=== PATIENT | female | born 1940 | race Caucasian/White ===

== ENCOUNTER 2019-05-27 09:39 | Outpatient (CLI) | payer MEDICARE, OTHER, SELFPAY ==
--- NOTE | ~2019-05-27 | XR_ITS ---
EXAMINATION: XR chest 2V EXAM DATE: 05/27/2019 10:32 INDICATION: Dyspnea. TECHNIQUE: Frontal and lateral projections of the chest obtained and reviewed. There is no prior osmani dy for comparison. FINDINGS: The lungs are clear. There are no pleural effusions. The cardiomediastinal silhouette is within normal limits. There is no pneumothorax suspected. There are mild bony degenerative changes. There is right humeral head rotator cuff repair anchor. IMPRESSION: Unremarkable chest x-ray exam. Reviewed, dictated and finalized at location B. UP SUPERVISOR
--- NOTE | 2019-05-27 10:15 | ECG_ITS ---
Measurements Intervals [place] Rate: 71 P: 69 [place]: 171 QRS: 58 QRSD: 98 T: 75 QT: 391 QTc: 426 Interpretive Statements SINUS RHYTHM NORMAL ECG Electronically Signed On 05-27-2019 10:25:55 MATERIAL CREW SUPERVISOR by Jovanny Castro D.O.
== END 2019-05-27 09:40 | disposition home or self-care (01) ==
LOC: CHSLAB 09:42
PROVIDERS: PCP Internal Medicine; Visit Provider Internal Medicine
DX: R00.2 Palpitations (principal); R06.00 Dyspnea, unspecified
CPT/HCPCS: 71046; 93005

== ENCOUNTER 2019-09-17 08:38 | Outpatient (CLI) | payer MEDICARE, SELFPAY ==
[2019-09-17 08:49] LABS: Basophils Absolute Auto 0.02 K/mm3 (0.00-0.10); Basophils Percent Auto 0.3 % (0.0-1.0); Eosinophils Absolute Auto 0.07 K/mm3 (0.02-0.50); Eosinophils Percent Auto 1.1 % (1.0-6.0); Hematocrit 39.9 % (35.0-42.0); Hemoglobin 13.5 g/dL (11.7-13.8); Immature Granulocyte Absolute 0.02 K/mm3 (0.00-0.00); Immature Granulocyte Percent A 0.3 % (0.0-0.0); Mean Corpuscular HGB Conc 33.8 g/dL (32.0-36.0); Mean Corpuscular Hemoglobin 29.7 pg (27.0-31.0); Mean Corpuscular Volume 87.9 fL (78.0-102.0); Monocytes Absolute Auto 0.64 K/mm3 (0.10-0.90); Monocytes Percent Auto 10.3 % (2.0-11.0); Neutrophils Absolute Auto 3.7 K/mm3 (1.7-7.2); Platelet Count Result 316 K/mm3 (150-420); Red Blood Count 4.54 M/mm3 (4.20-5.40); Red Cell Distribution Width 12.8 % (11.6-14.4); White Blood Count 6.2 K/mm3 (4.8-10.8)
[2019-09-17 09:00] LABS: Add Urine Microscopic? NO; Appearance Urine Clear (Clear); Bilirubin Urine Negative (Negative); Blood Urine Negative (Negative); Color Urine Yellow (Yellow); Glucose Urine UA Negative (Negative); Ketones Urine Negative (Negative); Leukocyte Esterase Ur Negative (Negative); Nitrate Urine Negative (Negative); Protein Urine Negative (Negative); Urobilinogen Urine 0.2 mg/dL (0.2-1.0)
[2019-09-17 09:35] LABS: Alanine Aminotransferase 50 U/L (14-59); Alkaline Phosphatase 135 U/L (46-116); Aspartate Amino Transferase 35 U/L (15-37); Bilirubin,Total 0.7 mg/dL (0.00-1.00); Blood Urea Nitrogen 17 mg/dL (7-18); Calcium 8.7 mg/dL (8.5-10.1); Carbon Dioxide 31 mmol/L (21-32); Chloride 98 mmol/L (98-108); Creatine Kinase 121 U/L (26-192); Estimated Glomerular Filt Rate > 60; Free T3 2.44 pg/mL (2.18-3.98); Free T4 Free Thyroxine 1.18 ng/dL (0.76-1.46); Glucose 93 mg/dL (70-99); HDL Direct 57 mg/dL (40-60); Osmolality Calculated 283 mOsm/kg (285-295); Sodium 136 mmol/L (136-145); Thyroid Stimulating Hormone 1.13 uIU/mL (0.36-3.74); Total Protein 6.8 g/dL (6.4-8.2); Triglycerides 111 mg/dL (0-150)
[2019-09-17 09:47] LABS: Cholesterol 195 mg/dL (0-200); LDL Cholesterol Calculated 116 mg/dL (<130)
[2019-09-22 20:24] LABS: Vitamin D 25 Hydroxy 54 ng/mL (30-100)
== END 2019-09-17 08:39 | disposition home or self-care (01) ==
LOC: CHSLAB 08:41
PROVIDERS: PCP Internal Medicine; Visit Provider Internal Medicine
DX: E78.2 Mixed hyperlipidemia (principal); M81.0 Age-related osteoporosis without current pathological fracture; E04.1 Nontoxic single thyroid nodule; I10 Essential (primary) hypertension; D13.6 Benign neoplasm of pancreas
CPT/HCPCS: 36415; 80053; 80061; 81003; 82306; 82550; 84439; 84443; 84481; 85025

== ENCOUNTER 2020-01-28 13:19 | Outpatient (CLI) | payer MEDICARE, OTHER, SELFPAY ==
[2020-01-28 13:40] VITALS: BP 128/69; PULSE 72; RESP 14; TEMP 36.4; O2SAT 98
[2020-01-28] MEDS: ZOLEDRONIC ACID 5 MG/100 ML 100 ML 400 MG IVPB (13:45)
--- NOTE | 2020-01-28 14:11 | PC.NURSE ---
Here for yearly Reclast infusion. No concerns voiced. Reclast infusion administered. Tolerated well. Reinforced teaching on Relcast medication. Safe exit of hospital.
== END 2020-01-28 13:20 | disposition home or self-care (01) ==
PROVIDERS: PCP Internal Medicine; Visit Provider Internal Medicine
DX: M81.0 Age-related osteoporosis without current pathological fracture (principal)
CPT/HCPCS: 96374; J3489

== ENCOUNTER 2020-03-25 08:53 | Outpatient (CLI) | payer MEDICARE, SELFPAY ==
[2020-03-25 09:04] LABS: Basophils Absolute Auto 0.03 K/mm3 (0.00-0.10); Basophils Percent Auto 0.5 % (0.0-1.0); Eosinophils Percent Auto 1.5 % (1.0-6.0); Hematocrit 40.9 % (35.0-42.0); Hemoglobin 13.3 g/dL (11.7-13.8); Immature Granulocyte Absolute 0.02 K/mm3 (0.00-0.00); Immature Granulocyte Percent A 0.3 % (0.0-0.0); Lymphocytes Absolute Auto 1.99 K/mm3 (1.10-4.50); Lymphocytes Percent Auto 29.9 % (18.0-42.0); Mean Corpuscular HGB Conc 32.5 g/dL (32.0-36.0); Mean Corpuscular Volume 89.1 fL (78.0-102.0); Mean Platelet Volume 8.9 fl (9.2-11.8); Monocytes Absolute Auto 0.53 K/mm3 (0.10-0.90); Neutrophils Percent Auto 59.8 % (50.0-70.0); Platelet Count Result 327 K/mm3 (150-420); Red Blood Count 4.59 M/mm3 (4.20-5.40); Red Cell Distribution Width 13.1 % (11.6-14.4); White Blood Count 6.7 K/mm3 (4.8-10.8)
[2020-03-25 09:14] LABS: Add Urine Microscopic? NO; Appearance Urine Clear (Clear); Bilirubin Urine Negative (Negative); Blood Urine Negative (Negative); Color Urine Yellow (Yellow); Glucose Urine UA Negative (Negative); Ketones Urine Negative (Negative); Leukocyte Esterase Ur Negative (Negative); Nitrate Urine Negative (Negative); Protein Urine Negative (Negative); Urobilinogen Urine 0.2 mg/dL (0.2-1.0)
[2020-03-25 09:35] LABS: Creatinine Urine 44.16 mg/dL (40-278); MALB Creatinine Ratio 29.4 mg/g (0-30); Microalbumin Urine Random < 13.0 mg/L
[2020-03-25 09:54] LABS: Alanine Aminotransferase 74 U/L (14-59); Albumin Level 4.2 g/dL (3.4-5.0); Alkaline Phosphatase 166 U/L (46-116); Anion Gap 9 mmol/L (8-16); Aspartate Amino Transferase 43 U/L (15-37); Bilirubin,Total 0.6 mg/dL (0.00-1.00); Blood Urea Nitrogen 16 mg/dL (7-18); Calcium 9.2 mg/dL (8.5-10.1); Carbon Dioxide 29 mmol/L (21-32); Chloride 99 mmol/L (98-108); Cholesterol 188 mg/dL (0-200); Creatine Kinase 206 U/L (26-192); Estimated Glomerular Filt Rate > 60; Free T3 2.86 pg/mL (2.18-3.98); Free T4 Free Thyroxine 1.11 ng/dL (0.76-1.46); Glucose 89 mg/dL (70-99); HDL Direct 54 mg/dL (40-60); LDL Cholesterol Calculated 110 mg/dL (<130); Osmolality Calculated 284 mOsm/kg (285-295); Potassium 4.3 mmol/L (3.5-5.1); Sodium 137 mmol/L (136-145); Thyroid Stimulating Hormone 1.62 uIU/mL (0.36-3.74); Triglycerides 119 mg/dL (0-150)
[2020-03-30 12:08] LABS: Vitamin D 25 Hydroxy 54 ng/mL (30-100)
== END 2020-03-25 08:54 | disposition home or self-care (01) ==
LOC: CHSLAB 08:55
PROVIDERS: PCP Internal Medicine; Visit Provider Internal Medicine
DX: E78.2 Mixed hyperlipidemia (principal); I10 Essential (primary) hypertension; M81.0 Age-related osteoporosis without current pathological fracture; E04.1 Nontoxic single thyroid nodule; D13.6 Benign neoplasm of pancreas
CPT/HCPCS: 36415; 80053; 80061; 81003; 82043; 82306; 82550; 84439; 84443; 84481; 85025

== ENCOUNTER 2020-04-19 08:52 | Outpatient (CLI) | payer MEDICARE, SELFPAY ==
[2020-04-19 11:25] LABS: Alanine Aminotransferase 61 U/L (14-59); Albumin Level 4.3 g/dL (3.4-5.0); Alkaline Phosphatase 124 U/L (46-116); Anion Gap 8 mmol/L (8-16); Aspartate Amino Transferase 39 U/L (15-37); Bilirubin,Total 0.6 mg/dL (0.00-1.00); Blood Urea Nitrogen 16 mg/dL (7-18); Calcium 9.4 mg/dL (8.5-10.1); Carbon Dioxide 30 mmol/L (21-32); Chloride 98 mmol/L (98-108); Estimated Glomerular Filt Rate 58; Glucose 87 mg/dL (70-99); Osmolality Calculated 282 mOsm/kg (285-295); Potassium 4.4 mmol/L (3.5-5.1); Sodium 136 mmol/L (136-145); Total Protein 7.2 g/dL (6.4-8.2)
== END 2020-04-19 08:53 | disposition home or self-care (01) ==
LOC: CHSLAB 08:53
PROVIDERS: PCP Internal Medicine; Visit Provider Internal Medicine
DX: R94.5 Abnormal results of liver function studies (principal)
CPT/HCPCS: 36415; 80053

== ENCOUNTER 2020-07-15 08:32 | Outpatient (CLI) | payer MEDICARE, SELFPAY ==
[2020-07-15 09:51] LABS: Alanine Aminotransferase 48 U/L (14-59); Albumin Level 4.1 g/dL (3.4-5.0); Alkaline Phosphatase 115 U/L (46-116); Anion Gap 5 mmol/L (8-16); Aspartate Amino Transferase 28 U/L (15-37); Bilirubin,Total 0.7 mg/dL (0.00-1.00); Blood Urea Nitrogen 13 mg/dL (7-18); Carbon Dioxide 31 mmol/L (21-32); Chloride 96 mmol/L (98-108); Estimated Glomerular Filt Rate > 60; Glucose 92 mg/dL (70-99); Osmolality Calculated 274 mOsm/kg (285-295); Potassium 4.3 mmol/L (3.5-5.1); Sodium 132 mmol/L (136-145); Total Protein 6.9 g/dL (6.4-8.2)
== END 2020-07-15 08:33 | disposition home or self-care (01) ==
LOC: CHSLAB 08:34
PROVIDERS: PCP Internal Medicine; Visit Provider Internal Medicine
DX: R94.5 Abnormal results of liver function studies (principal)
CPT/HCPCS: 36415; 80053

== ENCOUNTER 2020-09-16 08:54 | Outpatient (CLI) | payer MEDICARE, SELFPAY ==
[2020-09-16 09:11] LABS: Basophils Absolute Auto 0.02 K/mm3 (0.00-0.10); Basophils Percent Auto 0.3 % (0.0-1.0); Eosinophils Absolute Auto 0.11 K/mm3 (0.02-0.50); Eosinophils Percent Auto 1.5 % (1.0-6.0); Hematocrit 41.8 % (35.0-42.0); Hemoglobin 14.1 g/dL (11.7-13.8); Immature Granulocyte Absolute 0.03 K/mm3 (0.00-0.00); Immature Granulocyte Percent A 0.4 % (0.0-0.0); Lymphocytes Absolute Auto 1.73 K/mm3 (1.10-4.50); Lymphocytes Percent Auto 23.3 % (18.0-42.0); Mean Corpuscular HGB Conc 33.7 g/dL (32.0-36.0); Mean Corpuscular Hemoglobin 29.3 pg (27.0-31.0); Mean Corpuscular Volume 86.9 fL (78.0-102.0); Mean Platelet Volume 9.1 fl (9.2-11.8); Monocytes Absolute Auto 0.64 K/mm3 (0.10-0.90); Monocytes Percent Auto 8.6 % (2.0-11.0); Neutrophils Absolute Auto 4.9 K/mm3 (1.7-7.2); Neutrophils Percent Auto 65.9 % (50.0-70.0); Platelet Count Result 288 K/mm3 (150-420); Red Blood Count 4.81 M/mm3 (4.20-5.40); Red Cell Distribution Width 12.8 % (11.6-14.4); White Blood Count 7.4 K/mm3 (4.8-10.8)
[2020-09-16 09:25] LABS: Add Urine Microscopic? NO; Appearance Urine Clear (Clear); Bilirubin Urine Negative (Negative); Blood Urine Negative (Negative); Color Urine Yellow (Yellow); Glucose Urine UA Negative (Negative); Ketones Urine Negative (Negative); Leukocyte Esterase Ur Negative (Negative); Nitrate Urine Negative (Negative); Protein Urine Negative (Negative); Urobilinogen Urine 0.2 mg/dL (0.2-1.0)
[2020-09-16 10:18] LABS: Alanine Aminotransferase 61 U/L (14-59); Albumin Level 4.1 g/dL (3.4-5.0); Alkaline Phosphatase 135 U/L (46-116); Anion Gap 10 mmol/L (8-16); Aspartate Amino Transferase 34 U/L (15-37); Bilirubin,Total 0.7 mg/dL (0.00-1.00); Blood Urea Nitrogen 16 mg/dL (7-18); Calcium 9.4 mg/dL (8.5-10.1); Carbon Dioxide 30 mmol/L (21-32); Chloride 98 mmol/L (98-108); Cholesterol 199 mg/dL (0-200); Estimated Glomerular Filt Rate 60; Free T3 2.75 pg/mL (2.18-3.98); Free T4 Free Thyroxine 1.12 ng/dL (0.76-1.46); Glucose 91 mg/dL (70-99); HDL Direct 53 mg/dL (40-60); LDL Cholesterol Calculated 120 mg/dL (<130); Osmolality Calculated 287 mOsm/kg (285-295); Potassium 4.2 mmol/L (3.5-5.1); Sodium 138 mmol/L (136-145); Thyroid Stimulating Hormone 1.78 uIU/mL (0.36-3.74); Total Protein 6.8 g/dL (6.4-8.2); Triglycerides 130 mg/dL (0-150)
[2020-09-18 20:40] LABS: Vitamin D 25 Hydroxy 44 ng/mL (30-100)
[2020-09-20 04:33] LABS: Thyroxin Binding Globulin 17.3 mcg/mL (13.5-30.9)
== END 2020-09-16 08:55 | disposition home or self-care (01) ==
LOC: CHSLAB 08:57
PROVIDERS: PCP Internal Medicine; Visit Provider Internal Medicine
DX: E78.2 Mixed hyperlipidemia (principal); I10 Essential (primary) hypertension; E04.1 Nontoxic single thyroid nodule; M81.0 Age-related osteoporosis without current pathological fracture
CPT/HCPCS: 36415; 80053; 80061; 81003; 82306; 84439; 84442; 84443; 84481; 85025

== ENCOUNTER 2020-09-28 15:32 | Outpatient (CLI) | payer MEDICARE, OTHER, SELFPAY ==
--- NOTE | ~2020-09-28 | XR_ITS ---
XR ankle LT min 3V DATE: 09/28/2020 15:54 INDICATION: Lateral left ankle pain TECHNIQUE: 4 views COMPARISON: None FINDINGS: There is mild plantar and posterior calcaneal enthesopathy. There is mild lateral soft tissue swelling of the ankle. No fracture or dislocation of the ankle or disruption of the ankle mortise is evident. No periosteal reaction or bone destruction. IMPRESSION: Mild lateral soft tissue swelling Plantar and posterior calcaneal enthesopathy Reviewed, dictated and finalized at location A.
== END 2020-09-28 15:33 | disposition home or self-care (01) ==
LOC: CHSIMG 15:34
PROVIDERS: PCP Internal Medicine; Visit Provider Internal Medicine
DX: M25.572 Pain in left ankle and joints of left foot (principal); M25.472 Effusion, left ankle
CPT/HCPCS: 73610

== ENCOUNTER 2020-10-04 08:02 | Outpatient (CLI) | payer MEDICARE, OTHER, SELFPAY ==
--- NOTE | ~2020-10-04 | CT_ITS ---
EXAMINATION: CT abdomen w con INDICATION: Right upper quadrant pain, elevated liver function tests, history of pancreatic cancer an d Whipple procedure TECHNIQUE: Computed tomographic images of the abdomen were obtained after the administration of 100 c c of Omnipaque 350 intravenous contrast. The dose-length product (DLP) was 312.25 mGy-cm. Automated e xposure control and iterative reconstruction technique were employed. COMPARISON: 09/29/2013 FINDINGS: The lung bases are clear. The heart size is normal. Punctate calcifications in otherwise no rmal appearing liver and spleen likely represent healed granulomatous disease. Changes of Whipple pro cedure are noted. The pancreas and gallbladder are absent. The adrenal glands and right kidney are no rmal. There is a 9 mm cyst of the left kidney. There are no pathologically enlarged abdominal lymph n odes. There is a small group of retroperitoneal lymph nodes in the upper abdomen which are normal in short axis diameter but were not definitely seen on the comparison examination. There is no free intr aperitoneal gas or evidence of bowel obstruction. There is moderate lumbar spondylosis. A tiny fat-co ntaining umbilical hernia is noted. IMPRESSION: 1. No CT correlate for the patient's symptoms. Reviewed, dictated and finalized at location A.
== END 2020-10-04 08:03 | disposition home or self-care (01) ==
LOC: CHSIMG 08:03
PROVIDERS: PCP Internal Medicine; Visit Provider Internal Medicine
DX: R10.11 Right upper quadrant pain (principal); D49.0 Neoplasm of unspecified behavior of digestive system
CPT/HCPCS: 74160; Q9967

== ENCOUNTER 2020-10-05 11:54 | Outpatient (CLI) | payer MEDICARE, OTHER, SELFPAY ==
--- NOTE | ~2020-10-05 | XR_ITS ---
EXAMINATION: XR chest 2V DATE: 10/05/2020 12:18 INDICATION: Shortness of breath TECHNIQUE: PA and lateral views of the chest are obtained. COMPARISON: 05/27/2019 FINDINGS: The lungs are free of acute opacities. There is no pleural effusion or pneumothorax. The ca rdiomediastinal silhouette is normal. There is moderate thoracic spondylosis. A suture anchor is note d in the right humeral head. IMPRESSION: 1. No acute cardiopulmonary abnormality. Reviewed, dictated and finalized at location A.
--- NOTE | 2020-10-05 12:09 | ECHO_ITS ---
Patient Info Name: Julia Comer Age: 80 years : 1940 Gender: Female Ht: 64 in Wt: 164 lbs BSA: 1.85 m2 HR: 73 bpm BP: 142 / 71 mmHg Heart Rhythm: Sinus Rhythm Technical Quality: Good Exam Date: 10/05/2020 12:03 PM Exam Location: [facility] Patient Status: Outpatient Admit Date: 10/05/2020 Staff Ordering Physician: Toni Tracey MD Control Clerk Head: Shannan Calero RDCS Attending Provider: Toni Tracey MD Referring Physician: Alexy NOEL; Exam Type: CA echo doppler color flow Study Info Indications I10 - Essential (primary) hypertension R06.00 - Dyspnea, unspecified Complete two-dimensional, color flow and Doppler transthoracic echocardiogram is performed. Strain analysis performed. History/Risk Factors Hypertension: Yes Dyslipidemia: No Congenital Heart Disease (CHD): No Peripheral Arterial Disease (PAD): No Myocardial Infarction (CO): No Chronic Lung Disease: No Obesity: Yes Renal Disease: No Coronary Artery Disease (CAD) No Congestive Heart Failure (CHF): No Cardiomyopathy/LV Systolic Dysfunction: No Diabetes Mellitus: No COPD: No Tobacco Use: Never Cerebrovascular Disease: No Family History: Diabetes Mellitus, Coronary Artery Disease Deep Vein Thrombosis (DVT): None Dialysis: None Frailty Scale (CSHA): 2: Well Cardiac Arrest: No Summary 1. Complete two-dimensional, color flow and Doppler transthoracic echocardiogram is performed. 2. Left ventricular chamber dimension is normal. 3. Left ventricular systolic function is normal, estimated at 65-70%. 4. The left ventricular diastolic function is grade I diastolic dysfunction. 5. E/e' 9 is minimally elevated. 6. Global longitudinal strain is normal at -22.2%. 7. Left atrial chamber dimension is mildly enlarged. 8. 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 9. There is mild tricuspid valve regurgitation. 10. No pulmonary hypertension, estimated pulmonary arterial systolic pressure is 35 mmHg. Left Ventricle E/e' 9 is minimally elevated. Global longitudinal strain is normal at -22.2%. Left ventricular chamber dimension is normal. Left ventricular systolic function is normal, estimated at 65-70%. The left ventricular diastolic function is grade I diastolic dysfunction. Right Ventricle Right ventricular systolic function is normal and with normal TAPSE 2.6 cm.. Right ventricular chamber dimension is normal. Left Atria Left atrial chamber dimension is mildly enlarged. Right Atria Right atrial chamber dimension is normal. Atrial Septum Mild atrial septal aneurysm without evidence of shunt by color doppler. Aortic Valve The aortic valve is trileaflet. There is no aortic valve stenosis. There is no aortic valve regurgitation. Pulmonic Valve There is no pulmonic regurgitation. Mitral Valve There is no mitral valve stenosis. There is no mitral valve regurgitation. Tricuspid Valve There is mild tricuspid valve regurgitation. No pulmonary hypertension, estimated pulmonary arterial systolic pressure is 35 mmHg. Pericardium/Pleural There is no pericardial effusion. Inferior Vena Cava Normal inferior vena cava with >50% collapse upon inspiration consistent with normal right atrial pressure, 5 mmHg. Aorta The aortic root size at the sinus of Valsalva is normal. Left Ventricular Outflow Tract
== END 2020-10-05 11:55 | disposition home or self-care (01) ==
LOC: CHSIMG 11:58
PROVIDERS: PCP Internal Medicine; Visit Provider Internal Medicine
DX: R06.00 Dyspnea, unspecified (principal); I10 Essential (primary) hypertension
CPT/HCPCS: 71046; 93306

== ENCOUNTER 2020-11-16 12:21 | Outpatient (CLI) | payer MEDICARE, OTHER, SELFPAY ==
--- NOTE | ~2020-11-16 | MM_ITS ---
EXAMINATION: MM screening [facility] BI [place] HISTORY: Screening TECHNIQUE: Craniocaudal and mediolateral oblique 3-D tomosynthesis images were obtained and synthetic 2-D images were generated. CAD analysis was submitted and interpreted. COMPARISON: Comparison to multiple prior studies sequentially, with oldest reviewed study dated 03/16. BREAST PARENCHYMAL COMPOSITION: There are scattered areas of fibroglandular density. FINDINGS: There is no evidence of suspicious mass, calcification, or architectural distortion to sugg est malignancy in either breast. There has been no suspicious interval change. IMPRESSION: 1. No mammographic evidence of malignancy. 2. Recommend routine screening mammography in one year. BI-RADS Category 1: Negative Reviewed, dictated and finalized at location A.
--- NOTE | ~2020-11-16 | DEXA_ITS ---
Bone Density Report Name: Julia Comer Age: 80 Sex: Female Ethnicity: White Date of : 1940 Indication: monitoring treatment; height loss; cancer; Referring Provider: Toni Tracey Study: Bone densitometry was performed. Exam Date: November 16, 2020 Accession number: [id number] Bone Density: Region BMD T-score Z-score Classification AP Spine(L1-L4) 1.025 -0.2 2.4 Normal Femoral Neck (Left) 0.714 -1.2 1.0 Osteopenia Total Hip (Left) 0.939 0.0 2.0 Normal Femoral Neck (Right) 0.665 -1.7 0.6 Osteopenia Total Hip (Right) 0.931 -0.1 1.9 Normal Femoral Neck Mean 0.690 -1.4 0.8 Osteopenia Total Hip Mean 0.935 -0.1 1.9 Normal World Health Organization criteria for BMD impression classify patients as: Normal (T-score at or above -1.0), Osteopenia (T-score between -1.0 and -2.5), or Osteoporosis (T-score at or below -2.5). 10-year Fracture Risk: FRAX not reported because: Treated for osteoporosis Previous Exams: Region Exam Age BMD T-score BMD Change BMD Change Date g/cm2 vs Baseline vs Previous AP Spine (L1-L4) 11/16/2020 80 1.025 -0.2 -0.028 (-2.7%) -0.035 (-3.3%) 11/14/2018 78 1.060 0.1 0.007 (0.7%) 0.072 (7.3%)* 09/19/2016 76 0.988 -0.5 -0.065 (-6.2%) -0.027 (-2.7%) 04/15/2014 74 1.015 -0.3 -0.038 (-3.6%) -0.033 (-3.1%) 03/31/2011 71 1.048 0.0 -0.005 (-0.5%) 0.006 (0.6%) 03/22/2009 69 1.042 0.0 -0.011 (-1.1%) -0.011 (-1.1%) 03/01/2007 67 1.053 0.1 Total Hip(Left) 11/16/2020 80 0.939 0.0 -0.050 (-5.0%) -0.027 (-2.8%) 11/14/2018 78 0.966 0.2 -0.023 (-2.3%) 0.065 (7.2%)* 09/19/2016 76 0.901 -0.3 -0.088 (-8.9%) -0.006 (-0.7%) 04/15/2014 74 0.907 -0.3 -0.082 (-8.3%) -0.044 (-4.6%) 03/31/2011 71 0.951 0.1 -0.038 (-3.8%) -0.019 (-2.0%) 03/22/2009 69 0.970 0.2 -0.018 (-1.8%) -0.018 (-1.8%) 03/01/2007 67 0.988 0.4 Total Hip(Right) 11/16/2020 80 0.931 -0.1 -0.054 (-5.5%) 0.008 (0.9%)# 11/14/2018 78 0.923 -0.2 -0.063 (-6.4%) 0.004 (0.4%) 04/15/2014 74 0.919 -0.2 -0.067 (-6.8%) -0.026 (-2.7%) 03/31/2011 71 0.944 0.0 -0.041 (-4.2%) -0.027 (-2.8%) 03/22/2009 69 0.971 0.2 -0.014 (-1.5%) -0.014 (-1.5%) 03/01/2007 67 0.986 0.4 *Denotes significance at 95% confidence level, LSC for AP Spine = 0.022 g/cm2, LSC for Total Hip = 0.027 g/cm2 # Denotes dissimilar scan types or analysis methods Clinical Information Provided by Patient: I
== END 2020-11-16 12:22 | disposition home or self-care (01) ==
LOC: CHSIMG 12:24
PROVIDERS: PCP Internal Medicine; Visit Provider Internal Medicine
DX: M81.0 Age-related osteoporosis without current pathological fracture (principal); Z12.31 Encounter for screening mammogram for malignant neoplasm of breast
CPT/HCPCS: 77063; 77067; 77080

== ENCOUNTER 2021-01-12 15:47 | Outpatient (CLI) | payer MEDICARE, SELFPAY ==
[2021-01-12 16:32] LABS: Alanine Aminotransferase 56 U/L (14-59); Albumin Level 4.2 g/dL (3.4-5.0); Alkaline Phosphatase 115 U/L (46-116); Anion Gap 10 mmol/L (8-16); Aspartate Amino Transferase 32 U/L (15-37); Bilirubin,Total 0.6 mg/dL (0.00-1.00); Blood Urea Nitrogen 16 mg/dL (7-18); Calcium 9.1 mg/dL (8.5-10.1); Carbon Dioxide 29 mmol/L (21-32); Chloride 96 mmol/L (98-108); Estimated Glomerular Filt Rate > 60; Glucose 89 mg/dL (70-99); Osmolality Calculated 280 mOsm/kg (285-295); Potassium 4.2 mmol/L (3.5-5.1); Sodium 135 mmol/L (136-145); Total Protein 6.6 g/dL (6.4-8.2)
== END 2021-01-12 15:48 | disposition home or self-care (01) ==
LOC: CHSLAB 15:49
PROVIDERS: PCP Internal Medicine; Visit Provider Internal Medicine
DX: R94.5 Abnormal results of liver function studies (principal)
CPT/HCPCS: 36415; 80053

== ENCOUNTER 2021-01-27 13:01 | Outpatient (CLI) | payer MEDICARE, OTHER, SELFPAY ==
[2021-01-27 13:15] VITALS: BP 128/74; PULSE 68; RESP 14; TEMP 36.4; O2SAT 98; BMI 26.6
[2021-01-27] MEDS: ZOLEDRONIC ACID 5 MG/100 ML 100 ML 300 MG IVPB (13:20)
== END 2021-01-27 13:02 | disposition home or self-care (01) ==
LOC: CHSTREATRM 13:04
PROVIDERS: PCP Internal Medicine; Visit Provider Internal Medicine
DX: M81.0 Age-related osteoporosis without current pathological fracture (principal)
CPT/HCPCS: 96365; J3489

== ENCOUNTER 2021-03-31 08:30 | Outpatient (CLI) | payer MEDICARE, OTHER, SELFPAY ==
[2021-03-31 08:45] LABS: Basophils Absolute Auto 0.03 K/mm3 (0.00-0.10); Basophils Percent Auto 0.4 % (0.0-1.0); Eosinophils Absolute Auto 0.14 K/mm3 (0.02-0.50); Hematocrit 41.6 % (35.0-42.0); Hemoglobin 13.9 g/dL (11.7-13.8); Immature Granulocyte Absolute 0.02 K/mm3 (0.00-0.00); Immature Granulocyte Percent A 0.3 % (0.0-0.0); Lymphocytes Absolute Auto 2.49 K/mm3 (1.10-4.50); Lymphocytes Percent Auto 35.8 % (18.0-42.0); Mean Corpuscular HGB Conc 33.4 g/dL (32.0-36.0); Mean Corpuscular Hemoglobin 29.4 pg (27.0-31.0); Mean Corpuscular Volume 88.1 fL (78.0-102.0); Monocytes Absolute Auto 0.55 K/mm3 (0.10-0.90); Monocytes Percent Auto 7.9 % (2.0-11.0); Neutrophils Absolute Auto 3.7 K/mm3 (1.7-7.2); Neutrophils Percent Auto 53.6 % (50.0-70.0); Platelet Count Result 330 K/mm3 (150-420); Red Blood Count 4.72 M/mm3 (4.20-5.40); Red Cell Distribution Width 12.9 % (11.6-14.4)
[2021-03-31 08:54] LABS: Add Urine Microscopic? NO; Appearance Urine Clear (Clear); Bilirubin Urine Negative (Negative); Blood Urine Negative (Negative); Color Urine Light Yellow (Yellow); Glucose Urine UA Negative (Negative); Ketones Urine Negative (Negative); Leukocyte Esterase Ur Negative (Negative); Nitrate Urine Negative (Negative); Protein Urine Negative (Negative); Specific Grav Ur <= 1.005 (1.010-1.020); Urobilinogen Urine 0.2 mg/dL (0.2-1.0)
[2021-03-31 10:17] LABS: Alanine Aminotransferase 63 U/L (14-59); Alkaline Phosphatase 153 U/L (46-116); Anion Gap 9 mmol/L (8-16); Aspartate Amino Transferase 36 U/L (15-37); Bilirubin,Total 0.6 mg/dL (0.00-1.00); Blood Urea Nitrogen 16 mg/dL (7-18); Calcium 9.1 mg/dL (8.5-10.1); Carbon Dioxide 28 mmol/L (21-32); Chloride 96 mmol/L (98-108); Cholesterol 201 mg/dL (0-200); Creatine Kinase 141 U/L (26-192); Estimated Glomerular Filt Rate > 60; Free T3 2.64 pg/mL (2.18-3.98); Free T4 Free Thyroxine 1.06 ng/dL (0.76-1.46); Glucose 91 mg/dL (70-99); HDL Direct 51 mg/dL (40-60); LDL Cholesterol Calculated 120 mg/dL (<130); Osmolality Calculated 277 mOsm/kg (285-295); Potassium 4.6 mmol/L (3.5-5.1); Sodium 133 mmol/L (136-145); Thyroid Stimulating Hormone 1.45 uIU/mL (0.36-3.74); Total Protein 6.7 g/dL (6.4-8.2); Triglycerides 151 mg/dL (0-150)
[2021-04-04 07:35] LABS: Vitamin D 25 Hydroxy 45 ng/mL (30-100)
== END 2021-03-31 08:31 | disposition home or self-care (01) ==
LOC: CHSLAB 08:33
PROVIDERS: PCP Internal Medicine; Visit Provider Internal Medicine
DX: E78.2 Mixed hyperlipidemia (principal); I10 Essential (primary) hypertension; E04.1 Nontoxic single thyroid nodule; M81.0 Age-related osteoporosis without current pathological fracture
CPT/HCPCS: 36415; 80053; 80061; 81003; 82306; 82550; 84439; 84443; 84481; 85025

== ENCOUNTER 2021-05-23 13:50 | Outpatient (CLI) | payer MEDICARE, OTHER, SELFPAY ==
--- NOTE | ~2021-05-23 | XR_ITS ---
EXAMINATION: XR hip LT min 2V DATE: 05/23/2021 14:15 INDICATION: Left hip pain. TECHNIQUE: 3 views of left hip were obtained. COMPARISON: Left hip radiographs 04/02/2012 FINDINGS: Bone alignment is normal. No fracture. There is mild left hip osteoarthritis. IMPRESSION: 1. Mild left hip osteoarthritis. Reviewed, dictated and finalized at location E. INES TECHNICIAN
--- NOTE | ~2021-05-23 | XR_ITS ---
EXAMINATION: XR hip RT min 2V DATE: 05/23/2021 14:15 INDICATION: Right hip pain. TECHNIQUE: 3 views of right hip were obtained. COMPARISON: CT abdomen and pelvis 09/29/2013 FINDINGS: Bone alignment is normal. No fracture. There are chronic small benign bone islands in proxi mal right femur. There is mild right hip osteoarthritis. IMPRESSION: 1. Mild right hip osteoarthritis. Reviewed, dictated and finalized at location E. OCRITICAL CARE PHYSICIAN
== END 2021-05-23 13:51 | disposition home or self-care (01) ==
LOC: CHSIMG 13:52
PROVIDERS: PCP Internal Medicine; Visit Provider Internal Medicine
DX: M25.552 Pain in left hip (principal); M25.551 Pain in right hip
CPT/HCPCS: 73502

== ENCOUNTER 2021-05-24 07:00 | Outpatient (CLI) | payer MEDICARE, OTHER, SELFPAY ==
--- NOTE | ~2021-05-24 | MR_ITS ---
EXAMINATION: MR hip LT wo con, MR hip RT wo con DATE: 05/24/2021 09:27 INDICATION: Bilateral hip pain TECHNIQUE: 1. Magnetic resonance imaging (MRI) of the left hip was performed without intravenous contrast. Seque nces included full-field axial PD-weighted FS FSE and T1-weighted FSE, coronal of the pelvis with PD- weighted FS FSE, small field of view of the left hip with axial PD-weighted FS FSE, sagittal PD-weig hted FS FSE, coronal PD-weighted FS FSE and coronal T2 weighted FSE. Additional radial T1-weighted F GR oriented orthogonal to the left acetabular rim were obtained for evaluation of the labrum. 2. MRI of the right hip was performed without intravenous contrast. Sequences included small field of view of the right hip with axial PD-weighted FS FSE, sagittal PD-weighted FS FSE, coronal PD-weight ed FS FSE and coronal T2 weighted FSE. Additional radial T1-weighted FGR oriented orthogonal to the right acetabular rim were obtained for evaluation of the labrum. COMPARISON: None FINDINGS: Bones/labrum/cartilage: Alignment is normal. No fracture, avascular necrosis or pathologic marrow replacing process. Chondra l labral delamination tear at the base of the anterosuperior to posterior superior left acetabular la sadiq. More irregular degeneration of the anterior right acetabular labrum and chondral labral delamin ation without evident associated labral tear at the superolateral right acetabulum. Mild osteoarthrit is at the bilateral hips with posterior predominant nonuniform joint space narrowing and some shallow chondral fissuring without degenerative subchondral changes at the superolateral acetabula. Fluid: Symmetric physiologic amount of fluid within both hip joints. Mild increased fluid signal overlying t he cephalad tips of the bilateral greater trochanters consistent with mild bilateral trochanteric bur sitis. Soft tissues: Normal and symmetric muscle bulk and signal in the pelvis and visualized proximal thighs. There is a 4.9 x 2.1 x 2.1 cm intramuscular lipoma at the right quadratus femoris muscle. Tendinopathy at the gr eater trochanteric insertions of the bilateral gluteus medius tendons, mild on the left and moderate on the right without discrete tears. The iliopsoas, remaining gluteal and proximal hamstring tendons are normal. Limited evaluation of visceral organs of the pelvis is unremarkable. No pathologically e nlarged pelvic/inguinal lymphadenopathy. IMPRESSION: 1. 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 2. Mild bilateral trochanteric bursitis with bilateral gluteus medius tendinopathy without discrete t ear, mild on the left and moderate on the right. Reviewed, dictated and finalized at location A. ORT CLERK IMPRESSION: 1. 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 2. Mild bilateral trochanteric bursitis with bilateral gluteus medius tendinopa thy without discrete tear, mild on the left and moderate on the right.
== END 2021-05-24 07:01 | disposition home or self-care (01) ==
LOC: CHSIMG 07:03
PROVIDERS: PCP Internal Medicine; Visit Provider Internal Medicine
DX: M25.552 Pain in left hip (principal); M25.551 Pain in right hip
CPT/HCPCS: 73721

== ENCOUNTER 2021-07-26 09:10 | Outpatient (CLI) | payer MEDICARE, SELFPAY ==
[2021-07-26 09:56] LABS: Alanine Aminotransferase 51 U/L (14-59); Alkaline Phosphatase 123 U/L (46-116); Anion Gap 7 mmol/L (8-16); Aspartate Amino Transferase 36 U/L (15-37); Bilirubin,Total 0.6 mg/dL (0.00-1.00); Blood Urea Nitrogen 15 mg/dL (7-18); Calcium 8.9 mg/dL (8.5-10.1); Carbon Dioxide 30 mmol/L (21-32); Chloride 97 mmol/L (98-108); Estimated Glomerular Filt Rate > 60; Glucose 96 mg/dL (70-99); Osmolality Calculated 278 mOsm/kg (285-295); Potassium 4.4 mmol/L (3.5-5.1); Sodium 134 mmol/L (136-145); Total Protein 6.7 g/dL (6.4-8.2)
== END 2021-07-26 09:11 | disposition home or self-care (01) ==
LOC: CHSLAB 09:13
PROVIDERS: PCP Internal Medicine; Visit Provider Internal Medicine
DX: R74.8 Abnormal levels of other serum enzymes (principal)
CPT/HCPCS: 36415; 80053

== ENCOUNTER 2021-09-20 08:34 | Outpatient (CLI) | payer MEDICARE, SELFPAY ==
[2021-09-20 08:55] LABS: Basophils Absolute Auto 0.03 K/mm3 (0.00-0.10); Basophils Percent Auto 0.4 % (0.0-1.0); Eosinophils Absolute Auto 0.14 K/mm3 (0.02-0.50); Hematocrit 42.6 % (35.0-42.0); Hemoglobin 13.9 g/dL (11.7-13.8); Immature Granulocyte Absolute 0.03 K/mm3 (0.00-0.00); Immature Granulocyte Percent A 0.4 % (0.0-0.0); Lymphocytes Absolute Auto 2.49 K/mm3 (1.10-4.50); Lymphocytes Percent Auto 35.6 % (18.0-42.0); Mean Corpuscular HGB Conc 32.6 g/dL (32.0-36.0); Mean Corpuscular Hemoglobin 28.9 pg (27.0-31.0); Mean Corpuscular Volume 88.6 fL (78.0-102.0); Mean Platelet Volume 9.3 fl (9.2-11.8); Monocytes Absolute Auto 0.56 K/mm3 (0.10-0.90); Neutrophils Absolute Auto 3.8 K/mm3 (1.7-7.2); Neutrophils Percent Auto 53.6 % (50.0-70.0); Platelet Count Result 318 K/mm3 (150-420); Red Blood Count 4.81 M/mm3 (4.20-5.40); Red Cell Distribution Width 13.1 % (11.6-14.4)
[2021-09-20 09:13] LABS: Add Urine Microscopic? NO; Appearance Urine Clear (Clear); Bilirubin Urine Negative (Negative); Blood Urine Negative (Negative); Color Urine Light Yellow (Yellow); Glucose Urine UA Negative (Negative); Ketones Urine Negative (Negative); Leukocyte Esterase Ur Negative (Negative); Nitrate Urine Negative (Negative); Protein Urine Negative (Negative); Urobilinogen Urine 0.2 mg/dL (0.2-1.0); pH Urine 6.5 (5.0-8.0)
[2021-09-20 09:34] LABS: Alanine Aminotransferase 55 U/L (14-59); Alkaline Phosphatase 150 U/L (46-116); Anion Gap 8 mmol/L (8-16); Aspartate Amino Transferase 36 U/L (15-37); Bilirubin,Total 0.7 mg/dL (0.00-1.00); Blood Urea Nitrogen 16 mg/dL (7-18); Carbon Dioxide 28 mmol/L (21-32); Chloride 99 mmol/L (98-108); Cholesterol 192 mg/dL (0-200); Estimated Glomerular Filt Rate > 60; Free T4 Free Thyroxine 1.11 ng/dL (0.76-1.46); Glucose 99 mg/dL (70-99); HDL Direct 52 mg/dL (40-60); LDL Cholesterol Calculated 109 mg/dL (<130); Osmolality Calculated 281 mOsm/kg (285-295); Sodium 135 mmol/L (136-145); Thyroid Stimulating Hormone 1.77 uIU/mL (0.36-3.74); Total Protein 7.3 g/dL (6.4-8.2); Triglycerides 156 mg/dL (0-150)
[2021-09-22 13:31] LABS: Vitamin D 25 Hydroxy 46 ng/mL (30-100)
== END 2021-09-20 08:35 | disposition home or self-care (01) ==
LOC: CHSLAB 08:37
PROVIDERS: PCP Internal Medicine; Visit Provider Internal Medicine
DX: E04.1 Nontoxic single thyroid nodule (principal); I10 Essential (primary) hypertension; E78.2 Mixed hyperlipidemia; M81.0 Age-related osteoporosis without current pathological fracture; M25.551 Pain in right hip
CPT/HCPCS: 36415; 80053; 80061; 81003; 82306; 84439; 84443; 84481; 85025

== ENCOUNTER 2021-11-17 00:32 | Day surgery (SDC) | payer MEDICARE, OTHER, SELFPAY ==
[2021-11-02 08:09] VITALS: BMI 28.1
--- NOTE | 2021-11-16 11:33 | SUR.PREOP ---
1133 spoke with the patient regarding her prep and magnesium citrate. Instructed the patient not to take the magnesium citrate due to the recall. Patient voiced understanding.
--- NOTE | 2021-11-16 13:05 | WPDANESEPPF ---
Anes - Initial Pre Proc Eval Procedure: Operation Date: 11/17/21 09:30 Proposed Procedures p Screening Colonoscopy - Homero Schultz MD Date/Time: 11/16/21 13:05 Surgeon: Homero Schultz MD Pre Op Diagnosis: hx of colon polyps Patient Data Age: 81 Gender: F Height: 1.63 m Weight: 74.5 kg Allergies Allergy/AdvReac Type Severity Reaction Status Date / Time No Known Allergies Allergy Verified 11/17/21 08:53 Home Medications Medication Instructions Recorded Confirmed Type alprazolam 0.25 mg tablet 0.25 mg PO HS PRN Anxiety 01/27/21 11/17/21 History celecoxib 200 mg capsule 200 mg PO DAILY 01/27/21 11/17/21 History triamterene 37.5 1 tablet PO QAM 01/27/21 11/17/21 History mg-hydrochlorothiazide 25 mg tablet ascorbic acid (vitamin C) 500 mg 500 mg PO DAILY 11/02/21 11/17/21 History tablet aspirin 81 mg tablet 81 mg PO DAILY 11/02/21 11/17/21 History calcium 500 mg tablet 500 mg PO DAILY 11/02/21 11/17/21 History cholecalciferol (vitamin D3) 25 25 mcg PO DAILY 11/02/21 11/17/21 History mcg (1,000 unit) tablet (Vitamin D3) magnesium 500 mg tablet 1,000 mg PO DAILY 11/02/21 11/17/21 History multivitamin with minerals-folic 1 tablet PO DAILY 11/02/21 11/17/21 History acid 0.4 mg tablet zinc 50 mg tablet 50 mg PO DAILY 11/02/21 11/17/21 History Patient hx anesthesia problems: none Family hx anesthesia problems: none Results Review: All pre-operative results and documents have been reviewed as part of the pre-operative evaluation. [facility] Past Medical History Medical History (Updated 11/17/21 @ 09:05 by Homero Schultz MD) Anxiety Hypertension Social History Social History Smoking status: Never smoker Alcohol intake: current Drinks per week: 2 Substance use type: does not use Living arrangements: with family Spiritual care concerns: No Anes - Eval Final PreProcedure Day of Procedure 11/16/21 13:05 Patient weight: overweight Heart: regular rate and rhythm Lungs: clear to auscultation Airway: Mallampati scale class II Neurological: alert and oriented Last oral intake: >/= 8 hours ASA classification: II Emergent: no Anesthetic plan: proceed Anesthesia type and monitoring: general GIVS and standard monitoring Results Review: All pre-operative results and documents have been reviewed as part of the pre-operative evaluation. Informed Consent: The patient's anesthetic plan and its attendant risks and benefits were discussed with the patient/family/POA. Questions were solicited and answers provided to the satisfaction of the patient/family/POA.
[2021-11-17 08:54] VITALS: BP 152/72; PULSE 64; RESP 18; TEMP 36.5; O2SAT 99; BMI 28.5
--- NOTE | 2021-11-17 09:04 | PM.IMHP ---
H&P: HPI History of Present Illness Date/Time: 11/17/21 09:04 Chief Complaint: History of colon polyps. Narrative: This is a 81-year-old white female patient presents for screening colonoscopy. Patient has a prior history of colon polyps. Most recently 2016. Patient underwent a Whipple's resection at [facility] for a pancreatic lesion that ultimately was determined to be benign. She currently is doing well. She states her weight appetite bowel movements are normal. She has had no bleeding. Family history is noncontributory. Review of Systems Review of Systems: Review of systems noncontributory. [facility] Past Medical History Medical History (Updated 11/17/21 @ 09:05 by Homero Schultz MD) Anxiety Hypertension Social History Social History Smoking status: Never smoker Alcohol intake: current Drinks per week: 2 Substance use type: does not use Living arrangements: with family Spiritual care concerns: No Meds Home Medications and Allergies Home Medications Medication Instructions Recorded Confirmed Type alprazolam 0.25 mg tablet 0.25 mg PO HS PRN Anxiety 01/27/21 11/17/21 History celecoxib 200 mg capsule 200 mg PO DAILY 01/27/21 11/17/21 History triamterene 37.5 1 tablet PO QAM 01/27/21 11/17/21 History mg-hydrochlorothiazide 25 mg tablet ascorbic acid (vitamin C) 500 mg 500 mg PO DAILY 11/02/21 11/17/21 History tablet aspirin 81 mg tablet 81 mg PO DAILY 11/02/21 11/17/21 History calcium 500 mg tablet 500 mg PO DAILY 11/02/21 11/17/21 History cholecalciferol (vitamin D3) 25 25 mcg PO DAILY 11/02/21 11/17/21 History mcg (1,000 unit) tablet (Vitamin D3) magnesium 500 mg tablet 1,000 mg PO DAILY 11/02/21 11/17/21 History multivitamin with minerals-folic 1 tablet PO DAILY 11/02/21 11/17/21 History acid 0.4 mg tablet zinc 50 mg tablet 50 mg PO DAILY 11/02/21 11/17/21 History Allergies Allergy/AdvReac Type Severity Reaction Status Date / Time No Known Allergies Allergy Verified 11/17/21 08:53 Vital Signs Vital Signs - 24 hr 11/17/21 08:54 Temperature 97.7 F Pulse Rate 64 Respiratory Rate 18 Blood Pressure 152/72 H Pulse Oximetry 99 Oxygen Delivery Room Air Exam Narrative: Physical exam reveals patient to be alert. Vital signs stable. HEENT exam is unremarkable. Patient is anicteric. Lungs are clear to auscultation and percussion. Heart is without murmur or extra sounds. Abdominal exam bowel sounds are present soft nontender with no organomegaly. Digital external rectal exam is normal. Assessment and Plan Assessment and plan (1) History of colon polyps: Code(s): Z86.010 - Personal history of colonic polyps Status: Acute Assessment and Plan: Patient has a prior history of colon polyps. She presents today for neoplasia screening colonoscopy. Follow-up at 5 year intervals is advised. Further recommendations may be given after endoscopy.
[2021-11-17] MEDS: LACTATED RINGERS 1,000 ML 150 ML IV CONT (09:06)
[2021-11-17 10:45] VITALS: BP 116/63; PULSE 65; RESP 20; O2SAT 97
[2021-11-17 10:55] VITALS: BP 135/71; PULSE 62; RESP 17; O2SAT 100
[2021-11-17 11:05] VITALS: BP 166/77; PULSE 57; RESP 20; O2SAT 100
== END 2021-11-17 11:21 | disposition home or self-care (01) ==
PROVIDERS: PCP Internal Medicine; Visit Provider Internal Medicine Gastroenterology
PROC: 0DJD8ZZ Inspection of Lower Intestinal Tract, Via Natural or Artificial Opening Endoscopic (ICD-10-PCS; CPT 45378; principal; 2021-11-17 09:30)
DX: Z12.11 Encounter for screening for malignant neoplasm of colon (principal); K64.8 Other hemorrhoids; Z86.010 Personal history of colon polyps; I10 Essential (primary) hypertension; F41.9 Anxiety disorder, unspecified; Z79.82 Long term (current) use of aspirin
CPT/HCPCS: G0105; J2704; J7120

== ENCOUNTER 2022-01-26 14:18 | Outpatient (CLI) | payer MEDICARE, OTHER, SELFPAY ==
--- NOTE | ~2022-01-26 | MM_ITS ---
EXAMINATION: MM screening [facility] [place] HISTORY: Screening TECHNIQUE: Craniocaudal and mediolateral oblique 3-D tomosynthesis images were obtained and synthetic 2-D images were generated. CAD analysis was submitted and interpreted. COMPARISON: Comparison to multiple prior studies sequentially, with oldest reviewed study dated 06/2020. BREAST PARENCHYMAL COMPOSITION: There are scattered areas of fibroglandular density. FINDINGS: There is no evidence of suspicious mass, calcification, or architectural distortion to sugg est malignancy in either breast. There has been no suspicious interval change. IMPRESSION: 1. No mammographic evidence of malignancy. 2. Recommend routine screening mammography in one year. BI-RADS Category 1: Negative Reviewed, dictated and finalized at location A.
== END 2022-01-26 14:19 | disposition home or self-care (01) ==
LOC: CHSIMG 14:20
PROVIDERS: PCP Internal Medicine; Visit Provider Internal Medicine
DX: Z12.31 Encounter for screening mammogram for malignant neoplasm of breast (principal)
CPT/HCPCS: 77063; 77067

== ENCOUNTER 2022-03-29 09:34 | Outpatient (CLI) | payer MEDICARE, OTHER, SELFPAY ==
[2022-03-29 10:05] LABS: Basophils Absolute Auto 0.03 K/mm3 (0.00-0.10); Basophils Percent Auto 0.5 % (0.0-1.0); Eosinophils Absolute Auto 0.09 K/mm3 (0.02-0.50); Eosinophils Percent Auto 1.4 % (1.0-6.0); Hematocrit 40.7 % (35.0-42.0); Hemoglobin 13.4 g/dL (11.7-13.8); Immature Granulocyte Absolute 0.02 K/mm3 (0.00-0.00); Immature Granulocyte Percent A 0.3 % (0.0-0.0); Lymphocytes Absolute Auto 2.34 K/mm3 (1.10-4.50); Lymphocytes Percent Auto 36.7 % (18.0-42.0); Mean Corpuscular HGB Conc 32.9 g/dL (32.0-36.0); Mean Corpuscular Hemoglobin 28.9 pg (27.0-31.0); Mean Corpuscular Volume 87.9 fL (78.0-102.0); Mean Platelet Volume 8.9 fl (9.2-11.8); Monocytes Absolute Auto 0.79 K/mm3 (0.10-0.90); Monocytes Percent Auto 12.4 % (2.0-11.0); Neutrophils Absolute Auto 3.1 K/mm3 (1.7-7.2); Neutrophils Percent Auto 48.7 % (50.0-70.0); Platelet Count Result 298 K/mm3 (150-420); Red Blood Count 4.63 M/mm3 (4.20-5.40); Red Cell Distribution Width 13.2 % (11.6-14.4); White Blood Count 6.4 K/mm3 (4.8-10.8)
[2022-03-29 10:13] LABS: Add Urine Microscopic? NO; Appearance Urine Clear (Clear); Bilirubin Urine Negative (Negative); Blood Urine Negative (Negative); Color Urine Light Yellow (Yellow); Glucose Urine UA Negative (Negative); Ketones Urine Negative (Negative); Leukocyte Esterase Ur Negative (Negative); Nitrate Urine Negative (Negative); Protein Urine Negative (Negative); Urobilinogen Urine 0.2 mg/dL (0.2-1.0)
[2022-03-29 10:56] LABS: Alanine Aminotransferase 79 U/L (14-59); Alkaline Phosphatase 209 U/L (46-116); Anion Gap 7 mmol/L (8-16); Aspartate Amino Transferase 43 U/L (15-37); Bilirubin,Total 0.6 mg/dL (0.00-1.00); Blood Urea Nitrogen 18 mg/dL (7-18); Calcium 8.8 mg/dL (8.5-10.1); Carbon Dioxide 30 mmol/L (21-32); Chloride 98 mmol/L (98-108); Cholesterol 206 mg/dL (0-200); Creatine Kinase 92 U/L (26-192); Estimated Glomerular Filt Rate > 60; Free T3 2.51 pg/mL (2.18-3.98); Glucose 92 mg/dL (70-99); HDL Direct 55 mg/dL (40-60); LDL Cholesterol Calculated 125 mg/dL (<130); Osmolality Calculated 281 mOsm/kg (285-295); Potassium 4.4 mmol/L (3.5-5.1); Sodium 135 mmol/L (136-145); Thyroid Stimulating Hormone 1.31 uIU/mL (0.36-3.74); Total Protein 6.8 g/dL (6.4-8.2); Triglycerides 129 mg/dL (0-150)
== END 2022-03-29 09:35 | disposition home or self-care (01) ==
LOC: CHSLAB 09:37
PROVIDERS: PCP Internal Medicine; Visit Provider Internal Medicine
DX: E78.2 Mixed hyperlipidemia (principal); E04.1 Nontoxic single thyroid nodule; I10 Essential (primary) hypertension; R74.8 Abnormal levels of other serum enzymes
CPT/HCPCS: 36415; 80053; 80061; 81003; 82550; 84439; 84443; 84481; 85025

== ENCOUNTER 2022-05-02 09:26 | Outpatient (CLI) | payer MEDICARE, OTHER, SELFPAY ==
--- NOTE | ~2022-05-02 | CT_ITS ---
EXAMINATION: CT abdomen w con DATE: 05/02/2022 11:10 INDICATION: Abnormal liver function tests. TECHNIQUE: Computed tomography (CT) of the abdomen was performed with 100 mL Omnipaque 350 intravenou s contrast. Automated exposure control and iterative reconstruction technique were employed. The dose -length product was 258.01 mGy-cm. COMPARISON: CT abdomen 10/04/2020 FINDINGS: The visualized portions of the lung bases demonstrate mild atelectasis. A calcified right l evan nodule and calcified right hilar lymph nodes are consistent with old granulomatous disease. No pl eural effusion. The heart size is normal. No pericardial effusion. Calcifications in the liver and sp edwina are consistent with old granulomatous disease. 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 Pneumobil ia is noted, which is an expected finding. The adrenal glands and right kidney are normal. There is a n 8 mm cyst in left kidney. There are no dilated loops of bowel. Left ovarian vein is enlarged, consi stent with pelvic venous insufficiency. There are no pathologically enlarged lymph nodes. There is no free intraperitoneal fluid. There is severe thoracic and lumbar spondylosis. IMPRESSION: 1. No etiology for abnormal liver function tests. Reviewed, dictated and finalized at location A. OLE MOLDER
[2022-05-02 10:38] LABS: Estimated Glomerular Filt Rate > 60
== END 2022-05-02 09:27 | disposition home or self-care (01) ==
LOC: CHSIMG 09:28
PROVIDERS: PCP Internal Medicine; Visit Provider Internal Medicine
DX: C25.9 Malignant neoplasm of pancreas, unspecified (principal); R74.01 Elevation of levels of liver transaminase levels
CPT/HCPCS: 74160; Q9967

== ENCOUNTER 2022-05-09 11:02 | Outpatient (RCR) | payer MEDICARE, OTHER, SELFPAY ==
--- NOTE | 2022-05-09 11:40 | PTOPEVAL1 ---
Assessment and note entered by Ken Chaudhry Evaluation Information Assessment Status Evaluation Diagnosis left shoulder pain, partial RCT Onset 01/14/22 Subjective Information Pt. reports that she developed left shoulder pain in January. She recalls no incident. She describes pain on the front of the left shoulder and with reaching across her body. She reports she is right hand dominant. She reports that she will have pain at night when moving the left arm. She reports that her goal is to decrease her left shoulder pain. Reported Pain Level Pain Score 3: Self Report Assessment PT Clinical Summary Pt. is an 82 year old female who enters the clinic with left shoulder pain. Pt. presents with indication of left rotator cuff syndrome on this date. Continued treatment is indicated in order to address left shoulder mobility, left shoulder strength, pain, and postural awareness in order to allow for improved IADL performance. Plan of Care Interventions Electrical Stimulation,Hot Pack/Cold Pack,Manual Therapy,Therapeutic Activities,Therapeutic Exercise,Self-Care/Home Management PT Services Indicated Yes Treatment Frequency and 2x/week x 8 visits Duration These treatments will address the objective and functional deficits as defined above. The patient will be advanced safely and appropriately in order for the patient to progress towards his/her prior level of function. Additional exercises will be introduced and as well as a comprehensive home exercise program upon discharge, if needed, ?to ensure carryover of functional gains achieved in the clinic. This treatment plan has been reviewed and agreement upon by the patient.
== END 2022-06-06 16:58 | disposition home or self-care (01) ==
LOC: CHSPT 11:02
PROVIDERS: PCP Internal Medicine; Visit Provider Internal Medicine
DX: M25.512 Pain in left shoulder (principal)
CPT/HCPCS: 97014; 97110; 97140; 97161; G0283

== ENCOUNTER 2022-06-01 08:55 | Outpatient (CLI) | payer MEDICARE, OTHER, SELFPAY ==
[2022-06-01 09:46] LABS: Alanine Aminotransferase 68 U/L (14-59); Albumin Level 3.8 g/dL (3.4-5.0); Alkaline Phosphatase 182 U/L (46-116); Anion Gap 6 mmol/L (8-16); Aspartate Amino Transferase 51 U/L (15-37); Bilirubin,Total 0.6 mg/dL (0.00-1.00); Blood Urea Nitrogen 15 mg/dL (7-18); Calcium 8.7 mg/dL (8.5-10.1); Carbon Dioxide 31 mmol/L (21-32); Chloride 99 mmol/L (98-108); Estimated Glomerular Filt Rate > 60; Glucose 94 mg/dL (70-99); Osmolality Calculated 282 mOsm/kg (285-295); Potassium 4.1 mmol/L (3.5-5.1); Sodium 136 mmol/L (136-145); Total Protein 6.7 g/dL (6.4-8.2)
== END 2022-06-01 08:56 | disposition home or self-care (01) ==
LOC: CHSLAB 08:58
PROVIDERS: PCP Internal Medicine; Visit Provider Internal Medicine
DX: I10 Essential (primary) hypertension (principal)
CPT/HCPCS: 36415; 80053

== ENCOUNTER 2022-06-20 09:00 | Outpatient (CLI) | payer MEDICARE, SELFPAY ==
[2022-06-20 09:42] LABS: Anion Gap 7 mmol/L (8-16); Blood Urea Nitrogen 16 mg/dL (7-18); Calcium 9.2 mg/dL (8.5-10.1); Carbon Dioxide 31 mmol/L (21-32); Chloride 98 mmol/L (98-108); Estimated Glomerular Filt Rate > 60; Glucose 94 mg/dL (70-99); Osmolality Calculated 283 mOsm/kg (285-295); Potassium 4.6 mmol/L (3.5-5.1); Sodium 136 mmol/L (136-145)
== END 2022-06-20 09:01 | disposition home or self-care (01) ==
LOC: CHSLAB 09:01
PROVIDERS: PCP Internal Medicine; Visit Provider Internal Medicine
DX: I10 Essential (primary) hypertension (principal)
CPT/HCPCS: 36415; 80048

== ENCOUNTER 2022-09-27 17:12 | Outpatient (CLI) | payer MEDICARE, SELFPAY ==
[2022-09-28 13:37] LABS: Appearance Urine Clear (Clear); Color Urine Light Yellow (Yellow)
[2022-09-28 13:38] LABS: Add Urine Microscopic? NO; Bilirubin Urine Negative (Negative); Blood Urine Negative (Negative); Glucose Urine UA Negative (Negative); Ketones Urine Negative (Negative); Leukocyte Esterase Ur Negative LEU/UL (Negative); Nitrate Urine Negative (Negative); Protein Urine Negative (Negative); Specific Grav Ur 1.005 (1.010-1.020)
[2022-09-28 13:39] LABS: Urobilinogen Urine 0.2 mg/dL (0.2-1.0)
[2022-09-28 13:40] LABS: Alanine Aminotransferase 133 U/L (14-59); Anion Gap 9 mmol/L (8-16); Aspartate Amino Transferase 86 U/L (15-37); Bilirubin,Total 0.9 mg/dL (0.00-1.00); Blood Urea Nitrogen 13 mg/dL (7-18); Calcium 9.1 mg/dL (8.5-10.1); Carbon Dioxide 29 mmol/L (21-32); Chloride 95 mmol/L (98-108); Creatine Kinase 140 U/L (26-192); Estimated Glomerular Filt Rate > 60; Glucose 105 mg/dL (70-99); Osmolality Calculated 276 mOsm/kg (285-295); Sodium 133 mmol/L (136-145)
[2022-09-28 13:41] LABS: Albumin Level 4.1 g/dL (3.4-5.0); Alkaline Phosphatase 264 U/L (46-116); Cholesterol 191 mg/dL (0-200); Free T3 2.56 pg/mL (2.18-3.98); Free T4 Free Thyroxine 1.16 ng/dL (0.76-1.46); HDL Direct 61 mg/dL (40-60); LDL Cholesterol Calculated 109 mg/dL (<130); Thyroid Stimulating Hormone 1.34 uIU/mL (0.36-3.74); Total Protein 6.9 g/dL (6.4-8.2); Triglycerides 103 mg/dL (0-150)
[2022-09-28 14:08] LABS: Basophils Absolute Auto 0.03 K/mm3 (0.00-0.10); Basophils Percent Auto 0.2 % (0.0-1.0); Eosinophils Percent Auto 0.8 % (1.0-6.0); Hematocrit 41.5 % (35.0-42.0); Hemoglobin 13.9 g/dL (11.7-13.8); Immature Granulocyte Absolute 0.04 K/mm3 (0.00-0.00); Immature Granulocyte Percent A 0.3 % (0.0-0.0); Lymphocytes Absolute Auto 1.25 K/mm3 (1.10-4.50); Lymphocytes Percent Auto 10.2 % (18.0-42.0); Mean Corpuscular HGB Conc 33.5 g/dL (32.0-36.0); Mean Corpuscular Hemoglobin 28.9 pg (27.0-31.0); Mean Corpuscular Volume 86.3 fL (78.0-102.0); Mean Platelet Volume 9.3 fl (9.2-11.8); Monocytes Absolute Auto 1.02 K/mm3 (0.10-0.90); Monocytes Percent Auto 8.3 % (2.0-11.0); Neutrophils Absolute Auto 9.9 K/mm3 (1.7-7.2); Neutrophils Percent Auto 80.2 % (50.0-70.0); Platelet Count Result 292 K/mm3 (150-420); Red Blood Count 4.81 M/mm3 (4.20-5.40); Red Cell Distribution Width 13.3 % (11.6-14.4); White Blood Count 12.3 K/mm3 (4.8-10.8)
[2022-10-03 23:53] LABS: Vitamin D 25 Hydroxy 51 ng/mL (30-100)
== END 2022-09-27 17:13 | disposition home or self-care (01) ==
LOC: CHSLAB 17:14
PROVIDERS: PCP Internal Medicine; Visit Provider Internal Medicine
DX: E78.2 Mixed hyperlipidemia (principal); I10 Essential (primary) hypertension; N39.0 Urinary tract infection, site not specified; M81.0 Age-related osteoporosis without current pathological fracture
CPT/HCPCS: 36415; 80053; 80061; 81003; 82306; 82550; 84439; 84443; 84481; 85025

== ENCOUNTER 2022-10-20 09:20 | Outpatient (CLI) | payer MEDICARE, OTHER, SELFPAY ==
--- NOTE | ~2022-10-20 | US_ITS ---
EXAMINATION: US carotid duplex BI DATE: 10/20/2022 09:47 INDICATION: Carotid bruit TECHNIQUE: Grayscale, color Doppler, and pulsed Doppler images of the cervical carotid arteries were obtained. The degree of vessel stenosis is placed in one of the following categories: normal, <50%, 5 0-69%, >=70% but less than near-occlusion, near-occlusion, or total occlusion. Note that percent sten osis relative to normal distal artery lumen diameter is indirectly measured from velocity measurement s as described by Raj, et al. Radiology 2003; 229:340-346. COMPARISON: None. FINDINGS: RIGHT: The right common carotid artery (CCA) peak systolic velocity (PSV) is 71 cm/s. The right internal car otid artery (ICA) PSV is 130 cm/s. The right ICA end-diastolic velocity (EDV) is 30 cm/s. The right I CA/CCA PSV ratio is 1.8. Grayscale and color Doppler images yield an estimate of 50-69% diameter redu ction from plaque in the ICA. The external carotid artery (ECA) PSV is 71 cm/s. There is antegrade fl ow in the right vertebral artery. LEFT: The left CCA PSV is 94 cm/s. The left ICA PSV is 88 cm/s. The left ICA EDV is 22 cm/s. The left ICA/C CA PSV ratio is 0.9. Grayscale and color Doppler images yield an estimate of <50% diameter reduction from plaque in the ICA. The ECA PSV is 70 cm/s. There is antegrade flow in the left vertebral artery. IMPRESSION: 1. 50-69% stenosis in the right internal carotid artery. 2. <50% stenosis in the left internal carotid artery. Reviewed, dictated and finalized at location B.
== END 2022-10-20 09:21 | disposition home or self-care (01) ==
LOC: CHSIMG 09:20
PROVIDERS: PCP Internal Medicine; Visit Provider Internal Medicine
DX: R06.00 Dyspnea, unspecified (principal); R09.89 Other specified symptoms and signs involving the circulatory and respiratory systems; I65.23 Occlusion and stenosis of bilateral carotid arteries
CPT/HCPCS: 93880

== ENCOUNTER 2022-10-26 08:20 | Outpatient (CLI) | payer MEDICARE, OTHER, SELFPAY ==
--- NOTE | ~2022-10-26 | MR_ITS ---
EXAMINATION: MR MRCP wo/w con/w 3D wo ind DATE: 10/26/2022 12:18 INDICATION: Abdominal bloating, elevated liver enzymes TECHNIQUE: Magnetic resonance imaging (MRI) of the abdomen was performed without and with intravenous contrast. Sequences included coronal T2-weighted SS-FSE ARC, coronal T2-weighted FS SS-FSE, coronal T2-weighted 2D FS FIESTA, Water:Coronal LAVA-Flex, sagittal T2-weighted SS-FSE ARC, axial SSFSE ARC, axial 3D DualEcho, axial DWI B=600, axial T1-weighted LAVA, FAT:Coronal LAVA-Flex, and coronal in and opposed phase LAVA-Flex. Thick-slab T2-weighted FRFSE-XL images were obtained for magnetic resonance cholangiopancreatography (MRCP). Maximum intensity projection 3-D reconstructions of the volumetric data were created by the technologist. Postcontrast sequences included a time course of axial T1-weig hted LAVA, FAT:Coronal LAVA-Flex, coronal in and opposed phase LAVA-Flex, and Water:Coronal LAVA-Flex . COMPARISON: CT, 05/02/2022 CONTRAST: Multihance, 16 cc FINDINGS: ABDOMEN MRI: There are changes of cholecystectomy. The liver, spleen, and adrenal glands are normal. 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 There is any millimeters cyst in left kidney. The right kidne y is unremarkable. There are no pathologically enlarged abdominal lymph nodes. No dilated loops of gladys wel are evident. No abnormal enhancement is present after contrast administration. ABDOMEN MRCP: Respiratory motion artifact somewhat limits the examination. No biliary stones or stric ture are identified. The visualized portions of the pancreatic duct appear normal. IMPRESSION: 1. Expected changes of Whipple procedure. Unremarkable MRCP. Reviewed, dictated and finalized at location L.
== END 2022-10-26 08:21 | disposition home or self-care (01) ==
LOC: CHSIMG 08:21
PROVIDERS: PCP Internal Medicine; Visit Provider Internal Medicine
DX: R14.0 Abdominal distension (gaseous) (principal); R74.01 Elevation of levels of liver transaminase levels; Z90.49 Acquired absence of other specified parts of digestive tract
CPT/HCPCS: 74181; 74183; 76376; A9577

== ENCOUNTER 2022-11-20 13:47 | Outpatient (CLI) | payer MEDICARE, OTHER, SELFPAY ==
--- NOTE | 2022-11-20 13:53 | ECHO_ITS ---
Patient Info Name: Julia Comer Age: 82 years : 1940 Gender: Female Ht: 64 in Wt: 164 lbs BSA: 1.85 m2 HR: 77 bpm BP: 164 / 85 mmHg Heart Rhythm: Sinus Rhythm Technical Quality: Good Exam Date: 11/20/2022 1:41 PM Exam Location: [facility] Patient Status: Outpatient Admit Date: 11/20/2022 Staff Ordering Physician: Toni Tracey MD Fur Cleaner: Moi Najera RDCS Attending Provider: Toni Tracey MD Referring Physician: Alexy NOEL; Exam Type: CA echo doppler color flow Study Info Indications - dyspnea , aortic murmur Complete two-dimensional, color flow and Doppler transthoracic echocardiogram is performed. History/Risk Factors Hypertension: Yes Dyslipidemia: No Congenital Heart Disease (CHD): No Peripheral Arterial Disease (PAD): No Myocardial Infarction (WV): No Chronic Lung Disease: No Obesity: Yes Renal Disease: No Coronary Artery Disease (CAD) No Congestive Heart Failure (CHF): No Cardiomyopathy/LV Systolic Dysfunction: No Diabetes Mellitus: No COPD: No Tobacco Use: Never Cerebrovascular Disease: No Family History: Diabetes Mellitus, Coronary Artery Disease Deep Vein Thrombosis (DVT): None Dialysis: None Frailty Scale (CSHA): 2: Well Cardiac Arrest: No Summary 1. Complete two-dimensional, color flow and Doppler transthoracic echocardiogram is performed. 2. Left ventricular chamber dimension is normal. 3. Left ventricular systolic function is normal, estimated at 65-70%. 4. The left ventricular diastolic function is grade I diastolic dysfunction. 5. E/e' 7 is not elevated. 6. There is mild mitral valve regurgitation. 7. There is mild tricuspid valve regurgitation. 8. No pulmonary hypertension, estimated pulmonary arterial systolic pressure is 33 mmHg. Left Ventricle E/e' 7 is not elevated. Left ventricular chamber dimension is normal. Left ventricular systolic function is normal, estimated at 65-70%. The left ventricular diastolic function is grade I diastolic dysfunction. Right Ventricle Right ventricular systolic function is normal and with normal TAPSE 2.6 cm. Right ventricular chamber dimension is normal. Left Atria Left atrial chamber dimension is normal. Right Atria Right atrial chamber dimension is normal. Aortic Valve The aortic valve is trileaflet. There is no aortic valve stenosis. There is no aortic valve regurgitation. Pulmonic Valve There is no pulmonic regurgitation. Mitral Valve There is no mitral valve stenosis. There is mild mitral valve regurgitation. Tricuspid Valve There is mild tricuspid valve regurgitation. No pulmonary hypertension, estimated pulmonary arterial systolic pressure is 33 mmHg. Pericardium/Pleural There is no pericardial effusion. Inferior Vena Cava Normal inferior vena cava with >50% collapse upon inspiration consistent with normal right atrial pressure, 5 mmHg. Aorta The aortic root size at the sinus of Valsalva is normal. Left Ventricular Outflow Tract Name Value Normal LVOT 2D LVOT Diameter 1.9 cm LVOT Doppler LVOT Peak Velocity 164 cm/s LVOT Peak Gradient 8 mmHg
== END 2022-11-20 13:48 | disposition home or self-care (01) ==
LOC: CHSIMG 13:49
PROVIDERS: PCP Internal Medicine; Visit Provider Internal Medicine
DX: I35.8 Other nonrheumatic aortic valve disorders (principal); I07.1 Rheumatic tricuspid insufficiency; I34.0 Nonrheumatic mitral (valve) insufficiency; R06.00 Dyspnea, unspecified; R93.1 Abnormal findings on diagnostic imaging of heart and coronary circulation; I50.30 Unspecified diastolic (congestive) heart failure
CPT/HCPCS: 93306

== ENCOUNTER 2022-11-27 07:31 | Outpatient (CLI) | payer MEDICARE, OTHER, SELFPAY ==
--- NOTE | ~2022-11-27 | DEXA_ITS ---
Bone Density Report Name: RHINA FERREIRA Age: 82 Sex: Female Ethnicity: White Date of : 1940 Indication: postmenopausal; screening for osteoporosis; height loss; prior fracture; cancer; Referring Provider: Toni Tracey Study: Bone densitometry was performed. Exam Date: November 27, 2022 Accession number: [id number] Bone Density: Region BMD T-score Z-score Classification AP Spine(L1, L2, L3) 1.088 0.6 3.3 Normal Femoral Neck (Left) 0.672 -1.6 0.7 Osteopenia Total Hip (Left) 0.937 0.0 2.1 Normal Femoral Neck (Right) 0.633 -1.9 0.4 Osteopenia Total Hip (Right) 0.936 -0.1 2.1 Normal Femoral Neck Mean 0.652 -1.8 0.6 Osteopenia Total Hip Mean 0.936 0.0 2.1 Normal World Health Organization criteria for BMD impression classify patients as: Normal (T-score at or above -1.0), Osteopenia (T-score between -1.0 and -2.5), or Osteoporosis (T-score at or below -2.5). 10-year Fracture Risk: FRAX not reported because: Treated for osteoporosis Clinical Information Provided by Patient: Has had a low trauma fracture Is being treated for osteoporosis Has used the following medications: Fosamax (i.e. alendronate), Reclast (i.e. zoledronate), Vitamin D, Calcium Has the following medical conditions: Cancer Patient maximum height was 65 Menopause Age: 56 Drinks caffeinated beverages Onset of menses at age 13 Number of children 2 Impression: The patient has low bone mass, based on the Right Femoral Neck T-score. The patient has risk factors, including: previous fracture. Discussion: It is important to ask patients whether they are taking their medications and to encourage continued and appropriate compliance with their osteoporosis therapies to reduce fracture risk. It is also important to review their risk factors and encourage appropriate calcium and vitamin D intakes, exercise, fall prevention and other lifestyle measures. Follow-Up: Consider a repeat BMD and Vertebral Fracture Assessment (VFA) exam in 2 years or sooner if medically necessary, to reassess this patient's status. Reported by: Dr. Dawood Dickson on 11/27/2022 2:48:00 PM. Reviewed, dictated and finalized at location ABernie DEWITT
--- NOTE | 2022-11-27 07:42 | EST_ITS ---
Patient Info Name: Julia Comer Age: 82 years : 1940 Gender: Female Ht: 64 in Wt: 164 lbs BSA: 1.85 m2 Technical Quality: Good Exam Date: 11/27/2022 9:02 AM Exam Location: [facility] Patient Status: Outpatient Admit Date: 11/27/2022 Staff Ordering Physician: Toni Tracey MD Attending Provider: Bryce Waldrop NMAA Exam Type: CA stress rudy w NM Study Info A regadenoson stress test was performed. History/Risk Factors Hypertension: Yes Dyslipidemia: No Congenital Heart Disease (CHD): No Peripheral Arterial Disease (PAD): No Myocardial Infarction (MT): No Chronic Lung Disease: No Obesity: Yes Renal Disease: No Coronary Artery Disease (CAD) No Congestive Heart Failure (CHF): No Cardiomyopathy/LV Systolic Dysfunction: No Diabetes Mellitus: No COPD: No Tobacco Use: Never Cerebrovascular Disease: No Family History: Diabetes Mellitus, Coronary Artery Disease Deep Vein Thrombosis (DVT): None Dialysis: None Frailty Scale (CSHA): 2: Well Cardiac Arrest: No Summary 1. 1. Negative lexiscan stress test for ischemic ST changes by ECG criteria. 2. 2. Baseline hypertension. 3. 3. Nuclear scan to follow and will be reported separately. Please correlate with it. Protocol: LEXISCAN Stress ECG Details Stage: REST Duration (min): 0 min : 38 sec HR (bpm): 71 SBP (mmHg): --- DBP (mmHg): --- Stage: REST Duration (min): 0 min : 51 sec HR (bpm): 71 SBP (mmHg): --- DBP (mmHg): --- Stage: REST Duration (min): 1 min : 56 sec HR (bpm): 71 SBP (mmHg): 142 DBP (mmHg): 73 Stage: REST Duration (min): 16 min : 33 sec HR (bpm): 72 SBP (mmHg): 142 DBP (mmHg): 73 Stage: STAGE 1 Duration (min): 0 min : 20 sec HR (bpm): 71 SBP (mmHg): 142 DBP (mmHg): 73 Stage: RECOVERY Duration (min): 0 min : 39 sec HR (bpm): 79 SBP (mmHg): 142 DBP (mmHg): 73 Stage: RECOVERY Duration (min): 1 min : 39 sec HR (bpm): 83 SBP (mmHg): 142 DBP (mmHg): 73 Stage: RECOVERY Duration (min): 2 min : 39 sec HR (bpm): 89 SBP (mmHg): 148 DBP (mmHg): 74 Stage: RECOVERY Duration (min): 3 min : 39 sec HR (bpm): 84 SBP (mmHg): 148 DBP (mmHg): 74 Stage: RECOVERY Duration (min): 4 min : 39 sec HR (bpm): 82 SBP (mmHg): 133 DBP (mmHg): 65 Stage: RECOVERY Duration (min): 5 min : 39 sec HR (bpm): 81 SBP (mmHg): 133 DBP (mmHg): 65 Stage: RECOVERY Duration (min): 6 min : 6 sec HR (bpm): 80 SBP (mmHg): 141 DBP (mmHg): 68 Rest HR: 72 bpm Peak HR: 89 bpm Rest Sys BP: 142 mmHg Peak Sys BP: 148 mmHg Max Pred HR: 140 bpm % Max Pred HR: 64 % Target HR: 119 bpm Max RPP: 13,172 bpm*mmHg BP Response: Normal blood pressure response Termination Reason: Completed Protocol Cardiac Symptoms: None Total Time: 0 min : 20 sec Rest Gleason BP: 73 mmHg Peak Gleason BP: 74 mmHg Total Dose: 0.4 mg Resting ECG Normal sinus rhythm. Stress ECG No abnormal ST/T changes. Arrhythmias No arr
--- NOTE | 2022-11-27 13:58 | WPDCARIOSTRE ---
Nuclear Stress Test INDICATIONS Indications: DURHAM PROCEDURE Procedure Performed: Myocardial Perf Spect-Multi Procedure: Patient underwent a lexiscan stress test and immediately was injected with 25.9 mCi of cardiolyte. Multiple tomographic images were obtained. These are of good quality. There is evidence of small size, mild anterior perfusion defect with stress imaging. A separate resting images were obtained after patient was injected with 8.4 mCi of cardiolyte. Multiple tomographic images were obtained. These are of good quality. There is evidence of small size, mild anterior perfusion defect with rest imaging. CONCLUSION Conclusion: 1. Myocardial perfusion imaging demonstrating a fixed small size anterior defect which is suggestive of breast attenuation artifact. 2. No evidence of reversible ischemia. 3. Left ventriculogram demonstrates normal measured ejection fractioin of 72% with no wall motion abnormalities. 4. TID score 1.11 is normal.
== END 2022-11-27 07:32 | disposition home or self-care (01) ==
LOC: CHSCARD 07:35
PROVIDERS: PCP Internal Medicine; Visit Provider Internal Medicine
DX: R06.09 Other forms of dyspnea (principal); Z78.0 Asymptomatic menopausal state; I10 Essential (primary) hypertension; M85.89 Other specified disorders of bone density and structure, multiple sites
CPT/HCPCS: 77080; 78452; 93017; A9502; J2785

== ENCOUNTER 2022-12-13 09:49 | Outpatient (CLI) | payer MEDICARE, OTHER, SELFPAY ==
[2022-12-13 09:56] VITALS: BMI 28.3
[2022-12-13] MEDS: DENOSUMAB 60 MG/ML SYRINGE SUB-Q (10:04)
[2022-12-13 10:20] VITALS: BP 131/70; PULSE 72; RESP 14; TEMP 36.6; O2SAT 98
--- NOTE | 2022-12-13 10:21 | PC.NURSE ---
Patient here for Prolia injection. Education given. All concerns answered. Injection administered. SEE MAR. Tolerated well. Safe exit of hospital per amb/self. Will return in 6 months for next Prolia injection.
== END 2022-12-13 09:50 | disposition home or self-care (01) ==
LOC: CHSTREATRM 09:52
PROVIDERS: PCP Internal Medicine; Visit Provider Internal Medicine
DX: M81.0 Age-related osteoporosis without current pathological fracture (principal)
CPT/HCPCS: 96372; J0897

== ENCOUNTER 2023-01-24 09:58 | Outpatient (CLI) | payer MEDICARE, OTHER, SELFPAY ==
[2023-01-24 11:40] LABS: Ferritin 112 ng/mL (8-252); Iron 64 ug/dL (50-170)
[2023-01-27 10:58] LABS: Hepatitis C Virus Antibody Nonreactive
[2023-01-29 12:44] LABS: Actin Antibody (IgG) <20 U (<20)
== END 2023-01-24 09:59 | disposition home or self-care (01) ==
LOC: CHSLAB 10:02
PROVIDERS: PCP Internal Medicine; Visit Provider Internal Medicine
DX: R94.5 Abnormal results of liver function studies (principal); D64.9 Anemia, unspecified
CPT/HCPCS: 36415; 82728; 83516; 83540; 86038; 86381; 86803

== ENCOUNTER 2023-02-08 15:16 | Outpatient (CLI) | payer MEDICARE, OTHER, SELFPAY ==
--- NOTE | ~2023-02-08 | XR_ITS ---
EXAMINATION: XR chest 2V 02/08/2023 15:35 INDICATION: Periodic bouts of shortness of breath PROCEDURE: PA and lateral views of the chest COMPARISON: 10/05/2020 FINDINGS: The lungs are clear. The cardiomediastinal silhouette is within normal limits. There are no pleural effusions. There is no pneumothorax suspected. IMPRESSION: 1: NO ACUTE CARDIOPULMONARY DISEASE. Reviewed, dictated and finalized at location L.
== END 2023-02-08 15:17 | disposition home or self-care (01) ==
LOC: CHSIMG 15:19
PROVIDERS: PCP Internal Medicine; Visit Provider Internal Medicine
DX: R06.00 Dyspnea, unspecified (principal)
CPT/HCPCS: 71046

== ENCOUNTER 2023-02-20 09:47 | Outpatient (CLI) | payer MEDICARE, OTHER, SELFPAY | END 2023-02-20 09:48 | disposition home or self-care (01) | LOC: CHSCARD 09:48 | PROVIDERS: PCP Internal Medicine; Visit Provider Internal Medicine | DX: R06.00 Dyspnea, unspecified (principal); R94.2 Abnormal results of pulmonary function studies | CPT/HCPCS: 94060; 94726; 94729; 95012 ==

== ENCOUNTER 2023-04-03 09:02 | Outpatient (CLI) | payer MEDICARE, SELFPAY ==
[2023-04-03 11:29] LABS: Blood Urea Nitrogen 15 mg/dL (7-18); Calcium 9.2 mg/dL (8.5-10.1); Carbon Dioxide 32 mmol/L (21-32); Estimated Glomerular Filt Rate > 60; Glucose 98 mg/dL (70-99)
[2023-04-03 11:36] LABS: Anion Gap 6 mmol/L (8-16); Chloride 95 mmol/L (98-108); Osmolality Calculated 276 mOsm/kg (285-295); Potassium 4.3 mmol/L (3.5-5.1); Sodium 133 mmol/L (136-145)
== END 2023-04-03 09:03 | disposition home or self-care (01) ==
LOC: CHSLAB 09:05
PROVIDERS: PCP Internal Medicine; Visit Provider Internal Medicine
DX: I10 Essential (primary) hypertension (principal)
CPT/HCPCS: 36415; 80048

== ENCOUNTER 2023-07-24 08:48 | Outpatient (CLI) | payer MEDICARE, OTHER, SELFPAY ==
--- NOTE | ~2023-07-24 | MM_ITS ---
EXAMINATION: MM screening ariela BI w louis HISTORY: Screening mammogram TECHNIQUE: Craniocaudal and mediolateral oblique 3-D tomosynthesis images were obtained and synthetic 2-D images were generated. CAD analysis was submitted and interpreted. COMPARISON: 01/26/2022, 11/16/2020 bilateral screening mammogram examinations BREAST PARENCHYMAL COMPOSITION: There are scattered areas of fibroglandular density. FINDINGS: There is no evidence of suspicious mass, calcification, or architectural distortion to sugg est malignancy in either breast. There has been no suspicious interval change. IMPRESSION: 1. No mammographic evidence of malignancy. 2. Recommend routine screening mammography in one year. BI-RADS Category 1: Negative Reviewed, dictated and finalized at location A.
[2023-07-24 09:37] VITALS: BP 178/87; PULSE 80; RESP 16; TEMP 36.1; O2SAT 98
[2023-07-24] MEDS: DENOSUMAB 60 MG/ML SYRINGE SUB-Q (09:39)
--- NOTE | 2023-07-24 09:52 | PC.NURSE ---
0936 Patient ambulated to floor without difficulty 0944 Patient was given injection in left upper outer arm without difficulty. Left floor ambulating without difficulty.
[2023-07-24 10:18] LABS: Alanine Aminotransferase 68 U/L (14-59); Alkaline Phosphatase 196 U/L (46-116); Anion Gap 10 mmol/L (4-12); Aspartate Amino Transferase 42 U/L (15-37); Bilirubin,Total 0.7 mg/dL (0.00-1.00); Blood Urea Nitrogen 16 mg/dL (7-18); Calcium 8.7 mg/dL (8.5-10.1); Carbon Dioxide 28 mmol/L (21-32); Chloride 97 mmol/L (98-108); Estimated Glomerular Filt Rate > 60; Glucose 96 mg/dL (70-99); Osmolality Calculated 281 mOsm/kg (285-295); Potassium 3.9 mmol/L (3.5-5.1); Sodium 135 mmol/L (136-145); Total Protein 6.8 g/dL (6.4-8.2)
== END 2023-07-24 08:49 | disposition home or self-care (01) ==
PROVIDERS: PCP Internal Medicine; Visit Provider Internal Medicine
DX: M81.0 Age-related osteoporosis without current pathological fracture (principal); I10 Essential (primary) hypertension; Z12.31 Encounter for screening mammogram for malignant neoplasm of breast
CPT/HCPCS: 36415; 77063; 77067; 80053; J0897

== ENCOUNTER 2023-08-02 13:27 | Outpatient (CLI) | payer MEDICARE, OTHER, SELFPAY ==
--- NOTE | ~2023-08-02 | US_ITS ---
EXAMINATION: US carotid duplex BI DATE: 08/02/2023 13:55 INDICATION: Follow-up carotid stenosis TECHNIQUE: Grayscale, color Doppler, and pulsed Doppler images of the cervical carotid arteries were obtained. The degree of vessel stenosis is placed in one of the following categories: normal, <50%, 5 0-69%, >=70% but less than near-occlusion, near-occlusion, or total occlusion. Note that percent sten osis relative to normal distal artery lumen diameter is indirectly measured from velocity measurement s as described by Raj, et al. Radiology 2003; 229:340-346. Notes: Normal: Peak systolic velocity <125 centimeters/sec and no plaque <50%. Peak systolic velocity <125 ( EDV <40; ICA/CCA PSV ratio <2.0; used these factors only a tandem lesions or low cardiac output or co ntralateral disease) 50-69 %: PSV 125-230 (EDV 40-100; ratio 2-4) >= 70% but less than near occlusion: PSV greater than 230 (EDV > 100; ratio> 4.0) Near Occlusion: PSV that is variable; markedly narrowed lumen Occlusion: Absent flow on color/spectral Doppler and no lumen on donaldson scale. COMPARISON: None. FINDINGS: RIGHT: The right common carotid artery (CCA) peak systolic velocity (PSV) is 94 cm/s. The right internal car otid artery (ICA) PSV is 112 cm/s. The right ICA end-diastolic velocity (EDV) is 33 cm/s. The right I CA/CCA PSV ratio is 1.2. The external carotid artery (ECA) PSV is 82 cm/s. There is antegrade flow in the right vertebral artery. LEFT: The left CCA PSV is 114 cm/s. The left ICA PSV is 79 cm/s. The left ICA EDV is 27 cm/s. The left ICA/ CCA PSV ratio is 0.7. The ECA PSV is 90 cm/s. There is antegrade flow in the left vertebral artery. IMPRESSION: 1. Less than 50% stenosis in the right internal carotid artery by sonographic criteria. 2. Less than 50% stenosis in the left internal carotid artery by sonographic criteria. Reviewed, dictated and finalized at location B. IMPRESSION: 1. Less than 50% stenosis in the right internal carotid artery by sonographic c armand. 2. Less than 50% stenosis in the left internal carotid artery by sonographic cr liana.
== END 2023-08-02 13:28 | disposition home or self-care (01) ==
LOC: CHSIMG 13:29
PROVIDERS: PCP Internal Medicine; Visit Provider Internal Medicine
DX: I65.23 Occlusion and stenosis of bilateral carotid arteries (principal)
CPT/HCPCS: 93880

== ENCOUNTER 2023-09-18 08:26 | Outpatient (CLI) | payer MEDICARE, SELFPAY ==
[2023-09-18 08:37] LABS: Basophils Absolute Auto 0.03 K/mm3 (0.00-0.10); Basophils Percent Auto 0.5 % (0.0-1.0); Eosinophils Absolute Auto 0.12 K/mm3 (0.02-0.50); Eosinophils Percent Auto 1.9 % (1.0-6.0); Hematocrit 39.5 % (35.0-42.0); Immature Granulocyte Absolute 0.02 K/mm3 (0.00-0.00); Immature Granulocyte Percent A 0.3 % (0.0-0.0); Lymphocytes Absolute Auto 2.65 K/mm3 (1.10-4.50); Lymphocytes Percent Auto 42.9 % (18.0-42.0); Mean Corpuscular HGB Conc 32.9 g/dL (32-36); Mean Corpuscular Hemoglobin 29.2 pg (27.0-31.0); Mean Corpuscular Volume 88.8 fL (78.0-102.0); Mean Platelet Volume 8.7 fl (9.2-11.8); Monocytes Absolute Auto 0.53 K/mm3 (0.10-0.90); Monocytes Percent Auto 8.6 % (2.0-11.0); Neutrophils Absolute Auto 2.82 K/mm3 (1.70-7.20); Neutrophils Percent Auto 45.8 % (50.0-70.0); Platelet Count Result 291 K/mm3 (150-420); Red Blood Count 4.45 M/mm3 (4.20-5.40); White Blood Count 6.2 K/mm3 (4.8-10.8)
[2023-09-18 08:44] LABS: Appearance Urine Clear (Clear); Bilirubin Urine Negative (Negative); Blood Urine Negative (Negative); Color Urine Light Yellow (Yellow); Glucose Urine UA Negative (Negative); Ketones Urine Negative (Negative); Leukocyte Esterase Ur Negative (Negative); Nitrate Urine Negative (Negative); Protein Urine Negative (Negative); Urobilinogen Urine 0.2 mg/dL (0.2-1.0); pH Urine 6.5 (5.0-8.0)
[2023-09-18 08:47] LABS: Add Urine Microscopic? NO
[2023-09-18 09:12] LABS: Alanine Aminotransferase 63 U/L (14-59); Albumin Level 3.9 g/dL (3.4-5.0); Alkaline Phosphatase 178 U/L (46-116); Anion Gap 7 mmol/L (4-12); Aspartate Amino Transferase 42 U/L (15-37); Bilirubin,Total 0.7 mg/dL (0.00-1.00); Blood Urea Nitrogen 11 mg/dL (7-18); Calcium 8.6 mg/dL (8.5-10.1); Carbon Dioxide 32 mmol/L (21-32); Chloride 95 mmol/L (98-108); Cholesterol 136 mg/dL (0-200); Creatine Kinase 194 U/L (26-192); Estimated Glomerular Filt Rate > 60; Free T3 2.84 pg/mL (2.18-3.98); Free T4 Free Thyroxine 1.06 ng/dL (0.76-1.46); Glucose 97 mg/dL (70-99); HDL Direct 52 mg/dL (40-60); LDL Cholesterol Calculated 55 mg/dL (<130); Osmolality Calculated 277 mOsm/kg (285-295); Potassium 3.7 mmol/L (3.5-5.1); Sodium 134 mmol/L (136-145); Thyroid Stimulating Hormone 1.65 uIU/mL (0.36-3.74); Total Protein 6.8 g/dL (6.4-8.2); Triglycerides 147 mg/dL (0-150)
== END 2023-09-18 08:27 | disposition home or self-care (01) ==
LOC: CHSLAB 08:27
PROVIDERS: PCP Internal Medicine; Visit Provider Internal Medicine
DX: R74.8 Abnormal levels of other serum enzymes (principal); I10 Essential (primary) hypertension; E04.1 Nontoxic single thyroid nodule; M81.0 Age-related osteoporosis without current pathological fracture; E78.2 Mixed hyperlipidemia; E87.1 Hypo-osmolality and hyponatremia
CPT/HCPCS: 36415; 80053; 80061; 81003; 82550; 84439; 84443; 84481; 85025

== ENCOUNTER 2023-11-06 14:05 | Outpatient (CLI) | payer MEDICARE, OTHER, SELFPAY ==
--- NOTE | ~2023-11-06 | XR_ITS ---
EXAM: XR hip LT min 2V DATE: 11/06/2023 14:30 HISTORY: acute LT hip pain X 1 week . COMPARISON: 05/23/2021. FINDINGS: Decreased mineralization. No fracture or dislocation. No lytic or blastic lesion. Mild lef t hip osteoarthritis. Mild scattered pelvic enthesopathy. No erosion or periosteal change. Soft tissu es within normal limits. IMPRESSION: No acute osseous finding in the left hip. Reviewed, dictated and finalized at location K.
== END 2023-11-06 14:06 | disposition home or self-care (01) ==
LOC: CHSIMG 14:07
PROVIDERS: PCP Internal Medicine; Visit Provider Internal Medicine
DX: M25.552 Pain in left hip (principal)
CPT/HCPCS: 73502

== ENCOUNTER 2023-11-08 09:18 | Outpatient (CLI) | payer MEDICARE, OTHER, SELFPAY ==
--- NOTE | ~2023-11-08 | MR_ITS ---
EXAMINATION: MR hip LT wo con DATE: 11/08/2023 10:02 INDICATION: Left hip pain TECHNIQUE: Magnetic resonance imaging (MRI) of the left hip was performed without intravenous contra st. Sequences included full-field axial PD-weighted FS FSE and T1-weighted FSE, coronal of the pelvis with PD-weighted FS FSE, small field of view of the left hip with axial PD-weighted FS FSE, sagitta l PD-weighted FS FSE and coronal PD weighted FS FSE. COMPARISON: None FINDINGS: Bones/labrum/cartilage: Alignment is normal. No fracture, avascular necrosis or pathologic marrow replacing process. Again s een is a fissure at the chondral labral junction at the superolateral left acetabular labrum. Mild le ft hip osteoarthritis with mild partial-thickness loss at the posterior joint space without degenerat elsi subchondral changes. Fluid: Symmetric physiologic amount of fluid within both hip joints. Again seen is mild increased fluid sign al overlying the bilateral greater trochanters consistent with mild trochanteric bursitis. Soft tissues: Normal and symmetric muscle bulk and signal in the pelvis and visualized proximal thighs. 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 Mild tendinopathy without tear at the bilateral distal radius medius tendons. Small low signal intensity enthesopathic ossicle at the distal left gluteus medius tendon. The bilateral iliopsoas, remaining gluteal and proximal hamstring tendons are normal. 1.7 cm hypointense fibroid at the uterine fundus. Limited evaluation of visceral organs of the pelvis is otherwise unremarkable. No pathologically enlarged pelvic/inguinal lymphaden opathy. IMPRESSION: 1. No significant interval change in mild left hip osteoarthritis with tear at the superolateral teodoro dral labral junction. 2. Mild bilateral trochanteric bursitis mild bilateral diffuse medius tendinopathy without tear. 3. 1.7 cm uterine fibroid. Reviewed, dictated and finalized at location A. IMPRESSION: 1. No significant interval change in mild left hip osteoarthritis with tear at the superolateral chondral labral junction. 2. Mild bilateral trochanteric bursitis mild bilateral diffuse medius tendinopa thy without tear. 3. 1.7 cm uterine fibroid.
== END 2023-11-08 09:19 | disposition home or self-care (01) ==
LOC: CHSIMG 09:20
PROVIDERS: PCP Internal Medicine; Visit Provider Internal Medicine
DX: M25.552 Pain in left hip (principal); M16.12 Unilateral primary osteoarthritis, left hip; S73.192A Other sprain of left hip, initial encounter; M71.552 Other bursitis, not elsewhere classified, left hip; D25.9 Leiomyoma of uterus, unspecified
CPT/HCPCS: 73721

== ENCOUNTER 2024-01-05 09:44 | Outpatient (CLI) | payer MEDICARE, OTHER, SELFPAY ==
--- NOTE | ~2024-01-05 | MR_ITS ---
EXAMINATION: MR lumbar spine wo con DATE: 01/05/2024 10:47 INDICATION: Lumbar radiculopathy. TECHNIQUE: Magnetic resonance imaging (MRI) of the lumbar spine was performed without intravenous con trast. Sequences included sagittal T2-weighted FSE, sagittal T2-weighted FS FSE, sagittal T1-weighted FSE, and axial T2-weighted FSE. COMPARISON: None FINDINGS: There is 5 degrees levocurvature of lumbar spine. Vertebral body heights are normal. There is moderately decreased disc height at T12-L1, severely decreased disc height from L1-L2 through L3-L 4, and mildly decreased disc height at L4-L5. The distal spinal cord signal intensity is normal. The conus medullaris is at L1. The following disc levels are specifically discussed: L1-L2: The disc is bulging. There is mild bilateral facet joint osteoarthritis. There is mild right a nd moderate left neural foraminal stenosis. There is mild central canal stenosis. L2-L3: The disc is bulging and has irregular fissure. There is mild bilateral facet joint osteoarthri tis. There is moderate bilateral neural foraminal stenosis. There is mild central canal stenosis. L3-L4: The disc is bulging with superimposed left central extrusion. There is moderate bilateral face t joint osteoarthritis. There is moderate bilateral neural foraminal stenosis. There is mild central canal stenosis. L4-L5: The disc is bulging and has an annular fissure. There is moderate bilateral facet joint osteoa rthritis. There is moderate bilateral neural foraminal stenosis. There is moderate central canal sten osis. L5-S1: The disc is bulging. There is severe bilateral facet joint osteoarthritis. There is mild bilat eral neural foraminal stenosis. There is mild central canal stenosis. IMPRESSION: 1. Severe lumbar spondylosis. Reviewed, dictated and finalized at location A.
== END 2024-01-05 09:45 | disposition home or self-care (01) ==
PROVIDERS: PCP Internal Medicine; Visit Provider Internal Medicine
DX: M54.16 Radiculopathy, lumbar region (principal); M43.06 Spondylolysis, lumbar region
CPT/HCPCS: 72148

== ENCOUNTER 2024-01-15 15:51 | Emergency (ER) | payer MEDICARE, OTHER, SELFPAY ==
--- NOTE | ~2024-01-15 | XR_ITS ---
EXAM: XR shoulder RT min 2V DATE: 01/15/2024 16:10 HISTORY: shoulder injury/pain . COMPARISON: None available. FINDINGS: Decreased mineralization. No fracture or dislocation. No lytic or blastic lesion. Moderate degenerative change at the AC joint and glenohumeral joint. Soft tissue anchor in the humeral head. Humeral head superior migration no subacromial narrowing. No erosion or periosteal change. Soft tissu es within normal limits. 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 Likely rotator cuff patholog y. No acute osseous finding. Reviewed, dictated and finalized at location K. 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 Likely rotator cuff pathology. No acute osseous finding.
[2024-01-15 15:56] VITALS: BP 210/93; PULSE 80; RESP 22; TEMP 37.2; O2SAT 97
[2024-01-15 15:59] VITALS: BP 210/93; PULSE 80; RESP 22; TEMP 37.2; O2SAT 97
--- NOTE | 2024-01-15 16:15 | ED.FALL ---
HPI - Fall General Chief Complaint: Extremity Injury, Upper Stated Complaint: shoulder injury right Time Seen by Provider: 01/15/24 15:52 Source: patient Mode of arrival: ambulatory Limitations: no limitations History of Present Illness HPI Narrative: Patient is an 83-year-old female with a ground level fall while walking the dog and fell backwards onto her right shoulder. Pain is at the right shoulder. MD complaint: fall Onset (ago): hour(s) (1) Fall from: standing Fall witnessed: yes, by family Place fall occurred: home Loss of consciousness: none Prolonged down time: no Symptoms prior to fall: none Context: tripped/slipped Location of injury: other ( Right shoulder) Location of injury - extremities: Right: shoulder Severity: moderate Severity scale (1-10): 6 Quality: sharp Associated symptoms (after fall): denies Related Data Home Medications Medication Instructions Recorded Confirmed atorvastatin 10 mg tablet 10 mg PO DAILY 07/24/23 01/15/24 losartan 100 1 tablet PO DAILY 01/15/24 01/15/24 mg-hydrochlorothiazide 25 mg tablet meloxicam 15 mg tablet 15 mg PO DAILY 01/15/24 01/15/24 pregabalin 100 mg capsule 300 mg PO DAILY 01/15/24 01/15/24 Allergies Allergy/AdvReac Type Severity Reaction Status Date / Time No Known Allergies Allergy Verified 01/15/24 15:56 Review of Systems Review of Systems: All systems reviewed & are unremarkable except as noted in HPI and below Constitutional: Constitutional: Reports no additional constitutional complaints Eyes: Eyes: Reports no additional eye complaints ENT: Reports system reviewed and no additional complaints, except as documented Cardiovascular: Cardiovascular: Reports no additional cardiovascular complaints Respiratory: Respiratory: Reports no additional respiratory complaints Gastrointestinal: Gastrointestinal: Reports no additional gastrointestinal complaints Genitourinary: Genitourinary: Reports no additional female genitourinary complaints Musculoskeletal: Musculoskeletal: Reports no additional musculoskeletal complaints Integumentary/Breasts: Skin/Breast: Reports system reviewed and no additional complaints, except as docu Neurologic: Reports system reviewed and no additional complaints, except as documented Psychiatric: Psychiatric: Reports no additional psychiatric complaints Endocrine: Endocrine: Reports no additional endocrine complaints Hematologic/Lymphatic: Hematologic/Lymphatic: Reports no additional hematologic/lymphatic complaints Allergic/Immunologic: Allergic/Immunologic: Reports no additional allergic/immunologic complaints PMFSH Past Medical History Medical History Anxiety Hypertension Social History Social History Smoking status: Never smoker Alcohol intake: current Drinks per week: 2 Substance use type: does not use Living arrangements: with family Spiritual care concerns: No Exam Const: General: healthy appearing Nutritional Appearance: well nourished Orientation/consciousness: patient oriented x3 HENMT: Head: normal to inspection Ears: external ears normal Face/Nose/Sinus: Normal external nose present Eyes: Conjunctivae: conjunctivae normal Pupils: Equal, round and reactive pupils present EOM: EOMs intact bilaterally Neck: Neck: normal visual inspection Chest: Chest palpation & inspection: normal inspection of the chest Resp: Effort & Inspection: normal respiratory effort and not labored Auscultation: clear to auscultation bilaterally and no crackles Cardio: Rate: regular rate Rhythm: regular rhythm Heart sounds: no murmurs GI: Inspection: non-distended GI Palp: Yes Soft to palpation and No Tenderness to palpation present (GI) Auscultation: normal bowel sounds : General: Yes bladder normal to palpation Back/Spine/Pelvis: Back: no CVA tenderness Skin: General skin ex
--- NOTE | 2024-01-15 16:33 | PC.NURSE ---
PT DECLINED PAIN MEDICATION UPON ARRIVAL, ICE PACK IS IN PLACE. PT IS AWAITING RESULTS AND ERP DECISION. WILL CONTINUE TO MONITOR. IS AT BEDSIDE.
[2024-01-15 16:34] VITALS: BP 184/82; PULSE 69; RESP 18; O2SAT 98
[2024-01-15 17:05] VITALS: BP 164/87; PULSE 78; RESP 18; O2SAT 98
== END 2024-01-15 17:05 | disposition home or self-care (01) ==
LOC: CHSED 17:04
PROVIDERS: Emergency Provider Emergency Medicine; PCP Internal Medicine
DX: S46.001A Unspecified injury of muscle(s) and tendon(s) of the rotator cuff of right shoulder, initial encounter (principal); I10 Essential (primary) hypertension; Z79.1 Long term (current) use of non-steroidal anti-inflammatories (NSAID); Z79.899 Other long term (current) drug therapy; W18.30XA Fall on same level, unspecified, initial encounter; Y93.K1 Activity, walking an animal
CPT/HCPCS: 73030; 99283; A4565

== ENCOUNTER 2024-01-21 13:19 | Outpatient (CLI) | payer MEDICARE, OTHER, SELFPAY ==
--- NOTE | ~2024-01-21 | MR_ITS ---
MRI of the right shoulder Technique: Axial proton-density fat-sat images, coronal proton density fat-sat and T2 fat-sat images, and sagittal T1-weighted and T2 fat-sat images were acquired. Clinical History: Injury Findings: There is advanced AC joint degenerative change, probably superior directed biparietal wilson e of the acromion and distal clavicle. Coracoclavicular, coracoacromial, and coracohumeral ligaments appear intact. Suture anchors at the humeral head suggests prior rotator cuff repair surgery. Humeral head is high r iding. There is full-thickness tears of the supraspinatus and infraspinatus tendons in their entirety , with fluid-filled gap measuring approximately 3.8 x 4.1 cm in extent. Subscapularis tendon appears intact with moderate tendinosis. Tendon of long head of the biceps appears to demonstrate rupture or prior tenodesis. There is probable deficiency the superior labrum. Inferior glenohumeral ligament is intact. Small glenohumeral joint effusion present with fluid passin g through the rotator cuff defect into the subacromial/subdeltoid bursa. There is fatty atrophy of th e supraspinatus muscle belly. 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 Probable prior rotator cuff repair surgery. Associated fatty atrophy of the supraspinatus muscle belly. Probable prior left shoulder tenodesis of the biceps tendon. Advanced AC joint degenerative change. High riding humeral head. Probable superior labral tear or prior debridement. Reviewed, dictated and finalized at location . Impression: Recurrent full-thickness tears of the supraspinatus and infraspinatus tendons i n their entirety, as detailed above. Probable prior rotator cuff repair surgery . Associated fatty atrophy of the supraspinatus muscle belly. Probable prior left shoulder tenodesis of the biceps tendon. Advanced AC joint degenerative change. High riding humeral head. Probable superior labral tear or prior debridement.
== END 2024-01-21 13:20 | disposition home or self-care (01) ==
LOC: GOSHIMG 13:20
PROVIDERS: PCP Internal Medicine; Visit Provider Internal Medicine
DX: S43.401A Unspecified sprain of right shoulder joint, initial encounter (principal); X58.XXXA Exposure to other specified factors, initial encounter
CPT/HCPCS: 73221

== ENCOUNTER 2024-03-21 08:56 | Outpatient (CLI) | payer MEDICARE, OTHER, SELFPAY ==
[2024-03-21 09:13] LABS: Basophils Absolute Auto 0.02 K/mm3 (0.00-0.10); Basophils Percent Auto 0.3 % (0.0-1.0); Eosinophils Absolute Auto 0.15 K/mm3 (0.02-0.50); Eosinophils Percent Auto 1.9 % (1.0-6.0); Hematocrit 38.9 % (35.0-42.0); Hemoglobin 13.1 g/dL (11.7-13.8); Immature Granulocyte Absolute 0.04 K/mm3 (0.00-0.00); Immature Granulocyte Percent A 0.5 % (0.0-0.0); Lymphocytes Absolute Auto 2.83 K/mm3 (1.10-4.50); Lymphocytes Percent Auto 35.4 % (18.0-42.0); Mean Corpuscular HGB Conc 33.7 g/dL (32-36); Mean Corpuscular Hemoglobin 29.7 pg (27.0-31.0); Mean Corpuscular Volume 88.2 fL (78.0-102.0); Monocytes Absolute Auto 0.66 K/mm3 (0.10-0.90); Monocytes Percent Auto 8.3 % (2.0-11.0); Neutrophils Absolute Auto 4.29 K/mm3 (1.70-7.20); Neutrophils Percent Auto 53.6 % (50.0-70.0); Platelet Count Result 269 K/mm3 (150-420); Red Blood Count 4.41 M/mm3 (4.20-5.40); Red Cell Distribution Width 13.2 % (11.6-14.4)
[2024-03-21 09:22] LABS: Add Urine Microscopic? NO; Appearance Urine Clear (Clear); Bilirubin Urine Negative (Negative); Blood Urine Negative (Negative); Color Urine Light Yellow (Yellow); Glucose Urine UA Negative (Negative); Ketones Urine Negative (Negative); Leukocyte Esterase Ur Negative (Negative); Nitrate Urine Negative (Negative); Protein Urine Negative (Negative); Specific Grav Ur <= 1.005 (1.010-1.020); Urobilinogen Urine 0.2 mg/dL (0.2-1.0)
[2024-03-21 10:21] LABS: Alanine Aminotransferase 66 U/L (14-59); Alkaline Phosphatase 267 U/L (46-116); Anion Gap 8 mmol/L (4-12); Aspartate Amino Transferase 46 U/L (15-37); Bilirubin,Total 0.8 mg/dL (0.00-1.00); Blood Urea Nitrogen 15 mg/dL (7-18); Calcium 9.3 mg/dL (8.5-10.1); Carbon Dioxide 31 mmol/L (21-32); Chloride 96 mmol/L (98-108); Cholesterol 149 mg/dL (0-200); Creatine Kinase 111 U/L (26-192); Estimated Glomerular Filt Rate > 60; Free T3 2.99 pg/mL (2.18-3.98); Free T4 Free Thyroxine 1.08 ng/dL (0.76-1.46); GGT 505 U/L (5-55); Glucose 105 mg/dL (70-99); HDL Direct 57 mg/dL (40-60); LDL Cholesterol Calculated 64 mg/dL (<130); Osmolality Calculated 280 mOsm/kg (285-295); Potassium 4.1 mmol/L (3.5-5.1); Sodium 135 mmol/L (136-145); Thyroid Stimulating Hormone 1.44 uIU/mL (0.36-3.74); Total Protein 6.6 g/dL (6.4-8.2); Triglycerides 141 mg/dL (0-150)
== END 2024-03-21 08:57 | disposition home or self-care (01) ==
PROVIDERS: PCP Internal Medicine; Visit Provider Internal Medicine
DX: E78.2 Mixed hyperlipidemia (principal); I10 Essential (primary) hypertension; E04.1 Nontoxic single thyroid nodule; R74.8 Abnormal levels of other serum enzymes
CPT/HCPCS: 36415; 80053; 80061; 81003; 82550; 82977; 84439; 84443; 84481; 85025

== ENCOUNTER 2024-04-24 13:01 | Outpatient (CLI) | payer MEDICARE, OTHER, SELFPAY ==
[2024-04-24] MEDS: DENOSUMAB 60 MG/ML SYRINGE SUB-Q (13:27)
[2024-04-24 13:30] VITALS: BP 148/74; PULSE 74; RESP 18; TEMP 36.6; O2SAT 96
[2024-04-24 13:48] VITALS: BMI 28.8
== END 2024-04-24 13:02 | disposition home or self-care (01) ==
PROVIDERS: PCP Internal Medicine; Visit Provider Internal Medicine
DX: M81.0 Age-related osteoporosis without current pathological fracture (principal)
CPT/HCPCS: 96372; J0897

== ENCOUNTER 2024-08-14 12:58 | Outpatient (CLI) | payer MEDICARE, OTHER, SELFPAY ==
--- NOTE | ~2024-08-14 | US_ITS ---
EXAMINATION: US carotid duplex BI DATE: 08/14/2024 13:35 INDICATION: Follow-up stenosis TECHNIQUE: Grayscale, color Doppler, and pulsed Doppler images of the cervical carotid arteries were obtained. The degree of vessel stenosis is placed in one of the following categories: normal, <50%, 5 0-69%, >=70% but less than near-occlusion, near-occlusion, or total occlusion. Note that percent sten osis relative to normal distal artery lumen diameter is indirectly measured from velocity measurement s as described by Raj, et al. Radiology 2003; 229:340-346. Notes: Normal: Peak systolic velocity <125 centimeters/sec and no plaque <50%. Peak systolic velocity <125 ( EDV <40; ICA/CCA PSV ratio <2.0; used these factors only a tandem lesions or low cardiac output or co ntralateral disease) 50-69 %: PSV 125-230 (EDV 40-100; ratio 2-4) >= 70% but less than near occlusion: PSV greater than 230 (EDV > 100; ratio> 4.0) Near Occlusion: PSV that is variable; markedly narrowed lumen Occlusion: Absent flow on color/spectral Doppler and no lumen on donaldson scale. COMPARISON: Ultrasound dated 08/02/2023. FINDINGS: RIGHT: The right common carotid artery (CCA) peak systolic velocity (PSV) is 87 cm/s. The right internal car otid artery (ICA) PSV is 130 cm/s. The right ICA end-diastolic velocity (EDV) is 33 cm/s. The right I CA/CCA PSV ratio is 1.5. The external carotid artery (ECA) PSV is 74 cm/s. There is antegrade flow in the right vertebral artery. LEFT: The left CCA PSV is 108 cm/s. The left ICA PSV is 90 cm/s. The left ICA EDV is 31 cm/s. The left ICA/ CCA PSV ratio is 0.83. The ECA PSV is 70 cm/s. There is antegrade flow in the left vertebral artery. IMPRESSION: 1. 50-69% stenosis in the right internal carotid artery by sonographic criteria. 2. Less than 50% stenosis in the left internal carotid artery by sonographic criteria. Reviewed, dictated and finalized at location A. IMPRESSION: 1. 50-69% stenosis in the right internal carotid artery by sonographic criteria . 2. Less than 50% stenosis in the left internal carotid artery by sonographic cr iteria.
--- NOTE | ~2024-08-14 | DEXA_ITS ---
Bone Density Report Name: RHINA FERREIRA Age: 84 Sex: Female Ethnicity: White Date of : 1940 Indication: monitoring treatment; height loss; prior fracture; Referring Provider: Toni Tracey Study: Bone densitometry was performed. Exam Date: August 14, 2024 Accession number: [id number] Bone Density: Region BMD T-score Z-score Classification AP Spine(L1, L2, L3) 1.153 1.2 3.9 Normal Femoral Neck (Left) 0.719 -1.2 1.2 Osteopenia Total Hip (Left) 1.013 0.6 2.8 Normal Femoral Neck (Right) 0.621 -2.1 0.4 Osteopenia Total Hip (Right) 1.011 0.6 2.8 Normal Femoral Neck Mean 0.670 -1.6 0.8 Osteopenia Total Hip Mean 1.012 0.6 2.8 Normal World Health Organization criteria for BMD impression classify patients as: Normal (T-score at or above -1.0), Osteopenia (T-score between -1.0 and -2.5), or Osteoporosis (T-score at or below -2.5). 10-year Fracture Risk: FRAX not reported because: Treated for osteoporosis Previous Exams: Region Exam Age BMD T-score BMD Change BMD Change Date g/cm2 vs Baseline vs Previous AP Spine (L1-L3) 08/14/2024 84 1.153 1.2 0.068 (6.3%)# 0.065 (6.0%)# 11/27/2022 82 1.088 0.6 0.003 (0.3%)# 0.019 (1.8%)# 11/16/2020 80 1.069 0.5 -0.016 (-1.5%) -0.043 (-3.9%) 11/14/2018 78 1.112 0.9 0.027 (2.5%)*! 0.059 (5.6%)* 09/19/2016 76 1.053 0.3 -0.032 (-3.0%) 0.000 (0.0%) 04/15/2014 74 1.053 0.3 -0.032 (-2.9%) -0.021 (-1.9%) 03/31/2011 71 1.074 0.5 -0.011 (-1.0%) 0.001 (0.1%) 03/22/2009 69 1.073 0.5 -0.012 (-1.1%) -0.012 (-1.1%) 03/01/2007 67 1.085 0.6 Total Hip(Left) 08/14/2024 84 1.013 0.6 0.024 (2.5%)# 0.076 (8.1%)# 11/27/2022 82 0.937 0.0 -0.051 (-5.2%) -0.002 (-0.2%) 11/16/2020 80 0.939 0.0 -0.050 (-5.0%) -0.027 (-2.8%) 11/14/2018 78 0.966 0.2 -0.023 (-2.3%) 0.065 (7.2%)* 09/19/2016 76 0.901 -0.3 -0.088 (-8.9%) -0.006 (-0.7%) 04/15/2014 74 0.907 -0.3 -0.082 (-8.3%) -0.044 (-4.6%) 03/31/2011 71 0.951 0.1 -0.038 (-3.8%) -0.019 (-2.0%) 03/22/2009 69 0.970 0.2 -0.018 (-1.8%) -0.018 (-1.8%) 03/01/2007 67 0.988 0.4 Total Hip(Right) 08/14/2024 84 1.011 0.6 0.025 (2.6%)# 0.075 (8.0%)# 11/27/2022 82 0.936 -0.1 -0.050 (-5.1%) 0.004 (0.5%)# 11/16/2020 80 0.931 -0.1 -0.054 (-5.5%) 0.008 (0.9%)# 11/14/2018 78 0.923 -0.2 -0.063 (-6.4%) 0.004 (0.4%) 04/15/2014 74 0.919 -0.2 -0.067 (-6.8%) -0.026 (-2.7%) 03/31/2011 71 0.944 0.0 -0.041 (-4.2%) -0.027 (-2.8%) 03/22/2009 69 0.971 0.2 -0.014 (-1.5%) -0.014 (-1.5%) 03/01/2007 67 0.986 0.4 *Denotes significance at 95% confidence level, LSC for AP Spine = 0.022 g/cm2, LSC for Total Hip = 0.027 g/cm2 # Denotes dissimilar scan types or analysis methods Clinical Information Provided by Patient: Has had a low trauma fracture Is being treated for osteoporosis Has used the following medications: Prolia (i.e. denosumab), Vitamin D, Calcium Patient maximum height was 65 Menopause Age: 56 No regular weight bearing exercise Onset of menses at age 13 Number of children 2 Impression: The patient has low bone mass, based on the Right Femoral Neck T-score. The patient has risk factors, including: previous fracture. No significant bone loss was observed. Discussion: PATIENT UNDER TREATMENT WITH NO SIGNIFICANT BMD LOSS SINCE LAST EXAM. In an untreated patient, BMD typically declines with age. A lack of decline or gain is usually a sign that treatment is efficacious and fracture risk is reduced. It is important to ask patients whether they are taking their medications and to encourage continued and appropriate compliance with their osteoporosis therapies to reduce fracture risk. It is also important to review their risk factors and encourage appropriate calcium and vitamin D intakes, exercise, fall prevention and other lifestyle measures. Follow-Up: Consider a repeat BMD and Vertebral Fracture Assessment (VFA) exam in 2 years or sooner if medically necessary, to reassess this patient's status. Reported by: JOSHUA on 08/14/2024 1:22:00 PM. Reviewed, dictated and finalized at location A.
--- OUTSIDE RECORDS SUMMARY | 2024-08-14 13:58 | XMS_ITS | Clinical Summary ---
Author Organization [facility] Address [facility] [place] [address] Care Team Providers Care Pilot Steam Yacht Name Role Phone Unavailable Primary Care Provider Unavailabl e Social History Tobacco Use Types Packs/Day Years Used Date Smoking Tobacco: Never Assessed Comments Unknown Sex and Gender Information Value Date Recorded Sex Assigned at Not on file Legal Sex Female 7:29 PM CDT Gender Identity Not on file Sexual Orientation Not on file Plan of Treatment Health Maintenance Due Date Last Done Comments DTaP, Tdap and Td Vaccines ( 1 - Tdap) 1961 Pneumococcal Vaccine: 50+ Ye ars (1 of 1 - PCV) 02/10/1992 Zoster Vaccines (1 of 2) 02/10/1992 Dexa Scan (General) 2007 RSV Immunization or 60+ Years (1 - 1-dose 75+ series) 2017 COVID-19 Vaccine (2023-2 5 season) 2023 Meningococcal B Vaccine Aged Out No l onger eligible based on patient's age to complete this topic Meningococcal Vaccine Aged Out No komal chavo eligible based on patient's age to complete this topic RSV Immunizations Under 20 Months Aged Out No longer eligible based on patient's age to complete this topic
--- OUTSIDE RECORDS SUMMARY | 2024-08-14 13:59 | XMS_ITS | Encounter Summary ---
Author Organization [facility] Address [address] [place] [address] Care Team Providers Care Employee Relations Administrator Name Role Phone Toni Tracey MD Primary Care Provider [phone] Reason for Referral * MRI/CAT/PET Scan (Routine) - Authorized Specialty Diagnoses / Procedures Referred By Contac t Referred To Contact Radiology Diagnoses Rotator cuff arthropathy of right shoulder Procedures CT Shoulder Right WO Contrast Golden Rosenbaum MD [address] [place] [address] DR ASHLI Wu [facility] [address] [place] [address] Phone: tel: fax: [address] [phone] Referral ID Status Reason Start Date Expiration Date V isits Requested Visits Authorized [id number] Authorized 08/14/2024 09/13/2025 1 1 Encounter Details Date Type Department Care Team (Late st Contact Info) Description 08/14/2024 Orders Only [facility] Orthopedic and Sports Medicine [address] [place] [phone] Golden Rosenbaum MD [address] [place] [address] DR ASHLI Wu [facility] [address] [place] [address] Rotator cuff arthropathy of right shoulder (Primary Dx) Social History Tobacco Use Types Packs/Day Years Used Date Smoking Tobacco: Never Smokeless Tobacco: Never AUDIT-C Answer Date Recorded Q1: How often do you have a drink containing alcohol? Never 07/04/2024 Q2: How many drinks containi ng alcohol do you have on a typical day when you are drinking? Patient does not drink Q3: How often do you have si x or more drinks on one occasion? 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 Gender Identity Not on file Sexual Orientation Not on file documented as of this encounter Plan of Treatment Scheduled Orders Name Type Priority Associated Diagnoses Orde r Schedule CT Shoulder Right WO Contrast Imaging Schedule Routine, Read Routine (OP Routine) Rotator Cuff Arthropathy Of Right Shoulder Expected: 08/14/2024, Expires: 08/14/2025 documented as of this encounter Visit Diagnoses Diagnosis Rotator cuff arthropathy of right shoulder- Primary documented in this encounter Care Teams Employee Relations Administrator Relationship Specialty Start Date End Date Toni Tracey MD [address] [place] [address] PCP - General 02/29/16 documented as of this encounter
--- OUTSIDE RECORDS SUMMARY | 2024-08-14 13:59 | XMS_ITS | Clinical Summary ---
Author Organization [facility] Address [address] [place] [address] Care Team Providers Care Post Doctoral Researcher Name Role Phone Unavailable Primary Care Provider Unavailabl e Source Comments [facility],non-owned Affiliates and Associated Physician Practices is amultiple site organization consisting of ambulatory clinics and hospital sitesin [place], [place], [place] and [place]. This disclosure is being madepursuant to the Care Everywhere program and may not contain all information available regarding this patient. 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 Gender Identity Not on file Sexual Orientation Not on file Plan of Treatment Health Maintenance Due Date Last Done Comments BONE DENSITY TESTING 1942 DTAP/TDAP/TD VACCINES (1 - Tdap) 1961 PNEUMOCOCCAL VACCINE 50+ (1 of 1 - PCV) 02/10/1992 ZOSTER VACCINE (1 of 2) 02/10/1992 Respiratory Syncytial Virus (RSV) Vaccine Pt: or over 60 yrs (1 - 1-dose 75+ series) 2017 COVID-19 VACCINE ( - 2023-2 5 season) 2023 DEPRESSION SCREENING 04/16/2024 INFLUENZA VACCINE (Season Ended) 2024 HEPATITIS B VACCINE Aged Out No longe r eligible based on patient's age to complete this topic HIB VACCINE Aged Out No longer eligi ble based on patient's age to complete this topic HPV VACCINE Aged Out No longer eligi ble based on patient's age to complete this topic MENINGOCOCCAL (Group B) VACC INE SHARED DECISION-MAKING Aged Out No longer eligibl e based on patient's age to complete this topic MENINGOCOCCAL GROUPS A/C/Y/W VACCINE Aged Out No longer eligible b ased on patient's age to complete this topic Insurance [facility]
--- OUTSIDE RECORDS SUMMARY | 2024-08-14 14:00 | XMS_ITS | Encounter Summary ---
Author Organization [facility] Address [address] [place] [address] Care Team Providers Care Home Office Representative Name Role Phone Toni Tracey MD Primary Care Provider Encounter Details Date Type Department Care Team ([facility] st Contact Info) Description 12/16/2019 Telephone 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
--- OUTSIDE RECORDS SUMMARY | 2024-08-14 14:00 | XMS_ITS | Encounter Summary ---
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 * Telephone Encounter - Homero Adams ATC - 08/14/2024 9:49 AM CDT Procedure: Right Reverse Total Shoulder Arthroplasty DOS: TBD Surgery Clearance Checklist: [x] PCP: Toni Tracey MD [] Cardiology: [] Endocrinology: [] Pulmonology: [] Neurology: [] Other: Blood Thinner: [x] Yes Name of medication: ASA 81mg [] No Is patient a Diabetic: [] Yes [x] No Preferred Outpatient Physical Therapy location: [facility] Reviewed with patient surgery clearance requirements that forms must be returned to our office no later than 72 hours prior to surgery. Later than 72 hours may cause patients surgery to be cancelled and/or rescheduled. Reviewed with patient that appointments with the above provider should be scheduled in a timely manner, and recommend appointments be made no later than 3 weeks prior to surgery. For Total Arthoplasty Surgery: Reviewed with patient labs to be completed prior to surgery, advisedthese must be completed no more than 30 days prior to surgery. Patient was advised to completely these early on in the 30 day window to allow time to address abnormal results if they arise. Labs are to be completed at: [facility] Medications to be discontinued prior to surgery were reviewed with patient, and hand out provided listing when to stop prior to surgery. Patient instructed to contact PCP and/or prescribing provider with questions about when to discontinue prior to surgery. For blood thinners, patient was instructed to speak with prescribing provider about when to discontinue and was advised our office needs documentation on when to stop prior to surgery. This can be completed on the form provided for the patient. Reviewed with patient use of surgical soap prior to surgery. Patient was instructed to use the evening before and the morning of surgery. Advised to not wash hair, face, genital, or rectal area. Patient expressed full understanding of the above in preparation for surgery. Patient was advised to contact our office if any questions or concerns arise prior to surgery. MA/ATC Name: Homero Adams ATC documented in this encounter Plan of Treatment Not on file documented as of this encounter Visit Diagnoses Not on filedocumented in this encounter Care Teams Quarter Backer Relationship Specialty Start Date End Date Toni Tracey MD [address] [place] [address] PCP - General 02/29/16 documented as of this encounter
--- OUTSIDE RECORDS SUMMARY | 2024-08-14 14:00 | XMS_ITS | Encounter Summary ---
Author Organization [facility] Address [address] [place] [address] Care Team Providers Care Front Window Cashier Name Role Phone Toni Tracey MD Primary Care Provider [phone] Reason for Visit * Reason Comments Pain Encounter Details Date Type Department Care Team (Late st Contact Info) Description 08/13/2024 1:45 PM CDT Office Visit [facility] Orthopedic and Sports Medicine [address] [place] [phone] Golden Rosenbaum MD [address] [place] [address] DR COR[address]US [address] [address] Rotator cuff arthropathy of right shoulder (Primary [...] on file 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 Gender Identity Not on file Sexual Orientation Not on file documented as of this encounter Last Filed Vital Signs Vital Sign Reading Time Taken Comments Blood Pressure 161/81 08/13/2024 2:08 PM CDT Pulse 73 08/13/2024 2:08 PM CDT Temperature - - Respiratory Rate - - Oxygen Saturation - - Inhaled Oxygen Concentration - - Weight 72.6 kg (160 lb) 08/13/2024 2:08 PM CDT Height 157.5 cm (5' 2 ) 08/13/2024 2:08 PM CDT Body Mass Index 29.26 08/13/2024 2:08 PM CDT documented in this encounter Patient Instructions * Patient Instructions* Homero Adams ATC - 08/13/2024 1:45 PM CDT Thank you for coming in today. Homero LAWSON , and I are thankful you have trusted us with your care, and hope that you receive EXCELLENT care today! Please do not hesitate to call if you have any questions or concerns at [phone] or send us a message via [employer]. You may receive a phone call or text asking about your care today and we would love to hear your input. We hope your visit was as excellent as possible and we look forward to continuing to provide you with excellent care. documented in this encounter Progress Notes * Golden Rosenbaum MD - 08/13/2024 1:45 PM CDT Images from the original note were not included. NEW PATIENT VISIT Subjective CHIEF COMPLAINT She had concerns including Pain of the Right Shoulder. HISTORY OF PRESENT ILLNESS Chief complaint right shoulder dysfunction problem started last January when she fell on her shoulder since this time she has been losing function in her arm she really has no pain to mild pain but has very difficult time doing things like her here is unable to abduct her arm on her own without using her other arm she denies any numbness and tingling in her hand she had an MRI done January 7th is here for surgical consultation Manager Student Services completed by using M*Modal Fluency Direct speaking software, therefore, transcriptionvariances may occur. Pain Assessment Pain Assessment: No/denies pain PAST MEDCIAL HISTORY She Past Medical History: Diagnosis Date ??? Pancreatic neoplasm PAST SURGICAL HISTORY She has a past surgical history that includes IR Abscess Tube Exchange (N/A, 2016); CT GuidedPeritoneal or Retroperitoneal Drainage (N/A, 01/31/2016); and Pancreaticoduodenectomy. MEDICATIONS She has a current medication list which includes the following prescription(s): alendronate, xanax,vitamin c, atorvastatin, buspirone, calcium acetate(phosphat bind), celecoxib, vitamin y90-udqhv acid, hyoscyamine, losartan- hydrochlorothiazide, multivitamin, omeprazole, and triamterene-hydrochlorot hiazide. ALLERGIES She has no known allergies. SOCIAL HISTORY She reports that she has never smoked. She has never used smokeless tobacco. Patient denies consuming alcoholic drinks. FAMILY HISTORY Her family history is not on file. REVIEW OF SYSTEMS Review of Systems Constitutional: Negative for activity change, appetite change, chills, fever and unexpected weight change. HENT: Negative for congestion, dental problem, ear pain, hearing loss, nosebleeds, tinnitus and voice change. Eyes: Negative for pain and visual disturbance. Respiratory: Negative for apnea, cough, chest tightness and shortness of breath. Cardiovascular: Negative for chest pain, palpitations and leg swelling. Gastrointestinal: Negative for blood in stool, constipation, diarrhea, nausea and vomiting. Endocrine: Negative for cold intolerance and heat intolerance. Genitourinary: Negative for difficulty urinating, hematuria and urgency. Skin: Negative for color change, rash and wound. Allergic/Immunologic: Negative for environmental allergies. Neurological: Negative for dizziness, syncope, numbness and headaches. Hematological: Negative for adenopathy. Does not bruise/bleed easily. Psychiatric/Behavioral: Negative for confusion. The patient is not nervous/anxious and is not hyperactive. Objective PHYSICAL EXAM BP 161/81 Pulse 73 Ht 157.5 cm (5' 2 ) Wt 72.6 kg (160 lb) BMI 29.26 kg/m?? Right shoulder Inspection Effusion: 1+ Atrophy: present Surgical scar/wound: present. The surgical scar/wound is healed and no evidence of infection. Palpation Tenderness is present. The patient has tenderness in the anterior shoulder, lateral shoulder and posterior shoulder area(s). Range of motion The patient has reduced range of motion of the right shoulder. The patient has pain with range of motion of the right shoulder. Active forward flexion: 10 degrees. Active flexion: 50 degrees. Active abduction: 10 degrees. Passive forward flexion: 140 degrees. Stability Th patient has normal stability of the right shoulder. Strength The patient does not have normal strength at baseline. Shoulder abduction: 2/5 Internal rotation: 2/5 Supraspinatus: 0/5 Deltoid: 2/5 and pain free Neurovascular The patient has normal vascular on the right side of her body. She has normal sensation on the right side of her body. Tests Belly press: positive Drop arm: positive Viktor's: positive Left shoulder Inspection The patient has normal inspection of the left shoulder. Palpation Tenderness is absent. Range of motion The patient has normal range of motion of the left shoulder. The patient does not have pain with range of motion of the left shoulder. Stability The patient has normal stability of the left shoulder. Strength The patient has 5/5 strength throughout. Neurovascular The patient has normal vascular on the left side of their body. The patient has normal sensation on the left side of their body. Tests Cross am: negative Drop arm: negative Viktor's: viktor's [place]'s: negative Speed's: positive REVIEW OF X-RAYS/STUDIES/LABS My personal interpretation MRI is a complete rupture of the supraspinatus infraspinatus with severeatrophy of her rotator cuff tendons and musculature previous rotator cuff repair anchor superior migration of the humeral head with acetabularization of the acromion. Assessment/Plan Julia was seen today for pain. Diagnoses and all orders for this visit: Rotator cuff arthropathy of right shoulder Procedures PLAN Recommend PT once a week and home exercise program work on strengthening her deltoid once her strength is 4/5 she would be a candidate for reverse total shoulder which has potential to reverse her pseudo paralysis. I discussed the nature of the patient's condition in the clinic today. The patient has failed conservative treatment for rotator cuff arthropathy including corticosteroid injection and physical therapy. We discussed reverse total shoulder arthroplasty.. Risks and benefits of the procedure were discussed the patient to include bleeding, infection, damage to surrounding structures including nerves and vessels, persistent stiffness and possible fracture, dislocation. The patient understood these risks and agreed to proceed with surgery as described above and informed consent was established in the office today. CT scan will be ordered to assess glenoid quality and version for preoperative plan. LULU Barragan MD documented in this encounter Plan of Treatment Not on file documented as of this encounter Visit Diagnoses Diagnosis Rotator cuff arthropathy of right shoulder- Primary documented in this encounter Care Teams Front Window Cashier Relationship Specialty Start Date End Date Toni Tracey MD [address] [id number] PCP - General 02/29/16 documented as of this encounter
--- OUTSIDE RECORDS SUMMARY | 2024-08-14 14:01 | XMS_ITS | Encounter Summary ---
Author Organization [facility] Address [address] [place] [address] Care Team Providers Care Certified Drug Counselor Name Role Phone Toni Tracey MD Primary Care Provider [phone] Reason for Referral * Cardiology (Routine) - Authorized Specialty Diagnoses / Procedures Referred By Contac t Referred To Contact Diagnoses Rotator cuff arthropathy of right shoulder Procedures ECG 12 lead Golden Rosenbaum MD [address] [place] [address] DR ASHLI Wu [address] [address] Phone: tel: fax: [address] [phone] Referral ID Status Reason Start Date Expiration Date V isits Requested Visits Authorized [id number] Authorized 08/14/2024 09/13/2025 1 1 * Consultation (Routine) - Authorized Specialty Diagnoses / Procedures Referred By Contac t Referred To Contact Physical Therapy Diagnoses Rotator cuff arthropathy of right shoulder Golden Rosenbaum MD [address] [place] [address] DR ASHLI Wu [address] [address] Phone: tel: fax: External Order Referral ID Status Reason Start Date Expiration Date Visits Requested Visits Authorized [id number] Authorized Specialty Services Required 08/14/2024 09/13/2025 12 12 Question Answer PTRFR PT Evaluate and Treat Therapy options discussed with patient? Yes Location provided for therapy services is: Patient requested/Patient preferred Please select the performing region: External Order [171] # of visits: 12 Comments [facility] B[facility] Treat Right Shoulder Emphasize deltoid strengthening for possible Rev TSR 2-3x week for 6 weeks Please contact patient to schedule barber Encounter Details Date Type Department Care Team (Late st Contact Info) Description 08/14/2024 Orders Only [facility] Group Orthopedic and Sports Medicine [address] [place] [phone] Golden Rosenbaum MD [address] [place] [address] DR CORNELIUS B [facility] [address] [place] [address] Rotator cuff arthropathy of right shoulder (Primary Dx); Encounter for screening for diabetes mellitus Social History Tobacco Use Types Packs/Day Years [...] on file 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 Gender Identity Not on file Sexual Orientation Not on file documented as of this encounter Plan of Treatment Scheduled Orders Name Type Priority Associated Diagnoses Order Schedule CBC with auto differential Lab Routine Rotator Cuff Arthropathy Of Right Shoulder Expected: 08/14/2024, Expires: 08/14/2025 Comprehensive metabolic panel Lab Routine Rotator Cuff Arthropathy Of Right Shoulder Expected: 08/14/2024, Expires: 08/14/2025 Urinalysis reflex to microscopic and culture Urine, clean voided Microbiology Routine Rotator Cuff Arthropathy Of Right Shoulder Expected: 08/14/2024, Expires: 08/14/2025 Hemoglobin A1c Lab Routine Rotator Cuff Arthropathy Of Right Shoulder Encounter for screening for diabetes mellitus Expected: 08/14/2024, Expires: 08/14/2025 ECG 12 lead ECG Routine Rotator Cuff Arthropathy Of Right Shoulder 1 Occurrences starting 08/14/2024 until 08/14/2025 XR Chest Pa Lateral 2 Views Imaging Schedule Routine, Read Routine (OP Routine) Rotator Cuff Arthropathy Of Right Shoulder Expected: 08/14/2024, Expires: 08/14/2025 Scheduled Referrals Name Type Priority Associated Diagnoses Orde r Schedule Ambulatory referral order to Physical Therapy - Outpatient Referral Routine Rotator Cuff Arthropathy Of Right Shoulder Expected: 08/28/2024 (Approximate), Expires: 08/14/2025 documented as of this encounter Visit Diagnoses Diagnosis Rotator cuff arthropathy of right shoulder- Primary Encounter for screening for diabetes mellitus documented in this encounter Care Teams Certified Drug Counselor Relationship Specialty Start Date End Date Toni Tracey MD [address] [place], [place] [phone] PCP - General 02/29/16 documented as of this encounter
--- OUTSIDE RECORDS SUMMARY | 2024-08-14 14:01 | XMS_ITS | CONTINUITY OF CARE DOCUMENT ---
Author Name reyes chambers Address Unknown Organization [facility] Address [id number] [place] [address] [address] [place] [address] Phone [phone] Care Team Providers Care Duck Bill Operator Name Role Phone reyes chambers Unavailable Unavailable
--- OUTSIDE RECORDS SUMMARY | 2024-08-14 14:02 | XMS_ITS | Referral Summary ---
Author Organization [facility] Address [address] [place] [address] Care Team Providers Care Table Cover Folder Name Role Phone Toni Tracey MD Primary Care Provider Encounters Date Type Department Care Team Description 08/14/[address] [facility] Group Orthopedics and Sports Medicine [address] [place] [address] [address] [place] [address] Golden Rosenbaum MD Rotator cuff arthropathy of right shoulder (Primary Dx) 08/14/2024 Telephone [facility] Orthopedics and Sports Medicine [address] [place] [address] [address] [place] [phone] Golden Rosenbaum MD 08/14/[address] [facility] Orthopedic and Sports Medicine [address] [place] [phone] Golden Rosenbaum MD S/P reverse total shoulder arthroplasty, right (Primary Dx) 08/14/2024 Orders Only [facility] Orthopedic and Sports Medicine [address] [place] [phone] Golden Rosenbaum MD Rotator cuff arthropathy of right shoulder (Primary Dx) 08/14/2024 Telephone [facility] Orthopedic and Sports Medicine [address] [place] [phone] Golden Rosenbaum MD 08/14/[address] [facility] Medical [facility] Orthopedic and Sports Medicine [address] [place] [phone] Golden Rosenbaum MD Rotator cuff arthropathy of right shoulder (Primary Dx); Encounter for screening for diabetes mellitus 08/13/2024 1:45 PM CDT Office Visit [facility] Orthopedic and Sports Medicine [address] [place] [phone] Golden Rosenbaum MD Rotator cuff arthropathy of right shoulder (Primary Dx) 07/04/2024 1:15 PM CDT Office Visit [facility] Orthopedics and Sports Medicine [address] [place] [address] [address] [place] [address] Burak Mari NP Rotator cuff arthropathy, right (Primary Dx) from Last 3 Months Allergies No known active allergies Medications ALPRAZolam (XANAX) 0.25 mg tablet prn 0 0 4 Active triamterene-hyd roCHLOROthiazid e (MAXZIDE,DYAZID E) 37.5-25 mg per tablet take 1 tablet by oral route every day 0 0 4 Active multivitamin capsule 0 0 4 Active CYANOCOBALAMIN/ FOLIC ACID (VITAMIN K83-WSMTF ACID) 1,000-400 mcg tablet, sublingual 0 0 4 Active ascorbic acid, vitamin C, (VITAMIN C) 500 mg capsule, extended release CR capsule 500 mg. 1 0 4 Active hyoscyamine (LEVSIN) 0.[address] 1 tablet by sublingual route every 4 hours 1 0 4 Active alendronate (FOSAMAX) 70 mg tablet Take 1 tablet (70 mg total) by mouth every 7 days Take in the morning with a full glass of water, on an empty stomach, and do not take anything else by mouth or lie down for the next 30 min. Active omeprazole (PriLOSEC) 40 mg capsule Take 1 capsule (40 mg total) by mouth daily Active calcium acetate (PHOSLO) 667 mg capsule Take 1,200 mg by mouth daily. 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 Postoperative state 11/12/2013 Overview (07/21/2016): Post-operative state Social History Tobacco Use Types Packs/Day Years Used Date Smoking Tobacco: Never Smokeless Tobacco: Never Tobacco Cessation:Counseling Given: Not Answered AUDIT-C Answer Date Recorded Q1: How often [...] on file 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 Gender Identity Not on file Sexual Orientation Not on file Last Filed Vital Signs Vital Sign Reading Time Taken Comments Blood Pressure 161/81 08/13/2024 2:08 PM CDT Pulse 73 08/13/2024 2:08 PM CDT Temperature 20 C (68 F) 12/17/2019 12:18 PM CDT Respiratory Rate - - Oxygen Saturation - - Inhaled Oxygen Concentration - - Weight 72.6 kg (160 lb) 08/13/2024 2:08 PM CDT Height 157.5 cm (5' 2 ) 08/13/2024 2:08 PM CDT Body Mass Index 29.26 08/13/2024 2:08 PM CDT Plan of Treatment Not on file Insurance MEDICARE [facility] MEDICARE [facility] MEDICARE [facility] Care Teams Table Cover Folder Relationship Specialty Start Date End Date Toni Tracey MD [address] [place] [address] PCP - General 02/29/16
--- OUTSIDE RECORDS SUMMARY | 2024-08-14 14:02 | XMS_ITS | Encounter Summary ---
Author Organization [facility] Address [address] [place] [address] Care Team Providers Care Miter Cutter Name Role Phone Toni Tracey MD Primary Care Provider [phone] Reason for Referral * Consultation (Routine) - Authorized Specialty Diagnoses / Procedures Referred By Contac t Referred To Contact Physical Therapy Diagnoses S/P reverse total shoulder arthroplasty, right Golden Rosenbaum MD [address] [place] [address] DR CORNELIUS B [address] [address] Phone: tel: fax: External Order Referral ID Status Reason Start Date Expiration Date Visits Requested Visits Authorized [id number] Authorized Specialty Services Required 08/14/2024 09/13/2025 24 24 Question Answer PTRFR PT Evaluate and Treat Therapy options discussed with patient? Yes Location provided for therapy services is: Patient requested/Patient preferred Please select the performing region: External Order [171] # of visits: 24 Comments ([facility]) RIGHT REVERSE TOTAL SHOULDER REHABILITATION PROTOCOL Surgery Date: TBD Please initiate treatment 2 weeks post op. Please evaluate and treat according to the following protocol: 2-3 times per week for 6-12 weeks ADDITIONAL INSTRUCTIONS: Please note, patient will not be seen back in office until 8 weeks post-op. Please contact our office if patient is not progressing as expected at [phone]. Therapy Pearls First 12 weeks: Avoidance of extension beyond neutral and combined adduction with Internal rotation Dislocations typically occur with combined adduction with internal rotation-thus personal hygiene and actions such as tucking in a shirt Deltoid and jet-scapular musculature is primary target/focus of rehab as these will be responsible for providing stability and mobility of the shoulder Deltoid will act as primary elevator-do not over stress early on ROM should be progressed to patient tolerance. NO FORCEFUL STRETCHING! Normal or full AROM is not expected DELAYED PROTOCOL means that start of this protocol will be delayed 2-4 weeks and may be delayed due to the following Complex fracture Poor quality bone (requiring longer time for implant to affix/stabilize in bone) Revision surgery When progressing strengthening, there is risk of acromial fracture with increased overload of the deltoid Continually monitor for increased soreness to deltoid/lateral aspect of the shoulder Contact MD office immediately if this occurs and does not subside within a day. Ultimately, 15 pound weight lifting restriction of the surgical extremity at 6 months Phase I-Initial post operative healing phase (weeks 1-6) Sling 2 weeks 4-6 weeks if revision, fracture, or delayed protocol Ice/TENS unit (after On-Q ball is removed) for pain/swelling Ability to perform home ADLs/personal hygiene independently or with help of family Mobility/transfer to/from bed and chair without pushing through surgical extremity Early, gentle PROM Days 1-21: Forward flexion/scaption to 90 degrees; ER 30 degrees in scapular plane NO INTERNAL ROTATION Days 21-6 weeks post op: Forward flexion/scaption to 120 degrees; ER in scapular plane to tolerance-do not push beyond point of resistance No lifting >1 pound surgical extremity Submaximal deltoid isometrics can be initiated after 2 weeks post op Avoid extension of arm with posterior deltoid isometrics Phase II-AROM and early strengthening (weeks 6-12) Weeks 6-9 Continue ice/TENS Continue to progress PROM and may initiate AAROM/AROM Weeks 6-8: progression of sitting/standing AAROM/AROM for flexion/scaption and ER (in scaption) to tolerable levels Initiate PROM of IR in scapular plane per tolerance-not to exceed 50 degrees Rhythmic stabilization in supine (minimize deltoid recruitment-focus on scapular mechanics) Scapular strengthening-continue to avoid extension (beyond plane of body) Strengthening of distal surgical extremity Limit of 5 pounds with no pushing up through extremity Grade I - II joint mobilizations Weeks 9-12 Submaximal isometrics of GH ER/IR May later progress to light isotonic with Theraband or weight (1-3 pounds) Submaximal isotonic strengthening for shoulder flexion/scaption/abduction Continued emphasis of scapular mechanics Continue progression of functional activities Phase III - moderate strengthening (weeks 12-16) Continued progression of strengthening and functional activities, emphasizing mechanics No sudden or aggressive pushing/lifting Continued 5 pound weight restriction Phase IV - Continued home exercise program (weeks 16+) 10 pound lifting restriction surgical extremity 15 pound restriction at 6 months post op. 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 Gender Identity Not on file Sexual Orientation Not on file documented as of this encounter Plan of Treatment Scheduled Referrals Name Type Priority Associated Diagnoses Order Schedule Ambulatory referral order to Physical Therapy - Outpatient Referral Routine S/P reverse total shoulder arthroplasty, right Expected: 08/28/2024 (Approximate), Expires: 08/14/2025 documented as of this encounter Visit Diagnoses Diagnosis S/P reverse total shoulder arthroplasty, right- Primary documented in this encounter Care Teams Miter Cutter Relationship Specialty Start Date End Date Tracey, Rajneesh S., MD [address] [place] [address] PCP - General 02/29/16 documented as of this encounter
--- OUTSIDE RECORDS SUMMARY | 2024-08-14 14:03 | XMS_ITS | Clinical Summary ---
Author Organization [facility] Address [address] [place] [address] Care Team Providers Care Digital Production Manager Name Role Phone Toni Tracey MD Primary Care Provider Allergies No known active allergies Medications ALPRAZolam (XANAX) 0.25 mg tablet prn 0 0 4 Active triamterene-hyd roCHLOROthiazid e (MAXZIDE,DYAZID E) 37.5-25 mg per tablet take 1 tablet by oral route every day 0 0 4 Active multivitamin capsule 0 0 4 Active CYANOCOBALAMIN/ FOLIC ACID (VITAMIN I58-NRGEA ACID) 1,000-400 mcg tablet, sublingual 0 0 [...] Postoperative state 11/12/2013 Overview (07/21/2016): Post-operative state Encounters Date Type Department Care Team Description 08/14/2024 Orders Only [facility] Medical Group Orthopedics and Sports Medicine [address] [place] [address] [address] [place] [phone] Golden Rosenbaum MD Rotator cuff arthropathy of right shoulder (Primary Dx) 08/14/2024 Telephone [facility] Orthopedics and Sports Medicine [address] [place] [address] [address] [place] [phone] Golden Rosenbaum MD 08/14/2024 Orders Only [facility] Medical Group Orthopedic and Sports Medicine [address] [place] [phone] Golden Rosenbaum MD S/P reverse total shoulder arthroplasty, right (Primary Dx) 08/14/2024 Orders Only [facility] Group Orthopedic and Sports Medicine [address] [place] [phone] Golden Rosenbaum MD Rotator cuff arthropathy of right shoulder (Primary Dx) 08/14/2024 Telephone [facility] Group Orthopedic and Sports Medicine [address] [place] [phone] Golden Rosenbaum MD 08/14/2024 Orders Only [facility] Medical [facility] Orthopedic and Sports Medicine [address] [place] [phone] Golden Rosenbaum MD Rotator cuff arthropathy of right shoulder (Primary Dx); Encounter for screening for diabetes mellitus 08/13/2024 1:45 PM CDT Office Visit [facility] Orthopedic and Sports Medicine [address] [place] [phone] Golden Rosenbaum MD Rotator cuff arthropathy of right shoulder (Primary Dx) 07/04/2024 1:15 PM CDT Office Visit [facility] Orthopedics and [facility] Medicine [address] [place] [address] [place] [phone] Burak Mari NP Rotator cuff arthropathy, right (Primary Dx) from Last 3 Months Surgical History Surgery Date Site/Laterality Comments ABSCESS TUBE EXCHANGE 2016 N/A CT GUIDED DRAINAGE PERITONEA L OR RETROPERITONEAL FLUID COLLECTION 01/31/2016 N/A PANCREATICODUODENECTOMY Medical History Medical History Date Comments Pancreatic neoplasm Social History Tobacco Use Types Packs/Day Years [...] on file 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 Gender Identity Not on file Sexual Orientation Not on file Obstetrics History Last Filed Vital Signs Vital Sign Reading [...] 08/13/2024 2:08 PM CDT Plan of Treatment Health Maintenance Due Date Last Done Comments Depression Screening 1940 Fall Risk Assessment 1940 Osteoporosis Screening-Bone Density Scan 1940 Hepatitis B Screening 02/10/1960 Well Visit 65+ 2007 DTaP/Tdap/Td Vaccine (2 - Td or Tdap) 03/30/2015 Zoster Vaccine (3 of 3) 06/07/2018 04/12/2018, 03/26 Influenza Vaccine (Season Ended) 2024 01/19/20 17 Pneumococcal vaccine 65+ Completed 01/28/2015, 01/14 Insurance MEDICARE [facility] MEDICARE [facility] [place] [address] MEDICARE [facility] Care Teams Digital Production Manager Relationship Specialty Start Date End Date Toni Tracey MD [address] [place] [address] PCP - General 02/29/16
== END 2024-08-14 12:59 | disposition home or self-care (01) ==
LOC: CHSIMG 13:01
PROVIDERS: PCP Internal Medicine; Visit Provider Internal Medicine
DX: I65.23 Occlusion and stenosis of bilateral carotid arteries (principal); Z78.0 Asymptomatic menopausal state; M85.89 Other specified disorders of bone density and structure, multiple sites
CPT/HCPCS: 77080; 93880

== ENCOUNTER 2024-08-21 16:37 | Outpatient (RCR) | payer MEDICARE, OTHER, SELFPAY ==
--- NOTE | 2024-08-21 17:52 | OPREHPOC ---
Outpatient Therapy Plan of Care This is a Multidisciplinary Plan of Care that may contain components documented by all disciplines (PT, OT, and ST.) PT Problem 1 PT Problem #1 Knowledge Deficit PT Goal 1 Goal / Goal Update Independent and compliant with HEP. Target Visit 2 PT Problem 2 PT Problem #2 Pain PT Goal 1 Goal / Goal Update Pt to report no more than 4/10 pain with activity. Target Visit 8 PT Problem 3 PT Problem #3 Impaired Strength PT Goal 1 Goal / Goal Update Pt to improve shoulder abduction strength to 4/5. Target Visit 8 PT Problem 4 PT Problem #4 Impaired Functional Mobility PT Goal 1 Goal / Goal Update Pt to report 30% or less disability on Quick DASH. Pt to report improved ability to put on jackets and wash her hair. Target Visit 8 PT Problem 5 PT Problem #5 Impaired Range of Motion PT Goal 1 Goal / Goal Update Pt to improve active R shoulder abduction ROM to 90 degrees. Target Visit 8
--- NOTE | 2024-08-21 17:52 | PTOPEVAL1 ---
Assessment and note entered by Laine Wong, PT Evaluation Information Assessment Status Evaluation ICD-10 Condition Codes (PT) Pain in right shoulder M25.511 Other ICD-10 Condition Codes ( M12.811 PT) Onset 01/15/2024 Subjective Information Pt reports she was given an order for physical therapy because she's going to have a reverse total shoulder surgery. She currently has no pain in the shoulder but states it gets to around a 2/ 10 when moving it. States she takes Motrin nightly . She is right handed and reports pain is produced by scrubbing floors, planting baltazar, putting on coats or jackets and washing her hair. Overall she is able to use her R arm slightly but uses her L arm primarily to assist. She does report getting an RCR years ago but MRI shows recurrent full-thickness tears. Reported Pain Level Pain Score 0: Self Report Assessment PT Clinical Summary Mrs. Comer is an 84 yo female who enters the clinic with R shoulder pain. R shoulder MRI from January 2024 shows recurrent full thickness rotator cuff tears and per pt's doctor she will undergo a reverse total shoulder arthroplasty following strengthening in PT. She demonstrates significant weakness of the rotator cuff and deltoid. Active R shoulder ROM is restricted due to mm weakness. Pt also has difficulty with cooking/cleaning, gardening, washing her hair and putting on jackets. She will benefit from skilled PT intervention to improve R shoulder strength to prepare for surgery. Plan of Care Interventions Electrical Stimulation,Hot Pack/Cold Pack,Manual Therapy,Neuro Re-education,Patient/Caregiver Education,Therapeutic Activities,Therapeutic Exercise,Self-Care/Home Management PT Services Indicated Yes Treatment Frequency and 2x/week for 8 visits Duration These treatments will address the objective and functional deficits as defined above. The patient will be advanced safely and appropriately in order for the patient to progress towards his/her prior level of function. Additional exercises will be introduced and as well as a comprehensive home exercise program upon discharge, if needed, ?to ensure carryover of functional gains achieved in the clinic. This treatment plan has been reviewed and agreement upon by the patient.
--- NOTE | 2024-09-23 16:38 | OPREHPOC ---
Outpatient Therapy Plan of Care This is a Multidisciplinary Plan of Care that may contain components documented by all disciplines (PT, OT, and ST.) PT Problem 1 PT Problem #1 Knowledge Deficit PT Goal 1 Goal / Goal Update Independent and compliant with HEP. Target Visit 2 Progress Met PT Problem 2 PT Problem #2 Pain PT Goal 1 Goal / Goal Update Pt to report no more than 4/10 pain with activity. Target Visit 8 Progress Met PT Problem 3 PT Problem #3 Impaired Strength PT Goal 1 Goal / Goal Update Pt to improve shoulder abduction strength to 4/5. Target Visit 8 Progress Not Met PT Problem 4 PT Problem #4 Impaired Functional Mobility PT Goal 1 Goal / Goal Update Pt to report 30% or less disability on Quick DASH. met Pt to report improved ability to put on jackets and wash her hair. unable Target Visit 8 Progress Partially Met PT Problem 5 PT Problem #5 Impaired Range of Motion PT Goal 1 Goal / Goal Update Pt to improve active R shoulder abduction ROM to 90 degrees. Target Visit 8 Progress Not Met
--- NOTE | 2024-09-23 16:38 | PTOPREEVAL ---
Assessment and note entered by JT File, PT Evaluation Information Assessment Status Re-evaluation ICD-10 Condition Codes (PT) Pain in right shoulder M25.511 Other ICD-10 Condition Codes ( M12.811 PT) Onset 01/15/2024 Subjective Information patient reports she is scheduled for surgery in november. she reports she has no pain today. she reports she is a bit worn out today from shopping. she reports she can complete her HEP independent. Reported Pain Level Pain Score 0: Self Report Assessment PT Clinical Summary mrs. newton presents to skilled PT for her 8th skilled PT visit for the R shoulder RTC tear and OA. she now has a date set for surgery in november. patient continues to display weakness and inability to perform functional tasks with the R UE such as reaching to shoulder or overhead level. she has made some progress and achievement of goals, but lacks achievement of rom and strength goals. patient will continue with HEP independent at home at this time. she will return to skilled PT after her shoulder replacement in november of this year. Plan of Care Interventions Electrical Stimulation,Hot Pack/Cold Pack,Manual Therapy,Neuro Re-education,Patient/Caregiver Education,Therapeutic Activities,Therapeutic Exercise,Self-Care/Home Management PT Services Indicated Yes Treatment Frequency and hold therapy until post-op Duration These treatments will address the objective and functional deficits as defined above. The patient will be advanced safely and appropriately in order for the patient to progress towards his/her prior level of function. Additional exercises will be introduced and as well as a comprehensive home exercise program upon discharge, if needed, ?to ensure carryover of functional gains achieved in the clinic. This treatment plan has been reviewed and agreement upon by the patient.
== END 2024-11-19 23:59 | disposition home or self-care (01) ==
LOC: CHSPT 16:37
PROVIDERS: Visit Provider Orthopaedic Surgery
DX: M12.811 Other specific arthropathies, not elsewhere classified, right shoulder (principal)
CPT/HCPCS: 97110; 97112; 97161

== ENCOUNTER 2024-09-23 08:59 | Outpatient (CLI) | payer MEDICARE, SELFPAY ==
--- OUTSIDE RECORDS SUMMARY | 2024-09-23 09:24 | XMS_ITS | Encounter Summary ---
Author Organization [facility] Healthcare Address [address] [place] [address] Care Team Providers Care Licensed Funeral Director And Embalmer Name Role Phone Toni Tracey MD Primary Care Provider [phone] Encounter Details Date Type Department Care Team (Late st Contact Info) Description 08/14/2024 Telephone [facility] Medical Group Orthopedic and Sports Medicine [address] [place] [phone] Golden Rosenbaum MD [address] [place] [address] [address] CORN[address]IUS [address] [address] Social History Tobacco Use Types Packs/Day Years [...] on file 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 * Telephone Encounter - Jodi Cabrera - 09/19/2024 11:55 AM CDT Patient left voicemail. She states she is on her last PT and would like to schedule her shoulder surgery. Preferred callback number: [phone]. * Telephone Encounter - Pam Garcia MA [...] [x] No Preferred Outpatient Physical Therapy location: [facility] Reviewed with patient surgery clearance requirements that [...] questions or concerns arise prior to surgery. JOAN/ATC Name: Homero Adams ATC documented in this encounter Plan of Treatment Not on file documented as of this encounter Visit Diagnoses Not on filedocumented in this encounter Care Teams Licensed Funeral Director And Embalmer Relationship Specialty Start Date End Date Toni Tracey MD [address] [place] [address] PCP - General 02/29/16 documented as of this encounter
--- OUTSIDE RECORDS SUMMARY | 2024-09-23 09:24 | XMS_ITS | Clinical Summary ---
Author Organization [facility] Address [address] [place] [address] Care Team Providers Care Bench Machine Operator Name Role Phone Toni Tracey MD Primary Care Provider Allergies No known active allergies Medications ALPRAZolam (XANAX) 0.25 mg tablet prn 0 0 4 Active triamterene-hyd roCHLOROthiazid e (MAXZIDE,DYAZID E) 37.5-25 mg per tablet take 1 tablet by oral route every day 0 0 4 Active multivitamin capsule 0 0 4 Active CYANOCOBALAMIN/ FOLIC ACID (VITAMIN F50-FTBPX ACID) 1,000-400 mcg tablet, sublingual 0 0 [...] Department Care Team Description 08/14/2024 Orders Only [facility] Medical Group Orthopedics and Sports Medicine [address] [place] [address] [address] [place] [phone] Golden Rosenbaum MD Rotator cuff arthropathy of right shoulder (Primary Dx) 08/14/2024 Telephone [facility] Orthopedics and Sports Medicine [address] [place] [address] [address] [place] [phone] Golden Rosenbaum MD 08/14/2024 Orders Only [facility] Medical Group Orthopedic and Sports Medicine [address] [place] [phone] Golden Rosenbaum MD S/P reverse total shoulder arthroplasty, right (Primary Dx) 08/14/2024 Orders Only [facility] Group Orthopedic and Sports Medicine [address] [place] [phone] Golden Rosenbaum MD Rotator cuff arthropathy of right shoulder (Primary Dx) 08/14/2024 Telephone [facility] Group Orthopedic and Sports Medicine [address] [place] [phone] Golden Rosenbaum MD 08/14/2024 Orders Only [facility] Medical [facility] Orthopedic and Sports Medicine [address] [place] [phone] Golden Rosenbaum MD Rotator cuff arthropathy of right shoulder (Primary Dx); Encounter for screening for diabetes mellitus 08/13/2024 1:45 PM CDT Office Visit [facility] Orthopedic and Sports Medicine [address] [place] [phone] Golden Rosenbaum MD Rotator cuff arthropathy of right shoulder (Primary Dx) 07/04/2024 1:15 PM CDT Office Visit [facility] Orthopedics and Sports Medicine [address] [place] [address] [place] [phone] Burak Mari NP Rotator cuff arthropathy, right [...] on file 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
--- OUTSIDE RECORDS SUMMARY | 2024-09-23 09:24 | XMS_ITS | Clinical Summary ---
Author Organization [facility] Address [address] [place] [address] Care Team Providers Care Wind Turbine Mechanical Engineer Name Role Phone Unavailable Primary Care Provider Unavailabl e Source Comments [facility],non-owned Affiliates and Associated Physician Practices is amultiple site organization consisting of ambulatory clinics and hospital sitesin [place], [place], [place] and [place]. This disclosure is being madepursuant to the Care Everywhere program and may not contain all information available regarding this patient. Last updated 18.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
--- OUTSIDE RECORDS SUMMARY | 2024-09-23 09:24 | XMS_ITS | Referral Summary ---
Author Organization [facility] Address [address] [place] [address] Care Team Providers Care Director Of Early Childhood Education Name Role Phone Toni Tracey MD Primary Care Provider [phone] Encounters Date Type Department Care Team Description 08/14/2024 Orders Only [facility] Medical Group Orthopedics and Sports Medicine [address] [place] [address] [address] [place] [phone] Golden Rosenbaum MD Rotator cuff arthropathy of right shoulder (Primary Dx) 08/14/2024 Telephone [facility] Orthopedics and Sports Medicine [address] [place] [address] [address] [place] [address] Golden Rosenbaum MD 08/14/2024 Orders Only [facility] Medical Group Orthopedic and Sports Medicine [address] [place] [phone] Golden Rosenbaum MD S/P reverse total shoulder arthroplasty, right (Primary Dx) 08/14/2024 Orders Only [facility] Orthopedic and Sports Medicine [address] [place] [phone] Golden Rosenbaum MD Rotator cuff arthropathy of right shoulder (Primary Dx) 08/14/2024 Telephone [facility] Orthopedic and Sports Medicine [address] [place] [phone] Golden Rosenbaum MD 08/14/2024 Orders Only [facility] Medical [facility] Orthopedic and Sports Medicine [address] [place] [phone] Golden Rosenbaum MD Rotator cuff arthropathy of right shoulder (Primary Dx); Encounter for screening for diabetes mellitus 08/13/2024 1:45 PM CDT Office Visit [facility] Orthopedic and Sports Medicine [address] [place] [phone] Golden Rosenbaum MD Rotator cuff arthropathy of right shoulder (Primary Dx) 07/04/2024 1:15 PM CDT Office Visit [facility] Orthopedics and Sports Medicine [address] [place] [address] [address], [place] [address] Burak Mari NP Rotator cuff arthropathy, right (Primary Dx) from Last 3 Months Allergies No known active allergies Medications ALPRAZolam (XANAX) 0.25 mg tablet prn 0 0 4 Active triamterene-hyd roCHLOROthiazid e (MAXZIDE,DYAZID E) 37.5-25 mg per tablet take 1 tablet by oral route every day 0 0 4 Active multivitamin capsule 0 0 4 Active CYANOCOBALAMIN/ FOLIC ACID (VITAMIN Y91-AJZRO ACID) 1,000-400 mcg tablet, sublingual 0 0 [...] on file 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
--- OUTSIDE RECORDS SUMMARY | 2024-09-23 09:24 | XMS_ITS | Encounter Summary ---
Author Organization [facility] Healthcare Address [address] [place] [address] Care Team Providers Care Peoplesoft Hcm Consultant Name Role Phone Toni Tracey MD Primary Care Provider Encounter Details Date Type Department Care Team ([facility] st Contact Info) Description 12/16/2019 Telephone [facility] [address] [place] [address] Transcribed Order, Provider Social History Tobacco Use Types Packs/Day Years Used Date Smoking Tobacco: Never Smokeless Tobacco: Never Comments No Sex and Gender Information Value Date Recorded Sex Assigned at Not on file 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
--- OUTSIDE RECORDS SUMMARY | 2024-09-23 09:24 | XMS_ITS | CONTINUITY OF CARE DOCUMENT ---
Author Name reyes chambers Address Unknown Organization [facility] Address [address] [place] [address] [address] [place] [address] Phone [phone] Care Team Providers Care Managing Principal Name Role Phone reyes chambers Unavailable Unavailable
[2024-09-23 09:32] LABS: Hematocrit 41.5 % (35.0-42.0); Hemoglobin 13.5 g/dL (11.7-13.8); Mean Corpuscular HGB Conc 32.5 g/dL (32-36); Mean Corpuscular Hemoglobin 28.8 pg (27.0-31.0); Mean Corpuscular Volume 88.5 fL (78.0-102.0); Mean Platelet Volume 8.8 fl (9.2-11.8); Platelet Count Result 380 K/mm3 (150-420); Red Blood Count 4.69 M/mm3 (4.20-5.40); White Blood Count 7.6 K/mm3 (4.8-10.8)
[2024-09-23 09:42] LABS: Add Urine Microscopic? NO; Appearance Urine Clear (Clear); Bilirubin Urine Negative (Negative); Blood Urine Negative (Negative); Color Urine Light Yellow (Yellow); Glucose Urine UA Negative (Negative); Ketones Urine Negative (Negative); Leukocyte Esterase Ur Negative LEU/UL (Negative); Nitrate Urine Negative (Negative); Protein Urine Negative (Negative); Specific Grav Ur <= 1.005 (1.010-1.020); Urobilinogen Urine 0.2 mg/dL (0.2-1.0); pH Urine 6.5 (5.0-8.0)
[2024-09-23 10:23] LABS: Hemoglobin A1C 5.6 % (<5.7)
[2024-09-23 10:26] LABS: Alanine Aminotransferase 73 U/L (6-35); Albumin Level 4.3 g/dL (3.5-5.1); Alkaline Phosphatase 225 U/L (38-126); Anion Gap 5 mmol/L (4-12); Aspartate Amino Transferase 64 U/L (14-36); Bilirubin,Total 0.9 mg/dL (0.2-1.3); Blood Urea Nitrogen 15 mg/dL (7-17); Carbon Dioxide 28 mmol/L (22-30); Chloride 99 mmol/L (98-107); Cholesterol 142 mg/dL (0-200); Creatine Kinase 132 U/L (30-135); Estimated Glomerular Filt Rate > 60; Glucose 89 mg/dL (65-110); HDL Direct 57 mg/dL; LDL Cholesterol Calculated 58 mg/dL (<130); Osmolality Calculated 273 mOsm/kg (285-295); Potassium 4.6 mmol/L (3.4-5.0); Sodium 132 mmol/L (137-145); Total Protein 6.3 g/dL (6.3-8.2); Triglycerides 136 mg/dL (<150)
[2024-09-23 10:40] LABS: Free T4 Free Thyroxine 1.26 ng/dL (0.78-2.19)
== END 2024-09-23 09:00 | disposition home or self-care (01) ==
LOC: CHSLAB 09:02
PROVIDERS: PCP Internal Medicine; Visit Provider Internal Medicine
DX: R74.8 Abnormal levels of other serum enzymes (principal); I10 Essential (primary) hypertension; E87.1 Hypo-osmolality and hyponatremia; E04.1 Nontoxic single thyroid nodule; R73.01 Impaired fasting glucose
CPT/HCPCS: 36415; 80053; 80061; 81003; 82550; 83036; 84439; 84443; 85027

== ENCOUNTER 2024-09-30 12:18 | Outpatient (CLI) | payer MEDICARE, OTHER, SELFPAY ==
--- NOTE | 2024-09-30 | S_PTH ---
PATIENT: Julia Comer LOC: [facility]#:[id number] AGE/SX: 84/F ROOM: RE09/30/[address]: Ken Escobar M.D. : 1940 BED: DIS: 09/30/2024 SPEC #: [id number] RECD: 09/30/24 17:33 STATUS: ROSHAN REQ #: [id number] YOBANI: 09/30/24 00:[address]: Ken Escobar DEPT: [facility] Surgical RECD BY: Karin Abdul MLT, ([facility]) ENTERED: 09/30/24 17:33 SP TYPE: Surgical OTHR DR: Toni Tracey MD Tissues: A - Skin Bx B - Skin Bx Procedures: Hematoxylin and Eosin Stain Gross and Microscopic Level 4
--- OUTSIDE RECORDS SUMMARY | 2024-09-30 12:52 | XMS_ITS | Encounter Summary ---
Author Organization [facility] Healthcare Address [address] [place] [address] Care Team Providers Care Supervisor Winter Name Role Phone Toni Tracey MD Primary Care Provider [phone] Encounter Details Date Type Department Care Team ([facility] st Contact Info) Description 12/16/2019 Telephone [facility] - Imaging [address] [place] [address] Transcribed Order, Provider Social History Tobacco Use Types Packs/Day Years Used Date Smoking Tobacco: Never Smokeless Tobacco: Never Comments No Sex and Gender Information Value Date Recorded Sex Assigned at Not on file 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
--- OUTSIDE RECORDS SUMMARY | 2024-09-30 12:52 | XMS_ITS | CONTINUITY OF CARE DOCUMENT ---
Author Name reyes chambers Address Unknown Organization [facility] Address [id number] [place] [address] [address] [place] [address] Phone [phone] Care Team Providers Care Director Of Income Tax Name Role Phone reyes chambers Unavailable Unavailable
--- OUTSIDE RECORDS SUMMARY | 2024-09-30 12:52 | XMS_ITS | Clinical Summary ---
Author Organization [facility] Address [address] [facility] [place] [address] Care Team Providers Care Consulting Engineer Name Role Phone Unavailable Primary Care Provider Unavailabl e Source Comments [facility],non-owned Affiliates and Associated Physician Practices is amultiple site organization consisting of ambulatory clinics and hospital sitesin [place], [place], [place] and [place]. This disclosure is being madepursuant to the Care Everywhere program and may not contain all information available regarding this patient. Last updated 18.[facility] Social History Tobacco Use Types Packs/Day Years Used Date Smoking Tobacco: Never Assessed Comments Unknown Sex and Gender Information Value Date Recorded Sex Assigned at Not on file Legal Sex Female 6:17 AM PUBLIC INFORMATION DIRECTOR Gender Identity Not on file Sexual [...] age to complete this topic Insurance MEDICARE [facility]
--- OUTSIDE RECORDS SUMMARY | 2024-09-30 12:52 | XMS_ITS | Referral Summary ---
Author Organization [facility] Address [address] [place] [address] Care Team Providers Care Sanding Supervisor Name Role Phone Toni Tracey MD Primary Care Provider Encounters Date Type Department Care Team Description 09/30/[address] [facility] Orthopedics and Sports Medicine [address] [place] [address] [address] [address] Ceci Brown MA 08/14/[address] [facility] Medical [facility] [address] [place] [address] [place] [phone] Golden Rosenbaum MD Rotator cuff arthropathy of right shoulder (Primary Dx) 08/14/[address] [facility] Medical [facility] [address] [place] [address] [address] [address] Golden Rosenbaum MD 08/14/[address] [facility] Orthopedic and Sports Medicine [address] [place] [phone] Golden Rosenbaum MD S/P reverse total shoulder arthroplasty, right (Primary Dx) 08/14/[address] [facility] Orthopedic and Sports Medicine [address] [place] [phone] Golden Rosenbaum MD Rotator cuff arthropathy of right shoulder (Primary Dx) 08/14/[address] [facility] Medical [facility] [address] [place] [phone] Golden Rosenbaum MD 08/14/2024 Orders Only [facility] Orthopedic and Sports Medicine [address] [place] [phone] Golden Roesnbaum MD Rotator cuff arthropathy of right shoulder (Primary Dx); Encounter for screening for diabetes mellitus 08/13/2024 1:45 PM CDT Office Visit [facility] Orthopedic and Sports Medicine [address] [place] [phone] Golden Rosenbaum MD Rotator cuff arthropathy of right shoulder (Primary Dx) 07/04/2024 1:15 PM CDT Office Visit 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
--- OUTSIDE RECORDS SUMMARY | 2024-09-30 12:52 | XMS_ITS | Encounter Summary ---
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 Confirmation fax received documented in this encounter Plan of Treatment Not on file documented as of this encounter Visit Diagnoses Not on filedocumented in this encounter Care Teams Occupational Psychologist Relationship Specialty Start Date End Date Toni Tracey MD [address] [place] [address] PCP - General 02/29/16 documented as of this encounter
--- OUTSIDE RECORDS SUMMARY | 2024-09-30 12:52 | XMS_ITS | Clinical Summary ---
Author Organization [facility] Address [address] [place] [address] Care Team Providers Care Photographic Developer And Printer Name Role Phone Toni Tracey MD Primary Care Provider Allergies No known active allergies Medications ALPRAZolam (XANAX) 0.25 mg tablet prn 0 0 4 Active triamterene-hyd roCHLOROthiazid e (MAXZIDE,DYAZID E) 37.5-25 mg per tablet take 1 tablet by oral route every day 0 0 4 Active multivitamin capsule 0 0 4 Active CYANOCOBALAMIN/ FOLIC ACID (VITAMIN S62-VAJKE ACID) 1,000-400 mcg tablet, sublingual 0 0 [...] Type Department Care Team Description 09/30/2024 Documentation [facility] Medical Group Orthopedics and Sports Medicine [address] [place] [address] [address] [place] [phone] Ceci Brown MA 08/14/2024 Orders Only [facility] Orthopedics and Sports Medicine [address] [place] [address] [address] [place] [phone] Golden Rosenbaum MD Rotator cuff arthropathy of right shoulder (Primary Dx) 08/14/2024 Telephone [facility] Orthopedics and Sports Medicine [address] [place] [address] [address] [place] [phone] Golden Rosenbaum MD 08/14/2024 Orders Only [facility] Orthopedic and Sports Medicine [address] [place] [phone] Golden Rosenbaum MD S/P reverse total shoulder arthroplasty, right (Primary Dx) 08/14/2024 Orders Only [facility] Orthopedic and Sports Medicine [address] [place] [phone] Golden Rosenbaum MD Rotator cuff arthropathy of right shoulder (Primary Dx) 08/14/2024 Telephone [facility] Orthopedic and Sports Medicine [address] [place] [phone] Golden Rosenbaum MD 08/14/2024 Orders Only [facility] Orthopedic and Sports Medicine [address] [place] [phone] Golden Rosenbaum MD Rotator cuff arthropathy of right shoulder (Primary Dx); Encounter for screening for diabetes mellitus 08/13/2024 1:45 PM CDT Office Visit [facility] Orthopedic and Sports Medicine [address] [place] [phone] Golden Rosenbaum MD Rotator cuff arthropathy of right shoulder (Primary Dx) 07/04/2024 1:15 PM CDT Office Visit [facility] Orthopedics and Sports Medicine [address] [place] [address] [address], [place] [address] Burak Mari NP Rotator cuff [...] on file 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
== END 2024-09-30 12:19 | disposition home or self-care (01) ==
LOC: CHSLAB 12:21
PROVIDERS: PCP Internal Medicine; Visit Provider Specialist
DX: D48.5 Neoplasm of uncertain behavior of skin (principal)
CPT/HCPCS: 88305

== ENCOUNTER 2024-10-31 10:13 | Outpatient (CLI) | payer MEDICARE, OTHER, SELFPAY ==
--- OUTSIDE RECORDS SUMMARY | 2024-10-31 10:16 | XMS_ITS | Referral Summary ---
Author Organization [facility] Address [address] [place] [address] Care Team Providers Care C D Reactor Operator Name Role Phone Toni Tracey MD Primary Care Provider Encounters Date Type Department Care Team Description 10/27/2024 10:55 AM CDT Lab [address] [address] Rotator cuff arthropathy of right shoulder; Encounter for screening for diabetes mellitus 10/27/2024 10:53 AM CDT - 10/27/2024 11:59 PM CDT Hospital Encounter [facility] [address] [place] [address] Rotator cuff arthropathy of right shoulder Discharge Disposition: Discharge to home or self care 10/27/2024 10:52 AM CDT - 10/27/2024 11:59 PM CDT Hospital Encounter [facility] [address] [place] [address] Rotator cuff arthropathy of right shoulder Discharge Disposition: Discharge to home or self care 09/30/2024 Documentation [facility] [address] [place] [address] [address] [place] [phone] Ceci Brown MA 08/14/2024 Orders Only [facility] [address] [place] [address] [address] [place] [phone] Golden Rosenbaum MD Rotator cuff arthropathy of right shoulder (Primary Dx) 08/14/2024 Telephone [facility] Medicine [address] [facility] [address] [place] [address] Golden Rosenbaum MD 08/14/2024 Orders Only [facility] [address] [place] [phone] Golden Rosenbaum MD S/P reverse total shoulder arthroplasty, right (Primary Dx) 08/14/2024 Orders Only [facility] [address] [place] [phone] Golden Rosenbaum MD Rotator cuff arthropathy of right shoulder (Primary Dx) 08/14/2024 Telephone [facility] [address] [place] [phone] Golden Rosenbaum MD 08/14/2024 Orders Only [facility] [address] [place] [phone] Golden Rosenbaum MD Rotator cuff arthropathy of right shoulder (Primary Dx); Encounter for screening for diabetes mellitus 08/13/2024 1:45 PM CDT Office Visit [facility] Medicine [address] [place] [phone] Golden Rosenbaum MD Rotator cuff arthropathy of right shoulder (Primary Dx) from Last 3 Months Allergies No known active allergies Medications ALPRAZolam (XANAX) 0.25 mg tablet prn 0 0 4 Active triamterene-hyd roCHLOROthiazid e (MAXZIDE,DYAZID E) 37.5-25 mg per tablet take 1 tablet by oral route every day 0 0 4 Active multivitamin capsule 0 0 4 Active CYANOCOBALAMIN/ FOLIC ACID (VITAMIN Q34-VWDCC ACID) 1,000-400 mcg tablet, sublingual 0 0 [...] on file 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 Gender Identity Not on file Sexual Orientation [...] CDT Plan of Treatment Not on file Procedures Procedure Name Priority Date/Time Associated Diagnosis Comments URINALYSIS AND REFLEX TO MICROSCOPIC AND CULTURE Routine 10/27/2024 11:39 AM CDT Rotator cuff arthropathy of right shoulder ECG 12-LEAD Routine 10/27/2024 11:38 AM CDT Rotator cuff arthropathy of right shoulder EGFR Routine 10/27/2024 11:00 AM CDT Rotator cuff arthropathy of right shoulder DIFFERENTIAL AUTO Routine 10/27/2024 11: 00 AM CDT Rotator cuff arthropathy of right shoulder HEMOGLOBIN A1C Routine 10/27/2024 11:00 AM CDT Rotator cuff arthropathy of right shoulder Encounter for screening for diabetes mellitus COMPREHENSIVE METABOLIC PANEL Routine 10/27/2024 11:00 AM CDT Rotator cuff arthropathy of right shoulder CBC WITH AUTO DIFFERENTIAL Routine 10/27/2024 11:00 AM CDT Rotator cuff arthropathy of right shoulder from Last 3 Months Results * Urinalysis reflex to microscopic and culture Urine, clean voided (10/27/2024 11:39 AM CDT) Color, ur Yellow Yellow Clarity, ur Clear Clear [facility] ([place]) Specific gravity, ur 1.008 1.003 - 1.030 [facility] ([place]) pH, urine 6.0 [facility] ([place]) Comment: Interpretive Data U rine pH is affected by diet, medications, systemic acid-base disturbances, and renal tubular function. pH may affect urinary stone formation. For example, urine pH below 6.0 may help reduce the tendency for calcium phosphate stones and pH greater than 6.0 may reduce the tendency for uric acid stone formation. Source: [facility] Current Interpretive Data was last revised on 2017 Protein, ur ql Negative Negative [facility] ([place]) Glucose, ur ql Negative Negative [facility] ([place]) Ketones, ur Negative Negative [facility] ([place]) Bilirubin, ur Negative Negative [facility] ([place]) Blood, ur Negative Negative [facility] ([place]) Urobilinogen, ur <2.0 <2.0 mg/dL [facility] ([place]) Nitrite, ur Negative Negative [facility] ([place]) Leukocyte esterase, ur Negative Negative [facility] ([place]) UA reflex comment Reflex conditions for microscopic UA and culture not met. [facility] ([place]) Urine, clean voided 10/27/2024 11:39 AM CDT 10/27/2024 11:39 AM CDT Golden Rosenbaum MD LAB MICROBIOLOGY - GENERAL O RDERABLES Final Result [facility] ([place]) [address] [facility] Department [place] [address] * ECG 12 lead (10/27/2024 11:38 AM CDT) 10/27/2024 11:3 5 AM CDT Narrative [facility] - 10/27/2024 12:52 PM CDT Vent Rate: 76 bpm RR Interval: 785 msec TN Interval: 162 msec QRS Duration: 87 msec QT Interval: 360 msec QTC Interval: 390 msec P-R-T [place]: 13 - -38 - 63 degrees IMPRESSION: SINUS RHYTHM WITH SINUS ARRHYTHMIA LEFT AXIS DEVIATION [QRS AXIS < -30] ABNORMAL ECG Electronically Signed By: Manuel Maxwell MD us Golden Rosenbaum MD ECG ORDERABLES Final Result [facility] * eGFR (10/27/2024 11:00 AM CDT) eGFR 75 >=60 mL/min/1. 73 m2 Comment: Interpretive Data Reference Interval Normal >/= 90 mL/min/1.73m2 Mildly decreased* 60 - 89 mL/min/1.73m2 Mildly to moderately decreased 45 - 59 mL/min/1.73m2 Moderately to severely decreased 30 - 44 mL/min/1.73m2 Severely decreased 15 - 29 mL/min/1.73m2 Kidney Failure < 15 mL/min/1.73m2 *Relative to young adult level Estimated glomerular filtration rate is determined by the 2020 CKD-EPI equation recommended by the National Kidney Foundation (A Unifying Approach to GFR Estimation: Recommendations of the NKF-ASK Task Force on Reassessing the Inclusion of Race in Diagnosing Kidney Disease, JASN 2020). The CKD-EPI equation should not be used for patients with unstable renal function and has not been validated in children and those over 70. Current interpretive data was last reviewed 2021. Blood 10/27/2024 11:0 0 AM CDT 10/27/2024 11:34 AM CDT Golden Rosenbaum MD LAB BLOOD ORDERABLES Final R esult [facility] ([place]) [address] [facility] Department [place] [address] * (ABNORMAL) Differential, auto (10/27/2024 11:00 AM CDT) Neutrophil abs 6.19 1.50 - 6.50 K/cumm Imm gran abs 0.04 0.00 - 0.10 K/cumm [facility] ([place]) Lymphocyte abs 2.47 0.80 - 3.30 K/cumm [facility] ([place]) Monocyte abs 0.93(H) 0.20 - 0.80 K/cumm [facility] ([place]) Eosinophil abs 0.04 0.00 - 0.50 K/cumm [facility] ([place]) Basophil abs 0.02 0.00 - 0.10 K/cumm [facility] ([place]) Neutrophil pct 63.9 % [facility] ([place]) Comment: Interpretive Data Percent cell count reference ranges are not reported, since discordance with absolute values may lead to misinterpretation of CBC data. Current Interpretive Data was last revised on 2017. Imm gran pct 0.4 % [facility] ([place]) Comment: Interpretive Data Percent cell count reference ranges are not reported, since discordance with absolute values may lead to misinterpretation of CBC data. Current Interpretive Data was last revised on 2017. Lymphocyte pct 25.5 % [facility] ([place]) Comment: Interpretive Data Percent cell count reference ranges are not reported, since discordance with absolute values may lead to misinterpretation of CBC data. Current Interpretive Data was last revised on 2017. Monocyte pct 9.6 % [facility] ([place]) Comment: Interpretive Data Percent cell count reference ranges are not reported, since discordance with absolute values may lead to misinterpretation of CBC data. Current Interpretive Data was last revised on 2017. Eosinophil pct 0.4 % [facility] ([place]) Comment: Interpretive Data Percent cell count reference ranges are not reported, since discordance with absolute values may lead to misinterpretation of CBC data. Current Interpretive Data was last revised on 2017. Basophil pct 0.2 % [facility] ([place]) Comment: Interpretive Data Percent cell count reference ranges are not reported, since discordance with absolute values may lead to misinterpretation of CBC data. Current Interpretive Data was last revised on 2017. Blood 10/27/2024 11:0 0 AM CDT 10/27/2024 11:34 AM CDT us Golden Rosenbaum MD LAB BLOOD ORDERABLES Final R esult [facility] ([place]) [address] [facility] Department [place] [address] * CBC with auto differential (10/27/2024 11:00 AM CDT) WBC 9.69 3.80 - 9.90 K/cumm Hgb 12.9 11.9 - 15.5 g/dL [facility] ([place]) Hct 39.7 35.6 - 45.5 % [facility] ([place]) Plt 286 150 - 400 K/cumm [facility] ([place]) MPV 9.4 9.1 - 12.3 fL [facility] ([place]) RBC 4.43 3.90 - 5.20 M/cumm [facility] ([place]) MCV 89.6 81.3 - 96.4 fL [facility] ([place]) MCH 29.1 27.1 - 33.3 pg [facility] ([place]) MCHC 32.5 32.3 - 35.7 g/dL [facility] ([place]) RDW CV 13.5 11.1 - 14.9 % [facility] ([place]) RDW SD 44.5 35.7 - 48.1 fL [facility] ([place]) NRBC abs 0.00 0.00 - 0.01 K/cumm [facility] ([place]) Blood 10/27/2024 11:0 0 AM CDT 10/27/2024 11:34 AM CDT us Golden Rosenbaum MD LAB BLOOD ORDERABLES Final R esult [facility] ([place]) [address] [facility] Department [place] [address] * Hemoglobin A1c (10/27/2024 11:00 AM CDT) Hgb A1C 5.6 4.0 - 5.6 % Estimated Average Glucose 114 mg/dL [facility] ([place]) Comment: The ADA recommends reporting an estimated Average Glucose (eAG) with all Hemoglobin A1c results using the equation derived from a study of 507 normal and diabetic adults. Minority populations were underrepresented and children were not included. (Diabetes Care 31:5969-9056, 2008). The eAG is not equivalent to a fasting glucose. Blood 10/27/2024 11:0 0 AM CDT 10/27/2024 11:34 AM CDT us Golden Rosenbaum MD LAB BLOOD ORDERABLES Final R esult [facility] ([place]) [address] [facility] Department [place] [address] * (ABNORMAL) Comprehensive metabolic panel (10/27/2024 11:00 AM CDT) Sodium 135 135 - 145 mmol/L Potassium, pl 4.4 3.3 - 4.9 mmol/L [facility] ([place]) Chloride 96(L) 97 - 110 mmol/L [facility] ([place]) CO2 25 22 - 32 mmol/L [facility] ([place]) Anion gap 15 2 - 15 mmol/L [facility] ([place]) BUN 15 6 - 25 mg/dL [facility] ([place]) Creatinine 0.79 0.60 - 1.10 mg/dL [facility] ([place]) Glucose 71 70 - 199 mg/dL [facility] ([place]) Comment: Interpretive Data Fasting glucose >/= 126 mg/dl is diagnostic for diabetes. Fasting is defined as no caloric intake for at least 8 hours. Fasting glucose between 100 mg/dl to 125 mg/dl is diagnostic of prediabetes. In a patient with classic symptoms of hyperglycemia or hyperglycemic crisis, a random glucose >/= 200 mg/dl is diagnostic for diabetes. In the absence of unequivocal hyperglycemia, results should be confirmed by repeat testing. The classification and Diagnosis of Diabetes Diabetes Care 2021; 46: S19-S40. Current interpretive data was last revised 2022. Calcium 9.4 8.5 - 10.3 mg/dL [facility] ([place]) Bilirubin, total 0.8 0.1 - 1.2 mg/dL [facility] ([place]) Protein, pl 6.6 6.5 - 8.5 g/dL [facility] ([place]) Albumin 4.4 3.5 - 5.0 g/dL [facility] ([place]) Alk phos 286(H) 40 - 130 Units/L [facility] ([place]) ALT 61(H) 7 - 45 Units/L [facility] ([place]) AST 60(H) 10 - 45 Units/L [facility] ([place]) Blood 10/27/2024 11:0 0 AM CDT 10/27/2024 11:34 AM CDT Golden Rosenbaum MD LAB BLOOD ORDERABLES Final R esult [facility] ([place]) [address] [facility] Department [place] [address] from Last 3 Months Insurance MEDICARE [facility] [place] [id number] MEDICARE [facility] MEDICARE [facility] Care Teams C D Reactor Operator Relationship Specialty Start Date End Date Toni Tracey MD [address] [place] [address] PCP - General 02/29/16
--- OUTSIDE RECORDS SUMMARY | 2024-10-31 10:16 | XMS_ITS | Encounter Summary ---
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
--- OUTSIDE RECORDS SUMMARY | 2024-10-31 10:16 | XMS_ITS | Clinical Summary ---
Author Organization [facility] Address [facility] [place] [address] Care Team Providers Care Dog Boarder Name Role Phone Unavailable Primary Care Provider [...]
--- OUTSIDE RECORDS SUMMARY | 2024-10-31 10:16 | XMS_ITS | Clinical Summary ---
Author Organization [facility] Address [address] [place] [address] Care Team Providers Care Hot Dog Vender Name Role Phone Unavailable Primary Care Provider Unavailabl e Source Comments [facility],non-owned Affiliates and Associated Physician Practices is amultiple site organization consisting of ambulatory clinics and hospital sitesin [place], [place], [place] and [place]. This disclosure is being madepursuant to the Care Everywhere program and may not contain all information available regarding this patient. 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
--- OUTSIDE RECORDS SUMMARY | 2024-10-31 10:16 | XMS_ITS | Clinical Summary ---
Author Organization [facility] Address [address] [place] [address] Care Team Providers Care Paper Testing Supervisor Name Role Phone Toni Tracey MD Primary Care Provider Allergies No known active allergies Medications ALPRAZolam (XANAX) 0.25 mg tablet prn 0 0 4 Active triamterene-hyd roCHLOROthiazid e (MAXZIDE,DYAZID E) 37.5-25 mg per tablet take 1 tablet by oral route every day 0 0 4 Active multivitamin capsule 0 0 4 Active CYANOCOBALAMIN/ FOLIC ACID (VITAMIN X96-BCIXT ACID) 1,000-400 mcg tablet, sublingual 0 0 [...] Team Description 10/27/2024 10:55 AM CDT Lab [facility] [address] [place] [address] Rotator cuff arthropathy of right shoulder; Encounter for screening for diabetes mellitus 10/27/2024 10:53 AM CDT - 10/27/2024 11:59 PM T Hospital Encounter [facility] [address] [place] [address] Rotator cuff arthropathy of right shoulder Discharge Disposition: Discharge to home or self care 10/27/2024 10:52 AM CDT - 10/27/2024 11:59 PM T Hospital Encounter [facility] [address] [place] [address] Rotator cuff arthropathy of right shoulder Discharge Disposition: Discharge to home or self care 09/30/2024 Documentation [facility] Medical [facility] Orthopedics and Sports Medicine [address] [place] [address] [address] [place] [address] Ceci Brown MA 08/14/2024 Orders Only [facility] Orthopedics and Sports Medicine [address] [place] [address] [address] [place] [address] Golden Rosenbaum MD Rotator cuff arthropathy of right shoulder (Primary Dx) 08/14/2024 Telephone [facility] Orth[facility]ics and Sports Medicine [address] [facility] [address] [place] [phone] Golden Rosenbaum MD 08/14/2024 Orders Only [facility] [address] [place] [phone] Golden Rosenbaum MD S/P reverse total shoulder arthroplasty, right (Primary Dx) 08/14/2024 Orders Only [facility] [address] [place] [phone] Golden Rosenbaum MD Rotator cuff arthropathy of right shoulder (Primary Dx) 08/14/2024 Telephone [facility] [address] [place] [phone] Golden Rosenbaum MD 08/14/2024 Orders Only [facility] [address] [place] [phone] Golden Rosenbaum MD Rotator cuff arthropathy of right shoulder (Primary Dx); Encounter for screening for diabetes mellitus 08/13/2024 1:45 PM CDT Office Visit [facility] [address] [place] [phone] Golden Rosenbaum MD Rotator cuff arthropathy of right shoulder (Primary Dx) from Last 3 Months Surgical [...] on file 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 Source: [email or web address] Current Interpretive Data was last revised on [...] 11:39 AM CDT 10/27/2024 11:39 AM CDT us Golden Rosenbaum MD LAB MICROBIOLOGY - GENERAL O RDERABLES Final Result [facility] ([place]) [address] [facility] [place] [address] * ECG 12 lead (10/27/2024 11:38 AM CDT) 10/27/2024 11:3 5 AM CDT Narrative [facility] - 10/27/2024 12:52 PM CDT Vent Rate: 76 bpm RR Interval: 785 msec [place] Interval: 162 msec QRS Duration: 87 msec QT Interval: 360 msec QTC Interval: 390 msec P-R-T [place]: 13 - -38 - 63 degrees IMPRESSION: SINUS RHYTHM WITH SINUS ARRHYTHMIA LEFT AXIS DEVIATION [QRS AXIS < -30] ABNORMAL ECG Electronically Signed By: Manuel Maxwell MD Golden Rosenbaum MD ECG ORDERABLES Final Result [facility] * eGFR (10/27/2024 11:00 AM CDT) eGFR [...] of Race in Diagnosing Kidney Disease, JASN 202). The CKD-EPI equation should not be used for patients with unstable renal function and has not been validated in children and those over 70. Current interpretive data was last reviewed 2021. Blood 10/27/2024 11:0 0 AM CDT 10/27/2024 11:34 AM CDT us Golden Rosenbaum MD LAB BLOOD ORDERABLES Final R esult [facility] ([place]) [address] [facility] Department of Laboratories [place], [place] [id number] * (ABNORMAL) Differential, auto (10/27/2024 11:00 AM CDT) Neutrophil abs 6.19 1.50 - 6.50 K/cumm Imm gran abs 0.04 0.00 - 0.10 K/cumm [facility] ([place]) Lymphocyte abs 2.47 0.80 - 3.30 K/cumm [facility] ([place]) Monocyte abs 0.93(H) 0.20 - 0.80 K/cumm [facility] ([place]) Eosinophil abs 0.04 0.00 - 0.50 K/cumm [facility] ([place]) Basophil abs 0.02 0.00 - 0.10 K/cumm [facility] ([place]) Neutrophil pct 63.9 % [facility] ([place]) Comment: Interpretive Data Percent cell count reference ranges are not reported, since discordance with absolute values may lead to misinterpretation of CBC data. Current Interpretive Data was last revised on 2017. Imm gran pct 0.4 % [facility] ([place]) Comment: Interpretive Data Percent cell count reference [...] Final R esult [facility] ([place]) [address] [facility] [place] [address] * CBC with auto differential (10/27/2024 11:00 AM CDT) WBC 9.69 3.80 - 9.90 K/cumm Hgb 12.9 11.9 - 15.5 g/dL [facility] ([place]) Hct 39.7 35.6 - 45.5 % [facility] ([place]) Plt 286 150 - 400 K/cumm [facility] ([place]) MPV 9.4 9.1 - 12.3 fL [facility] ([place]) RBC 4.43 3.90 - 5.20 M/cumm [facility] ([place]) MCV 89.6 81.3 - 96.4 fL [facility] ([place]) MCH 29.1 27.1 - 33.3 pg [facility] ([place]) MCHC 32.5 32.3 - 35.7 g/dL [facility] ([place]) RDW CV 13.5 11.1 - 14.9 % [facility] ([place]) RDW SD 44.5 35.7 - 48.1 fL [facility] ([place]) NRBC abs 0.00 0.00 - 0.01 K/cumm [facility] ([place]) Blood 10/27/2024 11:0 0 AM CDT 10/27/2024 11:34 AM CDT Golden Rosenbaum MD LAB BLOOD ORDERABLES Final R esult Performing Organization Address [facility] Co de Phone Number [facility] ([place]) 1 [facility] [email or web address] [address] * Hemoglobin A1c (10/27/2024 11:00 AM CDT) Hgb A1C 5.6 4.0 - 5.6 % Estimated Average Glucose 114 mg/dL [facility] ([place]) Comment: The ADA recommends reporting an estimated Average Glucose (eAG) with all Hemoglobin A1c results using the equation derived from a study of 507 normal and diabetic adults. Minority populations were underrepresented and children were not included. (Diabetes Care 31:6539-1987, 2008). The eAG is not equivalent to a fasting glucose. Blood 10/27/2024 11:0 0 AM CDT 10/27/2024 11:34 AM CDT Golden Rosenbaum MD LAB BLOOD ORDERABLES Final R esult Performing Organization Address [facility] Co de Phone Number [facility] ([place]) 1 [facility] [email or web address] [address] * (ABNORMAL) Comprehensive metabolic panel (10/27/2024 11:00 AM CDT) Pathologist [facility] Sodium 135 135 - 145 mmol/L Potassium, pl 4.4 3.3 - 4.9 mmol/L [facility] ([place]) Chloride 96(L) 97 - 110 mmol/L [facility] ([place]) CO2 25 22 - 32 mmol/L [facility] ([place]) Anion gap 15 2 - 15 mmol/L [facility] ([place]) BUN 15 6 - 25 mg/dL [facility] ([place]) Creatinine 0.79 0.60 - 1.10 mg/dL [facility] ([place]) Glucose 71 70 - 199 mg/dL [facility] ([place]) Comment: Interpretive Data Fasting glucose [...] classification and Diagnosis of Diabetes Diabetes Care 202; 46: S19-S40. Current interpretive data was last [...] BLOOD ORDERABLES Final R esult [facility] ([place]) [address] [facility] [place] [address] from Last 3 Months Insurance MEDICARE [facility] MEDICARE [facility] MEDICARE [facility] Care Teams Paper Testing Supervisor Relationship Specialty Start Date End Date Toni Tracey MD [address] [place], [place] [id number] PCP - General 02/29/16
[2024-10-31 11:30] LABS: Anion Gap 5 mmol/L (4-12); Blood Urea Nitrogen 18 mg/dL (7-17); Calcium 9.1 mg/dL (8.4-10.2); Carbon Dioxide 29 mmol/L (22-30); Chloride 102 mmol/L (98-107); Estimated Glomerular Filt Rate > 60; Glucose 61 mg/dL (65-110); Osmolality Calculated 281 mOsm/kg (285-295); Potassium 4.4 mmol/L (3.4-5.0); Sodium 136 mmol/L (137-145)
== END 2024-10-31 10:14 | disposition home or self-care (01) ==
PROVIDERS: PCP Internal Medicine; Visit Provider Internal Medicine
DX: E87.1 Hypo-osmolality and hyponatremia (principal)
CPT/HCPCS: 36415; 80048

== ENCOUNTER 2024-12-16 11:07 | Outpatient (RCR) | payer MEDICARE, OTHER, SELFPAY ==
--- NOTE | 2024-12-16 13:14 | PTOPEVAL1 ---
Assessment and note entered by Misty Early DPT Evaluation Information Assessment Status Evaluation Diagnosis R shoulder pain Onset 11/25/24 Subjective Information Patient reports she had R reverse total shoulder replacement on 11/25/24. She reports she had RTC in the early 1999' and then in Jan 2024 she fell on her R side and was recommended to have a reverse TSA. She reports that since surgery she has had soreness but not a lot of pain. She reports that she is sleeping good and is icing. She reports she has been driving. She reports that she is having difficulty dressing, fixing her hair and completing house hold tasks. She returns to MD on 01/22/25. Reported Pain Level Pain Score 2: Self Report Assessment PT Clinical Summary Mrs. Comer is a 84 year old female who presents to PT s/p R TSA. She demonstrates increased shoulder pain, decreased strength and decreased active ROM limiting her ability to dress, fix her hair and complete house hold tasks. She would benefit from skilled PT to address impairments and return to PLOF. Plan of Care Interventions Electrical Stimulation,Hot Pack/Cold Pack,Manual Therapy,Neuro Re-education,Patient/Caregiver Education,Therapeutic Activities,Therapeutic Exercise PT Services Indicated Yes Treatment Frequency and 2x weekly for 10 visits Duration These treatments will address the objective and functional deficits as defined above. The patient will be advanced safely and appropriately in order for the patient to progress towards his/her prior level of function. Additional exercises will be introduced and as well as a comprehensive home exercise program upon discharge, if needed, ?to ensure carryover of functional gains achieved in the clinic. This treatment plan has been reviewed and agreement upon by the patient.
--- NOTE | 2025-01-15 16:12 | OPREHPOC ---
Outpatient Therapy Plan of Care This is a Multidisciplinary Plan of Care that may contain components documented by all disciplines (PT, OT, and ST.) PT Problem 1 PT Problem #1 Knowledge Deficit PT Goal 1 Goal / Goal Update Patient to demonstrate independence with HEP Target Visit 5 Progress Met PT Goal 2 Goal / Goal Update continue to progress PT Problem 2 PT Problem #2 Pain PT Goal 1 Goal / Goal Update 1. patient to report highest pain at 2/10 Target Visit 10 Progress Not Met PT Goal 2 Goal / Goal Update continue Target Visit 20 PT Problem 3 PT Problem #3 Impaired Range of Motion PT Goal 1 Goal / Goal Update 1. Patient to demonstrate 140 deg of R active flexion to return to reaching into cabinet at PLOF Target Visit 10 Progress Not Met PT Goal 2 Goal / Goal Update continue Target Visit 20 PT Problem 4 PT Problem #4 Impaired Strength PT Goal 1 Goal / Goal Update Patient to demonstrates 4+/5 R UE strength to return to house hold tasks at PLOF Target Visit 10 Progress Not Met PT Goal 2 Goal / Goal Update continue Target Visit 20 PT Problem 5 PT Problem #5 Impaired Functional Mobility PT Goal 1 Goal / Goal Update 1. Patient to improve QuickDash to less than 20% 2. Patient to report ability to fix her hair without limitations Target Visit 10 Progress Not Met PT Goal 2 Goal / Goal Update continue Target Visit 20
--- NOTE | 2025-01-15 16:12 | PTOPPROG ---
Assessment and note entered by Ngoc Tyson, PT Evaluation Information Assessment Status Progress Diagnosis R shoulder pain Onset 11/25/24 Subjective Information Julia Comer reports her right shoulder is getting better overall. She still has pain with some stretches. She has been avoiding reaching behind her back and still has difficulty bathing and dressing because of this. She also notes weakness and difficulty lifting even a coffee mug. She still has difficulty turning the steering wheel too. Assessment PT Clinical Summary Mrs. Comer has completed 10 skilled PT visits s/ p R TSA. She reports her shoulder is getting better but she still has soreness when stretching her arm to the side. She is also noting weakness and difficulty lifting light items. She is 7 weeks post op at this time and has just began AROM last week. She demonstrates improved right shoulder PROM. She is progressing steadily with right shoulder AAROM and AROM. We continue to avoid extension past the neutral and IR. She remains limited with shoulder strength. She will continue to benefit from skilled PT to further address ROM and strength to improve her functional abilities for daily life. Plan of Care Interventions Electrical Stimulation,Hot Pack/Cold Pack,Manual Therapy,Neuro Re-education,Patient/Caregiver Education,Therapeutic Activities,Therapeutic Exercise PT Services Indicated Yes Treatment Frequency and Continue skilled PT 2x weekly for 10 additional Duration visits These treatments will address the objective and functional deficits as defined above. The patient will be advanced safely and appropriately in order for the patient to progress towards his/her prior level of function. Additional exercises will be introduced and as well as a comprehensive home exercise program upon discharge, if needed, ?to ensure carryover of functional gains achieved in the clinic. This treatment plan has been reviewed and agreement upon by the patient.
--- NOTE | 2025-02-17 17:34 | PTOPDC ---
Assessment and note entered by Misty Early DPT Evaluation Information Assessment Status Discharge Diagnosis R shoulder pain Onset 11/25/24 Subjective Information Patient reports she has returned to all daily activities without difficulty. She reports that she is not always doing her HEP but has an indoor pool and is able to do swimming activities. She reports she is ready to discharge. Reported Pain Level Pain Score 0: Self Report Assessment PT Clinical Summary Mrs. Comer attended 19 visits of skilled PT with good progress towards goals. She demonstrates improved active ROM and strength of the R shoulder with improved ability to complete house hold tasks. She is independent with HEP and is appropriate for DC at this time. Plan of Care PT Services Indicated No
== END 2025-02-17 20:00 | disposition home or self-care (01) ==
LOC: CHSPT 11:07
PROVIDERS: Visit Provider Nurse Practitioner Family
DX: Z47.1 Aftercare following joint replacement surgery (principal); M25.511 Pain in right shoulder; Z48.89 Encounter for other specified surgical aftercare; Z96.611 Presence of right artificial shoulder joint
CPT/HCPCS: 97110; 97112; 97150; 97161

== ENCOUNTER 2024-12-26 15:11 | Outpatient (CLI) | payer MEDICARE, OTHER, SELFPAY ==
--- NOTE | ~2024-12-26 | CT_ITS ---
EXAMINATION: CT abdomen w con DATE: 12/26/2024 18:14 INDICATION: Elevated liver enzymes. Abdominal pain. TECHNIQUE: Computed tomography (CT) of the abdomen was performed with intravenous contrast. The dose-length product was 218.64 mGy-cm. COMPARISON: CT dated 05/02/2022. FINDINGS: Lung bases unremarkable. Heart size normal. No significant pleural or pericardial effusion. There is pneumobilia, consistent with prior cholecystectomy and probable sphincterotomy. Fatty infiltration of the liver. The spleen contains calcified granulomas. Pancreas is unremarkable. Adrenal gla nds and kidneys are unremarkable. Nonobstructive bowel gas pattern. No free air or free fluid. No significant vascular abnormality. Severe lumbar spondylosis. IMPRESSION: 1. No acute abdominal abnormality. Reviewed, dictated and finalized at location O.
[2024-12-26 15:40] LABS: Hematocrit 38.1 % (35.0-42.0); Hemoglobin 12.2 g/dL (11.7-13.8); Mean Corpuscular HGB Conc 32.0 g/dL (32-36); Mean Corpuscular Hemoglobin 28.9 pg (27.0-31.0); Mean Corpuscular Volume 90.3 fL (78.0-102.0); Platelet Count Result 282 K/mm3 (150-420); Red Blood Count 4.22 M/mm3 (4.20-5.40); White Blood Count 11.0 K/mm3 (4.8-10.8)
[2024-12-26 16:10] LABS: Alanine Aminotransferase 305 U/L (6-35); Albumin Level 4.4 g/dL (3.5-5.1); Alkaline Phosphatase 891 U/L (38-126); Amylase 55 U/L (30-110); Anion Gap 12 mmol/L (4-12); Aspartate Amino Transferase 247 U/L (14-36); Bilirubin,Total 3.5 mg/dL (0.2-1.3); Blood Urea Nitrogen 14 mg/dL (7-17); Calcium 9.8 mg/dL (8.4-10.2); Carbon Dioxide 29 mmol/L (22-30); Chloride 100 mmol/L (98-107); Estimated Glomerular Filt Rate > 60; Glucose 113 mg/dL (65-110); Lipase 36 U/L (23-300); Osmolality Calculated 293 mOsm/kg (285-295); Potassium 4.1 mmol/L (3.4-5.0); Sodium 141 mmol/L (137-145); Total Protein 6.7 g/dL (6.3-8.2)
== END 2024-12-26 15:12 | disposition home or self-care (01) ==
PROVIDERS: PCP Internal Medicine; Visit Provider Nurse Practitioner Family
DX: R10.13 Epigastric pain (principal); R74.01 Elevation of levels of liver transaminase levels; D72.829 Elevated white blood cell count, unspecified
CPT/HCPCS: 36415; 74160; 80053; 82150; 83013; 83690; 85027; Q9967

== ENCOUNTER 2024-12-30 13:27 | Outpatient (CLI) | payer MEDICARE, OTHER, SELFPAY ==
[2024-12-30 13:44] LABS: Hematocrit 39.0 % (35.0-42.0); Hemoglobin 12.3 g/dL (11.7-13.8); Mean Corpuscular HGB Conc 31.5 g/dL (32-36); Mean Corpuscular Hemoglobin 28.7 pg (27.0-31.0); Mean Corpuscular Volume 91.1 fL (78.0-102.0); Platelet Count Result 334 K/mm3 (150-420); Red Blood Count 4.28 M/mm3 (4.20-5.40); White Blood Count 8.8 K/mm3 (4.8-10.8)
[2024-12-30 14:16] LABS: Alanine Aminotransferase 282 U/L (6-35); Albumin Level 4.3 g/dL (3.5-5.1); Alkaline Phosphatase > 1000 U/L (38-126); Amylase 50 U/L (30-110); Anion Gap 11 mmol/L (4-12); Aspartate Amino Transferase 274 U/L (14-36); Bilirubin,Total 2.1 mg/dL (0.2-1.3); Blood Urea Nitrogen 17 mg/dL (7-17); Calcium 9.9 mg/dL (8.4-10.2); Carbon Dioxide 32 mmol/L (22-30); Chloride 96 mmol/L (98-107); Estimated Glomerular Filt Rate 60; Glucose 146 mg/dL (65-110); Lipase 30 U/L (23-300); Osmolality Calculated 292 mOsm/kg (285-295); Potassium 4.6 mmol/L (3.4-5.0); Sodium 139 mmol/L (137-145); Total Protein 7.1 g/dL (6.3-8.2)
[2024-12-30 14:30] LABS: GGT > 690.0 U/L (12-43)
--- OUTSIDE RECORDS SUMMARY | 2024-12-30 15:06 | XMS_ITS | Encounter Summary ---
Author Organization [facility] Healthcare Address [address] [place] [address] Care Team Providers Care Assistant Press Operator Offset Name Role Phone Toni Tracey MD Primary Care Provider + [phone] Sebastian Lowery OT Unavailable Unavailable Burak Mari DOCK PUMPER Unavailable [phone] Encounter Details Date Type Department Care Team (Late st Contact Info) Description 12/16/2019 Telephone [facility] - Imaging [address] [place] [address] Transcribed Order, Provider Social History Tobacco Use Types Packs/Day Years Used Date Smoking Tobacco: Never Smokeless Tobacco: Never Comments No Sex and Gender Information Value Date Recorded Sex Assigned at Not on file 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 Gender Identity Not on file Sexual Orientation Not on file documented as of this encounter Plan of Treatment Not on file documented as of this encounter Visit Diagnoses Not on filedocumented in this encounter Care Teams Assistant Press Operator Offset Relationship Specialty Start Date End Date Toni Tracey MD [address] [place], [place] [id number] PCP - General 02/29/16 Sebastian Lowery, OT Occupational Therapist Occupational Therapy 11/12/24 Burak Mari NP [address] [place] [address] [address] [place] [address] Nurse Practitioner Orthopedic Surgery 11/25/24 documented as of this encounter
--- OUTSIDE RECORDS SUMMARY | 2024-12-30 15:06 | XMS_ITS | Clinical Summary ---
Author Organization [facility] Address [address] [place] [address] Care Team Providers Care Scientific Programmer Analyst Name Role Phone Unavailable Primary Care Provider Unavailabl e Source Comments [facility],non-owned Affiliates and Associated Physician Practices is amultiple site organization consisting of ambulatory clinics and hospital sitesin [place], [place], [place] and [place]. This disclosure is being madepursuant to the Care Everywhere program and may not contain all information available regarding this patient. 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 Gender Identity Not on file Sexual Orientation Not on file Plan of Treatment Health Maintenance Due Date Last Done Comments BONE DENSITY TESTING 1942 DTAP/TDAP/TD VACCINES (1 - Tdap) 1961 PNEUMOCOCCAL VACCINE 50+ (1 of 1 - PCV) 02/10/1992 ZOSTER VACCINE (1 of 2) 02/10/1992 Respiratory Syncytial Virus (RSV) Vaccine Pt: or over 60 yrs (1 - 1-dose 75+ series) 2017 DEPRESSION SCREENING 04/16/2024 COVID-19 VACCINE (1 - 2023-2 5 season) 2024 INFLUENZA VACCINE (#1) 2024 HEPATITIS B VACCINE [...] age to complete this topic Insurance MEDICARE [facility] Address: [address] [address] ATTN [place] [address]
--- OUTSIDE RECORDS SUMMARY | 2024-12-30 15:06 | XMS_ITS | Clinical Summary ---
Author Organization [facility] Address [facility] [place] [address] Care Team Providers Care Wood Cabinetmaker Name Role Phone Unavailable Primary Care Provider [...] series) 2017 COVID-19 Vaccine (2023-2 5 season) 2024 Meningococcal B Vaccine Aged Out No l onger eligible based on patient's age to complete this topic Meningococcal Vaccine Aged Out No komal chavo eligible based on patient's age to complete this topic RSV Immunizations Under 20 Months Aged Out No longer eligible based on patient's age to complete this topic
--- OUTSIDE RECORDS SUMMARY | 2024-12-30 15:07 | XMS_ITS | Clinical Summary ---
Author Organization [facility] Address [address] [place] [address] Care Team Providers Care Wastewater Treatment Supervisor Name Role Phone Toni Tracey MD Primary Care Provider [phone] Sebastian Lowery OT Unavailable Unavailable Burak Mari MANUFACTURERS REPRESENTATIVE Unavailable [phone] Allergies No known active allergies Medications ALPRAZolam (XANAX) 0.25 mg tablet prn 0 0 4 Active multivitamin capsule 0 0 4 Active CYANOCOBALAMIN /FOLIC ACID (VITAMIN Y41-VQILB ACID) 1,000-400 mcg tablet, sublingual 0 0 4 Active ascorbic acid, vitamin C, (VITAMIN C) 500 mg capsule, extended release CR capsule 500 mg. 1 0 4 Active calcium acetate (PHOSLO) 667 mg capsule Take 1,200 mg by mouth daily. Active busPIRone (BUSPAR) 10 mg tablet Take 1 tablet (10 mg total) by mouth as needed 4 Active losartan (COZAAR) 100 mg tablet Take 1 tablet (100 mg total) by mouth daily 5 Active meloxicam (MOBIC) 15 mg tablet Take 1 tablet (15 mg total) by mouth daily 5 Active torsemide (DEMADEX) 5 mg tablet Take 1 tablet (5 mg total) by mouth daily 5 Active cholecalcifero l 25 mcg (1,000 unit) tablet Take 1 tablet (1,000 Units total) by mouth daily Active aspirin 81 mg enteric coated tablet Take 1 tablet (81 mg total) by mouth 2 (two) times a day for 14 days, THEN 1 tablet (81 mg total) daily. 5 12/10/19 26 Active senna-docusate (PERICOLACE) 8.6-50 mg 1-2 times daily as needed for constipation 60 tablet 1 5 Active ondansetron (ZOFRAN) 4 mg tablet Every 4-6 hours as needed 30 tablet 1 5 Active HYDROcodone-ac etaminophen (NORCO) 5-325 mg per tabletIndicati ons:Pain Take 1-2 tablets by mouth every 4 (four) hours as needed for pain 63 tablet 5 Active ferrous sulfate 325 mg (65 mg of elemental iron) tabletIndicati ons:Iron Deficiency Anemia Take 1 tablet (325 mg total) by mouth daily with breakfast 30 tablet 5 12/27/19 25 Active Problems Problem Noted Date Diagnosed Date Rotator cuff arthropathy, right 11/25/2024 S/P reverse total shoulder arthroplasty, right 0 11/23/2024 Rotator cuff tear arthropathy of right shoulder 11/03/2024 Varicose veins of bilateral lower extremities with other complications 11/20/2022 Left thyroid nodule 12/10/2020 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 Overview (07/21/2016): 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 Postoperative state 11/12/2013 Overview (07/21/2016): Post-operative state Encounters Date Type Department Care Team Description 12/16/2024 Orders Only [facility] Orth[facility]ics and Sports Medicine [address] [place] [address] [address] [address] Burak Mari NP Status post reverse total shoulder replacement, right (Primary Dx) 12/09/2024 1:00 PM CDT Telemedicine [facility] [address] [place] [address] [address] [place] [phone] Burak Mari, TANIYA Status post reverse total shoulder replacement, right (Primary Dx) 12/09/2024 Orders Only [facility] Medicine [address] [place] [address] [address] [place] [address] Burak Mari, TANIYA Status post reverse total shoulder replacement, right (Primary Dx) 12/09/2024 Telephone [facility] [address] [place] [address] [address] [place] [address] Burak Mari, TANIYA 11/27/2024 [facility] Post Discharge Follow up phone call [facility] [address] [place] [address] Rebekah Jarvis 11/25/2024 1:49 PM CDT Anesthesia Event [facility] Operating Room [address] [place] [address] Raul Camarena MD Alexander, Jeffrey Michael, DO 11/25/2024 1:30 PM CDT - 11/25/2024 4:00 PM CDT Surgery [facility] Operating Room 1 [place] [address] Golden Rosenbaum MD Right reverse total shoulder arthroplasty 11/25/2024 11:18 AM CDT - 11/26/2024 1:38 PM CDT Hospital Encounter [facility] [address] [place] [address] Golden Rosenbaum MD Rotator cuff tear arthropathy of right shoulder Discharge Disposition: Discharge to home or self care 11/20/2024 4:03 PM CDT - 11/20/2024 11:59 PM CDT Hospital Encounter [address] [address] Rotator cuff arthropathy of right shoulder Discharge Disposition: Discharge to home or self care 11/19/2024 Telephone [facility] [address] [place] [address] [address] [place] [address] Golden Rosenbaum MD 11/19/2024 Telephone [facility] [address] [place] [address] Mariia Shook 11/19/2024 Telephone [facility] [address] [place] [address] Mariia Shook 11/17/[address] [facility] Medical [facility] Orthopedics and Sports Medicine [address] [facility] [address] [place] [address] Golden Rosenbaum MD 11/12/2024 Telephone [facility] [address] [place] [address] Obdulio Heike Tony 10/27/2024 10:55 AM CDT Lab [address] [address] Rotator cuff arthropathy of right shoulder; Encounter for screening for diabetes mellitus 10/27/2024 10:53 AM CDT - 10/27/2024 11:59 PM CDT Hospital Encounter [facility] [address] [place] [address] Rotator cuff arthropathy of right shoulder Discharge Disposition: Discharge to home or self care 10/27/2024 10:52 AM CDT - 10/27/2024 11:59 PM CDT Hospital Encounter [facility] Cardiology [address] [place] [address] Rotator cuff arthropathy of right shoulder Discharge Disposition: Discharge to home or self care 09/30/[address] [facility] Medical [facility]ics [facility] Sports Medicine [address] [facility] [address] [place] [address] Ceci Brown MA from Last 3 Months Surgical History Surgery Date Site/Laterality Comments ABSCESS TUBE EXCHANGE 2016 N/A CT GUIDED DRAINAGE PERITONEA L OR RETROPERITONEAL FLUID COLLECTION 01/31/2016 N/A PANCREATICODUODENECTOMY WRIST FRACTURE SURGERY Left Medical History Medical History Date Comments Pancreatic neoplasm Hypertension Edema Anxiety Social History Tobacco Use Types Packs/Day Years Used Date Smoking Tobacco: Never Smokeless Tobacco: Never Tobacco Cessation:Counseling Given: Not Answered AUDIT-C Answer Date Recorded Q1: How often do you have a drink containing alc ohol? Monthly or less 11/18/2024 Q2: How many drinks containi ng alcohol do you have on a typical day when you are drinking? 1 or 2 11/18/2024 Q3: How often do you have si x or more drinks on one occasion? Never 11/18/2024 PHQ-2 Answer Date Recorded PHQ-2 Total Score (If total score is 3 or more points, staff should administer the PHQ-9) 0 11/25/2024 Personal Safety Answer Date Recorded Have you ever been in or are you currently in a harmful physical or emotional relationship or is someone making you feel afraid or unsafe? 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 Gender Identity Not on file Sexual Orientation Not on file Obstetrics History Last Filed Vital Signs Vital Sign Reading Time Taken Comments Blood Pressure 170/75 11/26/2024 7:33 AM CDT Pulse 77 11/26/2024 7:33 AM CDT Temperature 36.3 C (97.3 F) 11/26/2024 7:33 AM CDT Respiratory Rate 18 11/26/2024 7:33 AM CDT Oxygen Saturation 100% 11/26/2024 7:33 AM CDT Inhaled Oxygen Concentration - - Weight 72 kg (158 lb 11.7 oz) 11/25/2024 12:01 P M CDT Height 157.5 cm (5' 2) 11/25/2024 12:01 PM CDT Body Mass Index 29.03 11/25/2024 12:01 PM CDT Plan of Treatment Health Maintenance Due Date Last Done Comments Osteoporosis Screening-Bone Density Scan 1940 Hepatitis B Screening 02/10[birth year]1960 Well Visit 65+ 2007 DTaP/Tdap/Td Vaccine (2 - Td or Tdap) 03/30/2015 Zoster Vaccine (3 of 3) 06/07/2018 04/12/2018, 03/26 Influenza Vaccine (#1) 2024 01/18/2017 Depression Screening 11/03/2025 11/03/2024 Fall Risk Assessment 11/26/2025 11/26/2024 Pneumococcal vaccine 65+ Completed 01/28/2015, 01/14 Medical Devices Implanted Type Area Audiovisual Production Specialist Device Identifier Shelf Expiration Date Model / Serial / Lot Exactech Component 36mm Glenoid Glenosphere Reverse Shoulder 320-31-36 - [id number] - [id number] Implanted:Qty: 1 on 11/25/2024 by Golden Rosenbaum MD at [facility] Right: Shoulder Exactech [id number] 07/08/2034 320-31-36 / [id number] / Exactech Equinoxe Lock Reverse Shoulder Glenosphere Screw Bone 320-15-05 - [id number] - [id number] Implanted:Qty: 1 on 11/25/2024 by Golden Rosenbaum MD at [facility] Right: Shoulder [employer] [id number] 06/17/2029 320-15-05 / [id number] / Exactech Equinoxe Small Reverse Superior Augment Shoulder 10d Plate 320-35-02 - [id number] - [id number] Implanted:Qty: 1 on 11/25/2024 by Golden Rosenbaum MD at [facility] Right: Shoulder [employer] [id number] 06/17/2034 320-35-02 / [id number] / Exactech Equinoxe 4.5mm 34mm Kit Compression Lock Cap Reverse Shoulder 320-20-34 - [id number] - [id number] Implanted:Qty: 1 on 11/25/2024 by Golden Rosenbaum MD at [facility] Right: Shoulder [employer] [id number] 12/04/2028 320-20-34 / [id number] / Exactech Equinoxe 4.5mm 34mm Kit Compression Lock Cap Reverse Shoulder 320-20-34 - [id number] - [id number] Implanted:Qty: 1 on 11/25/2024 by Golden Rosenbaum MD at [facility] Right: Shoulder [employer] [id number] 12/23/2028 320-20-34 / [id number] / [employer]rex [employer] Univers Revers Arthrex 5mm Stem Humeral Sterile Ar-9501-05p - [id number] Implanted:Qty: 1 on 11/25/2024 by Golden Rosenbaum MD at [facility] Right: Shoulder [employer] [id number] 08/13/2029 AR-9501-0 5P 41232 [employer] Inc Implant Suture Cup Humeral Reverse Right Univers Revers +2x33mm Titanium [id number] - [id number] Implanted:Qty: 1 on 11/25/2024 by Golden Rosenbaum MD at [facility] Right: Shoulder [employer] [id number] 07/14/2029 AR-9502F- [id number] .[id number] [employer] Insert Humeral Combo Reverse Poly Univers Revers +3x33mm [id number] - [id number] Implanted:Qty: 1 on 11/25/2024 by Golden Rosenbaum MD at [facility] Right: Shoulder [employer] [id number] 12/14/2028 AR-9503-3 336-.[id number] Procedures Procedure Name Priority Date/Time Associated Diagnosis Comments XR SHOULDER RIGHT 2 OR MORE VIEWS IP Routine 11/25/2024 4:08 PM CDT GRAM STAIN - MANNYNER NABEEL STAT 11/25/2024 3:14 PM CDT AEROBIC AND ANAEROBIC CULTURE AND GRAM STAIN STAT 11/25/2024 3:14 PM CDT WV AN ELECTIVE ENDOTRACHEAL AIRWAY Routine 11/25/2024 2:16 PM CDT ARTHROPLASTY SHOULDER - REVERSE TOTAL 11/25/2024 1:25 PM CDT Rotator cuff tear arthropathy of right shoulder Special Needs Arthrex, beach chair, NMES, polar care, 1 liter beta rinse and aquamantys (overnight) POTASSIUM, WHOLE BLOOD STAT 11/25/2024 11:52 AM CDT APTT STAT 11/25/2024 11:52 AM CDT PROTIME-INR STAT 11/25/2024 11:52 AM CDT PAIN BLOCK Routine 11/25/2024 11:29 AM CDT SURGICAL PATHOLOGY Routine 11/25/2024 9: 27 AM CDT Rotator cuff tear arthropathy of right shoulder CT SHOULDER RIGHT WO CONTRAST Schedule Routine, Read Routine (OP Routine) 11/20/2024 4:35 PM CDT Rotator cuff arthropathy of right shoulder XR CHEST PA LATERAL 2 VIEWS Schedule Routine, Read Routine (OP Routine) 10/27/2024 11:49 AM CDT Rotator cuff arthropathy of right shoulder URINALYSIS AND REFLEX TO MICROSCOPIC AND CULTURE Routine 10/27/2024 11:39 AM CDT Rotator cuff arthropathy of right shoulder ECG 12-LEAD Routine 10/27/2024 11:38 AM CDT Rotator cuff arthropathy of right shoulder EGFR Routine 10/27/2024 11:00 AM CDT Rotator cuff arthropathy of right shoulder DIFFERENTIAL AUTO Routine 10/27/2024 11:00 AM CDT Rotator cuff [...] shoulder from Last 3 Months Results * XR Shoulder Right 2+ View (11/25/2024 4:08 PM CDT) Anatomical Region Laterality Modality Upper Extremities, Shoulder Right Comp uted Radiography 11/26/2024 5:36 AM CDT Narrative 11/26/2024 5:36 AM CDT EXAM DESCRIPTION: XR SHOULDER RIGHT 2 OR MORE VIEWS REASON FOR STUDY: post op Post op right shoulder TECHNIQUE: Two views COMPARISON: 02/15/2024 FINDINGS: Right shoulder prosthesis with postop changes of bone soft tissue. No unexpected findings. IMPRESSION: Postop appearance right shoulder prosthesis. THIS IS AN ELECTRONICALLY VERIFIED FINAL REPORT 11/26/2024 5:36 AM - Electronically signed by Mp Camacho M.D. RB: RB Report ID: [id number] Reading Location: [id number] Procedure Note Mp Camacho MD - 11/26/2024 EXAM DESCRIPTION: XR SHOULDER RIGHT 2 OR MORE VIEWS REASON FOR STUDY: post op Post op right shoulder TECHNIQUE: Two views COMPARISON: 02/15/2024 FINDINGS: Right shoulder prosthesis with postop changes of bone soft tissue. No unexpected findings. IMPRESSION: Postop appearance right shoulder prosthesis. THIS IS AN ELECTRONICALLY VERIFIED FINAL REPORT 11/26/2024 5:36 AM - Electronically signed by Mp Camacho M.D. RB: RB Report ID: [id number] Reading Location: [id number] Rima FLORES IMG XR PROCEDURES Feli l Result * Gram stain Miscellaneous Shoulder, right (11/25/2024 3:14 PM CDT) Direct Specimen Exam Stain: Rare polymorphonuclear leukocytes seen. No organisms seen. Miscellaneous (Shoulder, right) 11/25/2024 3:14 PM CDT 11/25/2024 3:24 PM CDT Golden Rosenbaum MD LAB MICROBIOLOGY - GENERAL O RDERABLES Final Result [facility] [address] [facility] Department [place] [address] * Aerobic and anaerobic culture and gram stain Wound Shoulder, right (11/25/2024 3:14 PM CDT) Direct Specimen Exam Stain: Few polymorphonuclear leukocytes seen. No organisms seen. Comment:Testing performed by : [facility], [address] [place]., [address] Report Final Report: No growth [facility] ([place]) Comment:Testing performed by : [facility], [address] [place]., [address] Wound (Shoulder, right) 11/25/2024 3:14 PM CDT 11/25/2024 6:12 PM CDT Narrative [facility] ([place]) - 12/05/2024 10:06 AM CDT Right shoulder stat culture Specimen received on an ESwab. Testing performed by [facility] ([phone]) Specimens submitted from normally sterile body sites will have all bacterial morphotypes identified. Specimens that contain grossly mixed juanita and/or are from body sites that are not normally sterile will be examined for Staphylococcus aureus, Pseudomonas aeruginosa, beta-hemolytic strep, vancomycin-resistant Enterococcus, Bacteroides, Parabacteroides, Clostridium perfringens and fungus. If any of these are isolated, the organism will be reported. Current interpretive data was last revised on 2019. us Golden Rosenbaum MD LAB MICROBIOLOGY - GENERAL O RDERABLES Final Result [facility] [address] [facility] Department [place] [address] * WV AN ELECTIVE ENDOTRACHEAL AIRWAY (11/25/2024 2:16 PM CDT) Narrative Sintia Sandoval CRNA - 11/25/2024 2:16 PM CDT Sintia Sandoval CRNA 11/25/2024 2:17 PM Airway Patient location: OR Urgency: elective Date/time: 11/25/2024 1:56 PM Indications for airway management: anesthesia Difficult airway: no Staff: Placed by: SENIOR ACCOUNT EXECUTIVE: Sintia Sandoval CRNA Emergent airway documentation: Risks and benefits discussed: yes Consent obtained: yes Consent given by: patient Airway prep: Preoxygenated: yes Mask difficulty assessment: 1 - vent by mask Spontaneous ventilation during airway: absent Sedation level during airway: GA Final airway details: Final airway type: endotracheal airway Tube type: ETT ETT size: 6.5 mm Cuffed: yes Technique used for successful ETT placement: video laryngoscopy Insertion site: oral Video blade type: Do Blade size: 3 Cormack-Lehane (video): grade I - full view of glottis Cuff volume: 6 mL Cuff inflated with: air ETT to lips: 19 cm Placement verified by: auscultation and CO2 detection Airway secured with: silk tape Number of attempts: 1 Raul Camarena MD ANESTHESIA ORDERABLES Fi nal Result * Potassium, whole blood (11/25/2024 11:52 AM CDT) Potassium, bld 3.9 3.3 - 4.9 mmol/L Comment: Interpretive Data This method is not able to assess for hemolysis, which may falsely increase potassium concentrations. If further testing is needed to evaluate this result, consider in-laboratory plasma potassium. Current Interpretive Data was last revised on 2022. Blood 11/25/2024 11:5 2 AM CDT 11/25/2024 11:55 AM CDT Golden Rosenbaum MD LAB BLOOD ORDERABLES Final R [facility] Performing Organization Address City/[facility] Co de Phone Number [facility] ([place] [address] [facility] Department [place] [address] * aPTT (11/25/2024 11:52 AM CDT) aPTT 33 26 - 38 sec [facility] ([place]) Comment: Interpretive Data Heparin therapeutic range: 66.0 - 100.0 seconds. Range based on correlation with therapeutic heparin activity range of 0.3 - 0.7 Units/mL. Current interpretive data was last revised on 2023. Blood 11/25/2024 11:5 2 AM CDT 11/25/2024 11:55 AM CDT Golden Rosenbaum MD LAB BLOOD ORDERABLES Final R esult [facility] ([place] [address] [facility] Department [place] [address] * Protime-INR (11/25/2024 11:52 AM CDT) PT 11.8 10.2 - 13.[address] [facility] ([place] INR 1.05 0.90 - 1.[address] [facility] ([place]) Comment: Interpretive data Oral anticoagulant therapeutic ranges: Venous thromboembolism prophylaxis or treatment: 2.0-3.0 CARDIOLOGY Standard range: 2.0-3.0 High-intensity range: 2.5-3.5 Refer to indication-specific guidelines for appropriate target ranges for prosthetic heart valve replacement. Current interpretive data was last revised on 2019. Blood 11/25/2024 11:5 2 AM CDT 11/25/2024 11:55 AM CDT Golden Rosenbaum MD LAB BLOOD ORDERABLES Final R esult [facility] [address] [facility] Department [place] [address] * Surgical pathology (11/25/2024 9:27 AM CDT) Tissue (Bone Fragment(s),) 11/25/2024 2:45 PM CDT Comment:Placed in formalin a t time of drop off Narrative PATHOLOGY [facility] ([place]) - 12/01/2024 11:47 AM CDT EPIC results best viewed via link to PDF [facility] Department of Pathology [address] [place] [id number] Note to Patients: This report may contain a detailed description of human tissue sent by a health care provider to the laboratory for pathologic evaluation. The content of this report is essential for diagnosis and may provide important critical findings. This information may be unfamiliar to patients to review without a medical professional present. It is advised that the patient review this report in the presence of a health care provider who can answer questions and explain the details. Final Report Patient Name: RHINA FERREIRA Address: [address] [place] [address]- Gender: F : 1940 (Age: 84) Service: Surgery Location: [facility] Hospital #: [id number] Patient Type: DAVID EP OP in bed Taken: 11/25/2024 Received: 11/26/2024 Accessioned: 11/26/2024 Reported: 12/01/2024 Physician(s):Dr. Golden Rosenbaum M.D. Diagnosis: Right shoulder, arthroplasty: - Consistent with degenerative joint disease. Ken Kendall M.D. Report Electronically Reviewed and Signed Out By Ken Kendall M.D. 12/01/2024 11:47:00 Specimen(s) Received: A: Right shoulder bone and tissue Microscopic Description: Sections show fragments of benign bone and cartilage. The overlying articular cartilaginous surface shows degenerative features including areas of erosion with fissures and clefting. The underlying medullary space shows some focal medullary fibrosis and trilineage hematopoiesis. No significant inflammatory infiltrate is seen. There is no evidence of malignancy. Sections from the soft tissue shows benign fibroconnective tissue with reactive synovium. Clinical History: Rotator cuff tear arthropathy of right shoulder. Right reverse total shoulder arthroplasty. Gross Description: The container is labeled RHINA FERREIRA and right shoulder. It is a 5.3 cm in diameter discoid-shaped piece of red-villarreal bone with an articular surface on one side 1 strip of villarreal fibrous tissue measuring 4 x 1 cm. The articular surface shows erosion, pitting and granularity. The specimen is decalcified and represented in two cassettes. Mary Beth Rocha R.N., P.A./Ness Willett M.D. REPORT IMAGES AND SCANNED DOCUMENTS, IF INCLUDED, ONLY VIEWABLE IN PDF VERSION OF REPORT The performance characteristics of some immunohistochemical stains, fluorescence in-situ hybridization tests and immunophenotyping by flow cytometry cited in this report (if any) were determined by the Surgical Pathology Department at [facility] as part of an ongoing quality improvement engineer program and in compliance with federally mandated regulations drawn from the Clinical Laboratory Improvement Act of 1988 (CLIA '88). Some of these tests rely on the use of analyte specific reagents and are subject to specific labeling requirements by the US Food and Drug Administration. Such diagnostic tests may only be performed in a facility that is certified by the Department of Health and Human Services as a high complexity laboratory under CLIA '88. The FDA has determined that such clearance or approval is not necessary. This test is used for clinical purposes. It should not be regarded as investigational or for research. Nevertheless, federal rules concerning the medical use of analyte specific reagents require that the following disclaimer be attached to the report: This test was developed and its performance characteristics determined by the Surgical Pathology Department [facility]. It has not been cleared or approved by the U. S. Food and Drug Administration. Note for decalcified specimens: This assay has not been validated on decalcified tissues. Results should be interpreted with caution given the possibility of false negativity on decalcified specimens Golden Rosenbaum MD LAB PATHOLOGY ORDERABLES [facility] al Result Performing Organization Address City/State/[facility] Co de Phone Number PATHOLOGY [facility] [address] [place] [address] * CT Shoulder Right WO Contrast (11/20/2024 4:35 PM CDT) Anatomical Region Laterality Modality Upper Extremities Right Computed Tomog dorinda 11/21/2024 8:55 AM CDT Narrative 11/21/2024 9:04 AM CDT EXAM DESCRIPTION: CT SHOULDER RIGHT WO CONTRAST REASON FOR STUDY: Pre-op Rt shoulder replacement for 11/25/24. Hx of Rt rotator cuff surgery. TECHNIQUE: Multidetector CT scan of the right shoulder was performed. Coronal and sagittal images were reconstructed. Dose modulation adjustment of the mA and/or kV has been performed per [facility] protocols according to patient size and indication. COMPARISON: X-rays 02/15/2024. MRI 01/21/2024 FINDINGS: There is normal mineralization. No acute fracture or dislocation. The humeral head is high riding in the glenohumeral joint with pseudoarticulation with the undersurface of the acromion indicative of rotator cuff tear. Degenerative change is seen along the undersurface of the acromion as a result. There is mild osteoarthritis of the glenohumeral joint. [place] is seen of the greater tuberosity from prior rotator cuff repair. Mild glenohumeral joint effusion. Moderate osteoarthritis AC joint. Type 2 acromion. Adjacent ribs are unremarkable. Soft tissues demonstrate no adenopathy by size criteria. No focal soft tissue abnormality. More limited view of the right lung demonstrates respiratory motion. No confluent infiltrate. There is a calcified granuloma along the posteromedial aspect of the right lower lobe. IMPRESSION: 1. No acute fracture. 2. The humeral head is high riding in the glenohumeral joint with pseudoarticulation with the undersurface of the acromion indicative of rotator cuff tear. Degenerative change is seen along the undersurface of the acromion as a result. 3. Mild osteoarthritis glenohumeral joint. 4. Moderate osteoarthritis AC joint. 5. Mild glenohumeral joint effusion. THIS IS AN ELECTRONICALLY VERIFIED FINAL REPORT 11/21/2024 9:04 AM - Electronically signed by Ken Blas M.D. MJ: BESS Report ID: [id number] Reading Location: [id number] Procedure Note Ken Bals MD - 11/21/2024 EXAM DESCRIPTION: CT SHOULDER RIGHT WO CONTRAST REASON FOR STUDY: Pre-op Rt shoulder replacement for 11/25/24. Hx of Rt rotator cuff surgery. TECHNIQUE: Multidetector CT scan of the right shoulder was performed. Coronal and sagittal images were reconstructed. Dose modulation adjustment of the mA and/or kV has been performed per [facility] protocols according to patient size and indication. COMPARISON: X-rays 02/15/2024. MRI 01/21/2024 FINDINGS: There is normal mineralization. No acute fracture or dislocation. The humeral head is high riding in the glenohumeral joint with pseudoarticulation with the undersurface of the acromion indicative ofrotator cuff tear. Degenerative change is seen along the undersurface of theacromion as a result. There is mild osteoarthritis of the glenohumeral joint.[place] is seen of the greater tuberosity from prior rotator cuff repair. Mild glenohumeral joint effusion. Moderate osteoarthritis AC joint. Type 2 acromion. Adjacent ribs are unremarkable. Soft tissues demonstrate no adenopathy by size criteria. No focal softtissue abnormality. More limited view of the right lung demonstrates respiratory motion. No confluent infiltrate. There is a calcified granuloma along theposteromedial aspect of the right lower lobe. IMPRESSION: 1. No acute fracture. 2. The humeral head is high riding in the glenohumeral joint with pseudoarticulation with the undersurface of the acromion indicative ofrotator cuff tear. Degenerative change is seen along the undersurface of theacromion as a result. 3. Mild osteoarthritis glenohumeral joint. 4. Moderate osteoarthritis AC joint. 5. Mild glenohumeral joint effusion. THIS IS AN ELECTRONICALLY VERIFIED FINAL REPORT 11/21/2024 9:04 AM - Electronically signed by Ken Blas M.D. MJ: BESS Report ID: [id number] Reading Location: [place] [address] Golden Rosenbaum MD IMG CT PROCEDURES Final Resu lt * XR Chest Pa Lateral 2 Views (10/27/2024 11:49 AM CDT) Anatomical Region Laterality Modality Body, Chest N/A Computed Radiogr aphy 11/07/2024 10:0 0 PM CDT Narrative 11/07/2024 10:01 PM CDT EXAM DESCRIPTION: XR CHEST PA LATERAL 2 VIEWS REASON FOR STUDY: Pre op testing Pre op for right shoulder replacement on November 25 HTN-medicated No other respiratory issues TECHNIQUE: 2 radiographic view(s) of the chest. COMPARISON: None FINDINGS: LUNGS: Minor chronic lung changes are noted. The lungs are somewhat hyperexpanded. No consolidation, effusion or other acute process is seen. HEART/MEDIASTINUM: Cardiac silhouette normal in size. Mediastinal and hilar contours appear normal. LINES/TUBES: None. BONES: No acute osseous abnormality. IMPRESSION: No acute cardiopulmonary abnormality. Minor chronic changes are suspected THIS IS AN ELECTRONICALLY VERIFIED FINAL REPORT 11/07/2024 10:01 PM - Electronically signed by Stephan Glover M.D. KH: MARLENE Report ID: [id number] Reading Location: [id number] Procedure Note Stephan Glover MD - 11/07/2024 EXAM DESCRIPTION: XR CHEST PA LATERAL 2 VIEWS REASON FOR STUDY: Pre op testing Pre op for right shoulder replacement on November 25 HTN-medicated Noother respiratory issues TECHNIQUE: 2 radiographic view(s) of the chest. COMPARISON: None FINDINGS: LUNGS: Minor chronic lung changes are noted. The lungs are somewhat hyperexpanded. No consolidation, effusion or other acute process is seen. HEART/MEDIASTINUM: Cardiac silhouette normal in size. Mediastinal andhilar contours appear normal. LINES/TUBES: None. BONES: No acute osseous abnormality. IMPRESSION: No acute cardiopulmonary abnormality. Minor chronic changes are suspected THIS IS AN ELECTRONICALLY VERIFIED FINAL REPORT 11/07/2024 10:01 PM - Electronically signed by Stephan Glover M.D. KH: MARLENE Report ID: [id number] Reading Location: [place] [address] [place] Golden Rosenbaum MD IMG XR PROCEDURES Final Resu lt * Urinalysis reflex to microscopic and culture [...] tendency for uric acid stone formation. Source: HALFPOPS Current Interpretive Data was last revised on [...] MICROBIOLOGY - GENERAL O RDERABLES Final Result Performing Organization Address [facility] Co de Phone Number [facility] ([place]) [address] [facility] Department [place] [address] * ECG 12 lead (10/27/2024 11:38 AM CDT) 10/27/2024 11:3 5 AM CDT Narrative [facility] - 10/27/2024 12:52 PM CDT Vent Rate: 76 bpm RR Interval: 785 msec WV Interval: 162 msec QRS Duration: 87 msec QT Interval: 360 msec QTC Interval: 390 msec P-R-T [place]: 13 - -38 - 63 degrees IMPRESSION: SINUS RHYTHM WITH SINUS ARRHYTHMIA LEFT AXIS DEVIATION [QRS AXIS < -30] ABNORMAL ECG Electronically Signed By: Manuel Maxwell MD Golden Rosenbaum MD ECG ORDERABLES Final Result Performing Organization Address [facility] Co de Phone Number [facility] * eGFR (10/27/2024 11:00 AM CDT) [...] BLOOD ORDERABLES Final R esult [facility] [address] [facility] Department [place] [address] * (ABNORMAL) Differential, auto (10/27/2024 11:00 AM [...] BLOOD ORDERABLES Final R esult [facility] ([place]) [address] [facility] Department [place] [address] * CBC with auto differential (10/27/2024 11:00 [...] ([place]) MCV 89.6 81.3 - 96.4 fL [facility] ([place]) MCH 29.1 27.1 - 33.3 pg [facility] ([place]) MCHC 32.5 32.3 - 35.7 g/dL [facility] ([place]) RDW CV 13.5 11.1 - 14.9 % [facility] ([place] RDW SD 44.5 35.7 - 48.1 fL [facility] ([place] NRBC abs 0.00 0.00 - 0.01 K/cumm [facility] Blood 10/27/2024 11:0 0 AM CDT 10/27/2024 11:34 AM CDT Golden Rosenbaum MD LAB BLOOD ORDERABLES Final R esult Performing Organization Address [facility] Co de Phone Number [facility] [address] [place] [address] [place] [address] * Hemoglobin A1c (10/27/2024 11:00 AM CDT) Hgb A1C 5.6 4.0 - 5.6 % Estimated Average Glucose 114 mg/dL [facility] Comment: The ADA recommends reporting an estimated Average Glucose (eAG) with all Hemoglobin A1c results using the equation derived from a study of 507 normal and diabetic adults. Minority populations were underrepresented and children were not included. (Diabetes Care 31:8149-8068, 2008). The eAG is not equivalent to a fasting glucose. Blood 10/27/2024 11:0 0 AM CDT 10/27/2024 11:34 AM CDT Golden Rosenbaum MD LAB BLOOD ORDERABLES Final R esult Performing Organization Address City/[facility] Co de Phone Number [facility] [address] [facility] [place] [address] * (ABNORMAL) Comprehensive metabolic panel (10/27/2024 11:00 [...] MD LAB BLOOD ORDERABLES Final R esult [facility] ([place]) [address] [facility] Department [place] [address] from Last 3 Months Insurance MEDICARE [facility] MEDICARE [facility] MEDICARE Advance Directives For more information, please contact: [phone] * Full Code (Latest Code Status on File) Date Activated Date Inactivated Comments 11/25/2024 5:24 PM 11/26/2024 5:38 PM Care Teams Wastewater Treatment Supervisor Relationship Specialty Start Date End Date Toni Tracey MD [address] [place] [address] PCP - General 02/29/16 Sebastian Lowery OT Occupational Therapist Occupational Therapy 11/12/24 Burak Mari NP [address] [place] [address] [address] [place] [address] Nurse Practitioner Orthopedic Surgery 11/25/24
== END 2024-12-30 13:28 | disposition home or self-care (01) ==
PROVIDERS: PCP Internal Medicine; Visit Provider Nurse Practitioner Family
DX: R74.8 Abnormal levels of other serum enzymes (principal); R10.13 Epigastric pain
CPT/HCPCS: 36415; 80053; 80074; 82150; 82248; 82977; 83690; 85027

== ENCOUNTER 2024-12-31 09:05 | Outpatient (CLI) | payer MEDICARE, OTHER, SELFPAY ==
--- NOTE | ~2024-12-31 | US_ITS ---
EXAMINATION: US right upper quadrant DATE: 12/31/2024 09:28 INDICATION: Abnormal liver function tests. TECHNIQUE: Multiple grayscale and Doppler ultrasound images of the abdomen were obtained. COMPARISON: CT abdomen and pelvis 12/26/2024 FINDINGS: The visualized portions of the head, body, and tail of the pancreas are normal. Calcifications in the liver consistent with old granulomatous disease. There is normal flow in main portal vein. The gallbladder is absent. The common duct is not visualized. IMPRESSION: 1. No etiology for abnormal liver function tests. Reviewed, dictated and finalized at location E.
--- OUTSIDE RECORDS SUMMARY | 2024-12-31 09:51 | XMS_ITS | Encounter Summary ---
Author Organization [facility] Healthcare Address [address] [place] [address] Care Team Providers Care Dairy Farmer Name Role Phone Toni Tracey MD Primary Care Provider + [phone] Sebastian Lowery OT Unavailable Unavailable Burak Mari TAIL TRIMMER Unavailable [phone] Encounter Details Date Type Department Care Team (Late st Contact Info) Description 12/16/2019 Telephone [facility] - Imaging [address] [place] [address] Transcribed Order, Provider Social History Tobacco Use Types Packs/Day Years Used Date Smoking Tobacco: Never Smokeless Tobacco: Never Comments No Sex and Gender Information Value Date Recorded Sex Assigned at Not on file 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
--- OUTSIDE RECORDS SUMMARY | 2024-12-31 09:51 | XMS_ITS | Clinical Summary ---
Author Organization [facility] [employer] Address [address] [facility] [place] [address] Care Team Providers Care Vp Transportation Name Role Phone Unavailable Primary Care Provider Unavailabl e Source Comments [facility] [employer],non-owned Affiliates and Associated Physician Practices is amultiple site organization consisting of ambulatory clinics and hospital sitesin [place], [place], [place] and [place]. This disclosure is being madepursuant to the Care Everywhere program and may not contain all information available regarding this patient. 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
--- OUTSIDE RECORDS SUMMARY | 2024-12-31 09:52 | XMS_ITS | Clinical Summary ---
Author Organization [facility] Address [address] [place] [address] Care Team Providers Care Director Of Vendor Management Name Role Phone Toni Tracey MD Primary Care Provider [phone] Sebastian Lowery OT Unavailable Unavailable Burak Mari GOLF CADDY Unavailable [phone] Allergies No known active allergies Medications ALPRAZolam (XANAX) 0.25 mg tablet prn 0 0 4 Active multivitamin capsule 0 0 4 Active CYANOCOBALAMIN /FOLIC ACID (VITAMIN [id number]-[id number] ACID) 1,000-400 mcg tablet, sublingual 0 0 [...] Department Care Team Description 12/16/2024 Orders Only [facility] Orthopedics and Sports Medicine [address] [place] [address] [address], [place] [address] Burak Mari NP Status post reverse total shoulder replacement, right (Primary Dx) 12/09/2024 1:00 PM CDT Telemedicine [facility] Medicine [address] [place] [address] [address] [place] [phone] Burak Mari, TANIYA Status post reverse total shoulder replacement, right (Primary Dx) 12/09/2024 Orders Only [facility]ics and Sports Medicine [address] [place] [address] [address] [place] [phone] Burak Mari, TANIYA Status post reverse total shoulder replacement, right (Primary Dx) 12/09/2024 Telephone [facility]ics [facility] Sports Medicine [address] [place] [address] [address] [place] [phone] Burak Mari, TANIYA 11/27/2024 [facility] Post Discharge Follow up phone call [facility] Surgery Care [address] [place] [address] Rebekah Jarvis 11/25/2024 1:49 PM CDT Anesthesia Event [facility] Operating Room [address] [place] [address] Raul Camarena MD Alexander, Jeffrey Michael, DO 11/25/2024 1:30 PM CDT - 11/25/2024 4:00 PM CDT Surgery [facility] Operating Room 1 [place] [address] Golden Rosenbaum MD Right reverse total shoulder arthroplasty 11/25/2024 11:18 AM CDT - 11/26/2024 1:38 PM CDT Hospital Encounter [facility] [address] [place] [address] Golden Rosenbaum MD Rotator cuff tear arthropathy of right shoulder Discharge Disposition: Discharge to home or self care 11/20/2024 4:03 PM CDT - 11/20/2024 11:59 PM CDT Hospital Encounter [address] [address] Rotator cuff arthropathy of right shoulder Discharge Disposition: Discharge to home or self care 11/19/2024 Telephone [facility] Orth[facility]ics [facility] Sports Medicine [address] [place] [address] [address] [place] [address] Golden Rosenbaum MD 11/19/2024 Telephone [facility] Center 1 [place] [address] Mariia Shook 11/19/2024 Telephone [facility] Imaging Center 1 [place] [address] Mariia Shook 11/17/2024 Telephone [facility] Medical [facility] Orthopedics and Sports Medicine [address] [facility] [address] [place] [address] Golden Rosenbaum MD 11/12/2024 Telephone [facility] Imaging Center 1 [place] [address] Obdulio Heike Tony 10/27/2024 10:55 AM CDT Lab [address] [address] Rotator cuff arthropathy of right shoulder; Encounter for screening for diabetes mellitus 10/27/2024 10:53 AM CDT - 10/27/2024 11:59 PM CDT Hospital Encounter [facility] 1 [place] [address] Rotator cuff arthropathy of right shoulder Discharge Disposition: Discharge to home or self care 10/27/2024 10:52 AM CDT - 10/27/2024 11:59 PM CDT Hospital Encounter [facility] Cardiology 1 [place] [address] Rotator cuff arthropathy of right shoulder Discharge Disposition: Discharge to home or self care 09/30/2024 Documentation [facility] Medical [facility] Orth[facility]ics [facility] Sports Medicine [address] [facility] [address] [place] [address] Ceci Brown MA from Last 3 Months [...] on file 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 Gender Identity Not on file Sexual Orientation [...] 01/28/2015, 01/14 Medical Devices Implanted Type Area Inside Sales Associate Device Identifier Shelf Expiration Date Model / Serial / Lot Exactech Component 36mm Glenoid Glenosphere Reverse Shoulder 320-31-36 - [id number] - [id number] Implanted:Qty: 1 on 11/25/2024 by Golden Rosenbaum MD at [facility] Right: Shoulder [employer] [id number] 07/08/2034 320-31-36 / [id number] / Exactech Equinoxe Lock Reverse Shoulder Glenosphere Screw Bone 320-15-05 - [id number] - [id number] Implanted:Qty: 1 on 11/25/2024 by Golden Rosenbaum MD at [facility] Right: Shoulder [employer] [id number] 06/17/2029 320-15-05 / [id number] / Ex[employer]ech Equinoxe Small Reverse Superior Augment Shoulder 10d Plate 320-35-02 - [id number] - [id number] Implanted:Qty: 1 on 11/25/2024 by Golden Rosenbaum MD at [facility] Right: Shoulder [employer] [id number] 06/17/2034 320-35-02 / [id number] / Ex[employer]ech Equinoxe 4.5mm 34mm Kit Compression Lock Cap Reverse Shoulder 320-20-34 - [id number] - [id number] Implanted:Qty: 1 on 11/25/2024 by Golden Rosenbaum MD at [facility] Right: Shoulder [employer] [id number] 12/04/2028 320-20-34 / [id number] / Ex[employer]ech Equinoxe 4.5mm 34mm Kit Compression Lock Cap Reverse Shoulder 320-20-34 - [id number] - [id number] Implanted:Qty: 1 on 11/25/2024 by Golden Rosenbaum MD at [facility] Right: Shoulder [employer] [id number] 12/23/2028 320-20-34 / [id number] / [employer] Univers Revers Arthrex 5mm Stem Humeral Sterile Ar-9501-05p - [id number] Implanted:Qty: 1 on 11/25/2024 by Golden Rosenbaum MD at [facility] Right: Shoulder [employer] [id number] 08/13/2029 AR-9501-0 5P 10061 [employer] Implant Suture Cup Humeral Reverse Right Univers Revers +2x33mm Titanium [id number] - [id number] Implanted:Qty: 1 on 11/25/2024 by Golden Rosenbaum MD at [facility] Right: Shoulder [employer] [id number] 07/14/2029 AR-9502F- 33RCPC .[id number] [employer] Insert Humeral Combo Reverse Poly Univers Revers +3x33mm [id number] - [id number] Implanted:Qty: 1 on 11/25/2024 by Golden Rosenbaum MD at [facility] Right: Shoulder [employer] [id number] 12/14/2028 AR-9503-3 [id number]-.[id number] Procedures Procedure Name Priority Date/Time Associated Diagnosis Comments XR SHOULDER RIGHT 2 OR MORE VIEWS IP Routine 11/25/2024 4:08 PM CDT GRAM STAIN - MANNYNER NABEEL STAT 11/25/2024 3:14 PM CDT AEROBIC AND ANAEROBIC CULTURE AND GRAM STAIN STAT 11/25/2024 3:14 PM CDT CA AN ELECTIVE ENDOTRACHEAL AIRWAY Routine 11/25/2024 2:16 [...] Mp Camacho M.D. RB: RB Report ID: [id number] Reading Location: [id number] Procedure Note Mp Camacho MD - 11/26/2024 [...] Mp Camacho M.D. RB: RB Report ID: [id number] Reading Location: [id number] Rima FLORES IMG XR PROCEDURES Feli l Result * Gram stain Miscellaneous Shoulder, right (11/25/2024 3:14 PM CDT) Direct Specimen Exam Stain: Rare polymorphonuclear leukocytes seen. No organisms seen. Miscellaneous (Shoulder, right) 11/25/2024 3:14 PM CDT 11/25/2024 3:24 PM CDT Golden Rosenbaum MD LAB MICROBIOLOGY - GENERAL O RDERABLES Final Result [facility] [place] [address] [facility] Department [place] [address] * Aerobic and anaerobic culture and gram stain Wound Shoulder, right (11/25/2024 3:14 PM CDT) Direct Specimen Exam Stain: Few polymorphonuclear leukocytes seen. No organisms seen. Comment:Testing performed by : [facility], [address] [place]., [address] Report Final Report: No growth [facility] ([place]) Comment:Testing performed by : [facility], [address] [place]., [address] Wound (Shoulder, right) 11/25/2024 3:14 PM CDT 11/25/2024 6:12 PM CDT Narrative [facility]) - 12/05/2024 10:06 AM CDT Right shoulder stat culture Specimen received on an ESwab. Testing performed by [facility] Microbiology [facility] ([phone]) Specimens submitted from normally sterile body sites [...] RDERABLES Final Result [facility] [address] [facility] Department [place] [address] * CA AN ELECTIVE ENDOTRACHEAL AIRWAY (11/25/2024 2:16 PM CDT) Narrative Sintia Sandoval CRNA - 11/25/2024 2:16 PM CDT Sintia Sandoval CRNA 11/25/2024 2:17 PM Airway Patient location: OR Urgency: elective Date/time: 11/25/2024 1:56 PM Indications for airway management: anesthesia Difficult airway: no Staff: Placed by: KNITTING MACHINE TENDER: Sintia Sandoval CRNA Emergent airway documentation: Risks [...] Rosenbaum MD LAB BLOOD ORDERABLES Final R [facility] hospital Performing Organization Address City/[facility] Co de Phone Number [facility] [address] [facility] [place] [address] * aPTT (11/25/2024 11:52 AM CDT) aPTT 33 26 - 38 sec [facility]) Comment: Interpretive Data Heparin therapeutic range: 66.0 - 100.0 seconds. Range based on correlation with therapeutic heparin activity range of 0.3 - 0.7 Units/mL. Current interpretive data was last revised on 2023. Blood 11/25/2024 11:5 2 AM CDT 11/25/2024 11:55 AM CDT Golden Rosenbaum MD LAB BLOOD ORDERABLES Final R esult [facility] [address] [facility] Department [place] [address] * Protime-INR (11/25/2024 11:52 AM CDT) PT 11.8 10.2 - 13.5 sec [facility] [place] INR 1.05 0.90 - 1.20 [facility] ([place]) Comment: Interpretive data Oral anticoagulant therapeutic ranges: Venous thromboembolism prophylaxis or treatment: 2.0-3.0 CARDIOLOGY Standard range: 2.0-3.0 High-intensity range: 2.5-3.5 Refer to indication-specific guidelines for appropriate target ranges for prosthetic heart valve replacement. Current interpretive data was last revised on 2019. Blood 11/25/2024 11:5 2 AM CDT 11/25/2024 11:55 AM CDT Golden Rosenbaum MD LAB BLOOD ORDERABLES Final R esult [facility] ([place] [address] [facility] Department [place] [address] * Surgical pathology (11/25/2024 9:27 AM CDT) Tissue (Bone Fragment(s),) 11/25/2024 2:45 PM CDT Comment:Placed in formalin a t time of drop off Narrative PATHOLOGY [facility] ([place]) - 12/01/2024 11:47 AM CDT EPIC results best viewed via link to PDF [facility] Department of Pathology [address] [place] [address] Note to Patients: This report may contain [...] Final Report Patient Name: RHINA FERREIRA Address: [address] [place] [address]- Gender: F : 1940 (Age: 84) Service: Surgery Location: [facility] Hospital #: [id number] Patient Type: DAVID EP OP in bed [...] determined by the Surgical Pathology Department at [facility] as part of an ongoing plant quality manager program and in compliance with federally mandated [...] characteristics determined by the Surgical Pathology Department [facility]. It has not been cleared or approved by the U. S. Food and Drug Administration. Note for decalcified specimens: This assay has not been validated on decalcified tissues. Results should be interpreted with caution given the possibility of false negativity on decalcified specimens Golden Rosenbaum MD LAB PATHOLOGY ORDERABLES [facility] Result Performing Organization Address City/State/[facility] Co de Phone Number PATHOLOGY [facility] ([facility] 1 [place] [address] * CT Shoulder Right WO [...] is mild osteoarthritis of the glenohumeral joint. [place] is seen of the greater tuberosity from [...] Ken Blas M.D. MJ: BESS Report ID: [id number] Reading Location: [id number] Procedure Note Ken Blas MD - 11/21/2024 EXAM DESCRIPTION: CT SHOULDER [...] There is mild osteoarthritis of the glenohumeral joint.[place] is seen of the greater tuberosity from [...] Ken Blas M.D. MJ: BESS Report ID: [id number] Reading Location: [place] [address] Golden Rosenbaum MD IMG CT PROCEDURES Final [...] Stephan Glover M.D. KH: MARLENE Report ID: [id number] Reading Location: [id number] Procedure Note Stephan Glover MD - 11/07/2024 [...] Stephan Glover M.D. KH: MARLENE Report ID: [id number] Reading Location: [place] [address] us Golden Rosenbaum MD IMG XR PROCEDURES [...] tendency for uric acid stone formation. Source: Backpack Current Interpretive Data was last revised on [...] O RDERABLES Final Result Performing Organization Address [facility] Co de Phone Number [facility] ([place]) [address] [facility] Department [place] [address] * ECG 12 lead (10/27/2024 11:38 AM CDT) 10/27/2024 11:3 5 AM CDT Narrative [facility] - 10/27/2024 12:52 PM CDT Vent Rate: 76 bpm RR Interval: 785 msec CA Interval: 162 msec QRS Duration: 87 msec QT Interval: 360 msec QTC Interval: 390 msec P-R-T [employer]: 13 - -38 - 63 degrees IMPRESSION: SINUS RHYTHM WITH SINUS ARRHYTHMIA LEFT AXIS DEVIATION [QRS AXIS < -30] ABNORMAL ECG Electronically Signed By: Manuel Maxwell MD Golden Rosenbaum MD ECG ORDERABLES Final Result Performing Organization Address [facility] Co de Phone Number [facility] * eGFR (10/27/2024 11:00 AM CDT) eGFR [...] AM CDT 10/27/2024 11:34 AM CDT us Goledn Rosenbaum MD LAB BLOOD ORDERABLES Final R esult [facility] [address] [facility] Department [place] [address] * (ABNORMAL) Differential, auto (10/27/2024 11:00 AM [...] BLOOD ORDERABLES Final R esult [facility] [address] [facility] Department [place] [address] * CBC with auto differential (10/27/2024 11:00 [...] MCV 89.6 81.3 - 96.4 fL [facility] ([place]) MCH 29.1 27.1 - 33.3 pg [facility] ([place]) MCHC 32.5 32.3 - 35.7 g/dL [facility] ([place]) RDW CV 13.5 11.1 - 14.9 % [facility]) RDW SD 44.5 35.7 - 48.1 fL [facility] ([place]) NRBC abs 0.00 0.00 - 0.01 K/cumm [facility] Blood 10/27/2024 11:0 0 AM CDT 10/27/2024 11:34 AM CDT Golden Rosenbaum MD LAB BLOOD ORDERABLES Final R esult Performing Organization Address [facility] Co de Phone Number [facility] [address] [place] [address] [place] [address] * Hemoglobin A1c (10/27/2024 11:00 AM CDT) Hgb A1C 5.6 4.0 - 5.6 % Estimated Average Glucose 114 mg/dL [facility]) Comment: The ADA recommends reporting an estimated Average Glucose (eAG) with all Hemoglobin A1c results using the equation derived from a study of 507 normal and diabetic adults. Minority populations were underrepresented and children were not included. (Diabetes Care 31:1831-7824, 2008). The eAG is not equivalent to a fasting glucose. Blood 10/27/2024 11:0 0 AM CDT 10/27/2024 11:34 AM CDT Golden Rosenbaum MD LAB BLOOD ORDERABLES Final R esult Performing Organization Address City/[facility] Co de Phone Number [facility] [address] [facility] [place] [address] * (ABNORMAL) Comprehensive metabolic panel (10/27/2024 11:00 [...] MD LAB BLOOD ORDERABLES Final R esult [facility]) [address] [facility] Department [place] [address] from Last 3 Months Insurance MEDICARE [facility] MEDICARE [facility] MEDICARE Advance Directives For more information, please contact: [phone] * Full Code (Latest Code Status on File) Date Activated Date Inactivated Comments 11/25/2024 5:24 PM 11/26/2024 5:38 PM Care Teams Director Of Vendor Management Relationship Specialty Start Date End Date Toni Tracey MD [address] [place] [address] PCP - General 02/29/16 Sebastian Lowery OT Occupational Therapist Occupational Therapy 11/12/24 Burak Mari NP [address] [place] [address] [address] [place] [address] Nurse Practitioner Orthopedic Surgery 11/25/24
== END 2024-12-31 09:06 | disposition home or self-care (01) ==
PROVIDERS: PCP Internal Medicine; Visit Provider Nurse Practitioner Family
DX: R74.8 Abnormal levels of other serum enzymes (principal)
CPT/HCPCS: 76705

== ENCOUNTER 2025-01-02 10:32 | Outpatient (CLI) | payer MEDICARE, SELFPAY ==
--- OUTSIDE RECORDS SUMMARY | 2025-01-02 10:36 | XMS_ITS | Encounter Summary ---
Author Organization [facility] Address [address] [place] [address] Care Team Providers Care Plastic Battery Assembler Name Role Phone Toni Tracey MD Primary Care Provider [phone] Sebastian Lowery OT Unavailable Unavailable Burak Mari MAINTENANCE SHOP CLERK Unavailable [phone] Encounter Details Date Type Department Care Team (Late st Contact Info) Description 12/16/2019 Telephone 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 Gender Identity Not on file Sexual Orientation Not on file documented as of this encounter Plan of Treatment Not on file documented as of this encounter Visit Diagnoses Not on filedocumented in this encounter Care Teams Plastic Battery Assembler Relationship Specialty Start Date End Date Toni Tracey MD [address] [place], [place] [id number] PCP - General 02/29/16 Sebastian Lowery, OT Occupational Therapist Occupational Therapy 11/12/24 Burak Mari NP [address] [place] [address] [address] [place] [address] Nurse Practitioner Orthopedic Surgery 11/25/24 documented as of this encounter
--- OUTSIDE RECORDS SUMMARY | 2025-01-02 10:36 | XMS_ITS | Clinical Summary ---
Author Organization [facility] Address [address] [place] [address] Care Team Providers Care Oxygen Therapist Name Role Phone Toni Tracey MD Primary Care Provider [phone] Sebastian Lowery OT Unavailable Unavailable Burak Mari CASING COOKER Unavailable [phone] Allergies No known active allergies Medications ALPRAZolam (XANAX) 0.25 mg tablet prn 0 0 4 Active multivitamin capsule 0 0 4 Active CYANOCOBALAMIN /FOLIC ACID (VITAMIN M64-BTPTH ACID) 1,000-400 mcg tablet, sublingual 0 0 [...] Department Care Team Description 12/16/2024 Orders Only [facility] [address] [place] [address] [address] [address] Burak Mari NP Status post reverse total shoulder replacement, right (Primary Dx) 12/09/2024 1:00 PM CDT Telemedicine [facility] [address] [place] [address] [address] [place] [phone] Burak Mari, TANIYA Status post reverse total shoulder replacement, right (Primary Dx) 12/09/2024 Orders Only [facility] [address] [place] [address] [address] [place] [phone] Burak Mari, TANIYA Status post reverse total shoulder replacement, right (Primary Dx) 12/09/2024 Telephone [facility] [address] [place] [address] [address] [place] [phone] Burak Mari, TANIYA 11/27/2024 [facility] Post Discharge Follow up phone call [facility] 1 [place] [address] Rebekah Jarvis 11/25/2024 1:49 PM CDT Anesthesia Event [facility] Operating Room 1 [place] [address] Raul Camarena MD Alexander, Jeffrey Michael, DO 11/25/2024 1:30 PM CDT - 11/25/2024 4:00 PM CDT Surgery [facility] Operating Room 1 [place] [address] Golden Rosenbaum MD Right reverse total shoulder arthroplasty 11/25/2024 11:18 AM CDT - 11/26/2024 1:38 PM CDT Hospital Encounter [facility] 1 [place] [address] Golden Rosenbaum MD Rotator cuff tear arthropathy of right shoulder Discharge Disposition: Discharge to home or self care 11/20/2024 4:03 PM CDT - 11/20/2024 11:59 PM CDT Hospital Encounter [address] [address] Rotator cuff arthropathy of right shoulder Discharge Disposition: Discharge to home or self care 11/19/2024 Telephone [facility] [address] [place] [address] [address] [place] [address] Golden Rosenbaum MD 11/19/2024 Telephone [facility] 1 [place] [address] Mariia Shook 11/19/2024 Telephone [facility] 1 [place] [address] Mariia Shook 11/17/2024 Telephone [facility] Orthopedics and Sports Medicine [address] [facility] [address] [place] [phone] Golden Rosenbaum MD 11/12/2024 Telephone [facility] 1 [place] [address] ObdulioJulyBernie 10/27/2024 10:55 AM CDT Lab [address] [address] Rotator cuff arthropathy of right shoulder; Encounter for screening for diabetes mellitus 10/27/2024 10:53 AM CDT - 10/27/2024 11:59 PM CDT Hospital Encounter [facility] [address] [place] [address] Rotator cuff arthropathy of right shoulder Discharge Disposition: Discharge to home or self care 10/27/2024 10:52 AM CDT - 10/27/2024 11:59 PM CDT Hospital Encounter [facility] Cardiology 1 [place] [address] Rotator cuff arthropathy of right shoulder Discharge Disposition: Discharge to home or self care from Last 3 Months Surgical History Surgery [...] on file 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 Gender Identity Not on file Sexual Orientation [...] 01/28/2015, 01/14 Medical Devices Implanted Type Area Hide Salter Device Identifier Shelf Expiration Date Model / Serial / Lot Exactech Component 36mm Glenoid Glenosphere Reverse Shoulder 320-31-36 - [id number] - [id number] Implanted:Qty: 1 on 11/25/2024 by Golden Rosenbaum MD at [facility] Right: Shoulder Exactech [id number] 07/08/2034 320-31-36 / [id number] / Exactech Equinoxe Lock Reverse Shoulder Glenosphere Screw Bone 320-15-05 - [id number] - [id number] Implanted:Qty: 1 on 11/25/2024 by Golden Rosenbaum MD at [facility] Right: Shoulder Exactech [id number] 06/17/2029 320-15-05 / [id number] / Exactech Equinoxe Small Reverse Superior Augment Shoulder 10d Plate 320-35-02 - [id number] - [id number] Implanted:Qty: 1 on 11/25/2024 by Golden Rosenbaum MD at [facility] Right: Shoulder Exactech [id number] 06/17/2034 320-35-02 / [id number] / Exactech Equinoxe 4.5mm 34mm Kit Compression Lock Cap Reverse Shoulder 320-20-34 - [id number] - [id number] Implanted:Qty: 1 on 11/25/2024 by Golden Rosenbaum MD at [facility] Right: Shoulder Exactech [id number] 12/04/2028 320-20-34 / [id number] / Exactech Equinoxe 4.5mm 34mm Kit Compression Lock Cap Reverse Shoulder 320-20-34 - [id number] - [id number] Implanted:Qty: 1 on 11/25/2024 by Golden Rosenbaum MD at [facility] Right: Shoulder Exactech [id number] 12/23/2028 320-20-34 / [id number] / Ar[employer]rex [employer] Univers Revers Arthrex 5mm Stem Humeral Sterile Ar-9501-05p - [id number] Implanted:Qty: 1 on 11/25/2024 by Golden Rosenbaum MD at [facility] Right: Shoulder [employer] [id number] 08/13/2029 AR-9501-0 5P / [id number] [employer] Inc Implant Suture Cup Humeral Reverse Right Univers Revers +2x33mm Titanium [id number] - [id number] Implanted:Qty: 1 on 11/25/2024 by Golden Rosenbaum MD at [facility] Right: Shoulder [employer] Inc [id number] 07/14/2029 AR-9502F- [id number] Ar[employer]rex Inc Insert Humeral Combo Reverse Poly Univers Revers +3x33mm [id number] - [id number] Implanted:Qty: 1 on 11/25/2024 by Golden Rosenbaum MD at [facility] Right: Shoulder [employer] [id number] 12/14/2028 AR-9503-3 [id number] Procedures Procedure Name Priority Date/Time Associated Diagnosis Comments XR SHOULDER RIGHT 2 OR MORE VIEWS IP Routine 11/25/2024 4:08 PM CDT GRAM STAIN - SOLOMON LEES STAT 11/25/2024 3:14 PM CDT AEROBIC AND ANAEROBIC CULTURE AND GRAM STAIN STAT 11/25/2024 3:14 PM CDT RI AN ELECTIVE ENDOTRACHEAL AIRWAY Routine 11/25/2024 2:16 [...] Electronically signed by Mp Camacho M.D. RB: ADILSON Report ID: [id number] Reading Location: [id number] Procedure Note Mp Camacho MD - 11/26/2024 [...] Electronically signed by Mp Camacho M.D. RB: ADILSON Report ID: [id number] Reading Location: [id number] Rima FLORES IMG XR PROCEDURES Feli l Result * Gram stain Miscellaneous Shoulder, right (11/25/2024 3:14 PM CDT) Direct Specimen Exam Stain: Rare polymorphonuclear leukocytes seen. No organisms seen. Miscellaneous (Shoulder, right) 11/25/2024 3:14 PM CDT 11/25/2024 3:24 PM CDT Golden Rosenbaum MD LAB MICROBIOLOGY - GENERAL O RDERABLES Final Result SOLOMON HERNANDEZ ([place]) [address] [facility] Department [place] [address] * Aerobic and anaerobic culture and gram stain Wound Shoulder, right (11/25/2024 3:14 PM CDT) Direct Specimen Exam Stain: Few polymorphonuclear leukocytes seen. No organisms seen. Comment:Testing performed by : [facility], [address] [facility], [place]., [address] Report Final Report: No growth SOLOMON BROOKS) Comment:Testing performed by : [facility], [address] [facility] [place] [address] Wound (Shoulder, right) 11/25/2024 3:14 PM CDT 11/25/2024 6:12 PM CDT Bruno HERNANDEZ ([place]) - 12/05/2024 10:06 AM CDT Right shoulder stat culture Specimen received on an ESwab. Testing performed by [facility] Microbiology Laboratory ([phone]) Specimens submitted from normally sterile body sites [...] - GENERAL O RDERABLES Final Result SOLOMON DAVID ([place]) 1 [facility] Department [place] [address] * RI AN ELECTIVE ENDOTRACHEAL AIRWAY (11/25/2024 2:16 PM CDT) Narrative Sintia Sandoval CRNA - 11/25/2024 2:16 PM CDT Sintia Sandoval CRNA 11/25/2024 2:17 PM Airway Patient location: OR Urgency: elective Date/time: 11/25/2024 1:56 PM Indications for airway management: anesthesia Difficult airway: no Staff: Placed by: SODA CLERK: Sintia Sandoval CRNA Emergent airway documentation: Risks [...] ORDERABLES Final R esult Performing Organization Address City/[facility] Co de Phone Number SOLOMON COUNT INCLUDES THE [facility] ([place]) [address] [facility] [place] [address] * aPTT (11/25/2024 11:52 AM CDT) aPTT 33 26 - 38 sec SOLOMON HERNANDEZ ([place]) Comment: Interpretive Data Heparin therapeutic range: 66.0 - 100.0 seconds. Range based on correlation with therapeutic heparin activity range of 0.3 - 0.7 Units/mL. Current interpretive data was last revised on 2023. Blood 11/25/2024 11:5 2 AM CDT 11/25/2024 11:55 AM CDT Golden Rosenbaum MD LAB BLOOD ORDERABLES Final R esult Performing Organization Address City/[facility]/ZIP Co de Phone Number SOLOMON COUNT INCLUDES THE [facility] ([place]) 1 [facility] of [employer] [place] [address] * Protime-INR (11/25/2024 11:52 AM CDT) PT 11.8 10.2 - 13.5 sec SOLOMON COUNT INCLUDES THE [facility] ([place]) INR 1.05 0.90 - 1.20 [facility] ([place]) Comment: Interpretive data Oral anticoagulant therapeutic ranges: Venous thromboembolism prophylaxis or treatment: 2.0-3.0 CARDIOLOGY Standard range: 2.0-3.0 High-intensity range: 2.5-3.5 Refer to indication-specific guidelines for appropriate target ranges for prosthetic heart valve replacement. Current interpretive data was last revised on 2019. Blood 11/25/2024 11:5 2 AM CDT 11/25/2024 11:55 AM CDT us Golden Rosenbaum MD LAB BLOOD ORDERABLES Final R esult [facility]) [address] [place] [address] Department [place] [address] * Surgical pathology (11/25/2024 9:27 AM CDT) Tissue (Bone Fragment(s),) 11/25/2024 2:45 PM CDT Comment:Placed in formalin a t time of drop off Narrative PATHOLOGY COUNT INCLUDES THE [facility] ([place]) - 12/01/2024 11:47 AM CDT EPIC results best viewed via link to PDF [facility] Department of Pathology [address] [place] [address] Note to Patients: This report may contain [...] Final Report Patient Name: RHINA FERREIRA Address: [address] [place] [address]- Gender: F : 1940 (Age: 84) Service: Surgery Location: [facility] Hospital #: [id number] Patient Type: COUNT INCLUDES THE [facility] EP OP in bed Taken: 11/25/2024 Received: [...] determined by the Surgical Pathology Department at [facility] as part of an ongoing supplier quality specialist program and in compliance with federally mandated [...] characteristics determined by the Surgical Pathology Department [facility]. It has not been cleared or approved by the U. S. Food and Drug Administration. Note for decalcified specimens: This assay has not been validated on decalcified tissues. Results should be interpreted with caution given the possibility of false negativity on decalcified specimens us Golden Rosenbaum MD LAB PATHOLOGY ORDERABLES Fin al Result PATHOLOGY COUNT INCLUDES THE [facility] ([place]) 1 [place] [address] * CT Shoulder Right WO [...] is mild osteoarthritis of the glenohumeral joint. [place] is seen of the greater tuberosity from [...] Ken Blas M.D. MJ: BESS Report ID: [id number] Reading Location: [id number] Procedure Note Ken Blas MD - 11/21/2024 [...] There is mild osteoarthritis of the glenohumeral joint.[place] is seen of the greater tuberosity from [...] Ken Blas M.D. MJ: BESS Report ID: [id number] Reading Location: [id number] us Golden Rosenbaum MD IMG CT PROCEDURES Final [...] 11/07/2024 10:01 PM - Electronically signed by Stephna Glover M.D. KH: MARLENE Report ID: [id number] Reading Location: [id number] Procedure Note Stephan Glover MD - 11/07/2024 [...] Stephan Glover M.D. KH: MARLENE Report ID: [id number] Reading Location: [place] [address] Golden Rosenbaum MD IMG XR PROCEDURES Final [...] tendency for uric acid stone formation. Source: Infusion Resource Current Interpretive Data was last revised on 2017 Protein, ur ql Negative Negative [facility] ([place]) Glucose, ur ql Negative Negative [facility] ([place]) Ketones, ur Negative Negative [facility] ([place]) Bilirubin, ur Negative Negative [facility] ([place]) Blood, ur Negative Negative [facility] ([place]) Urobilinogen, ur <2.0 <2.0 mg/dL [facility] ([place]) Nitrite, ur Negative Negative [facility] A ([place]) Leukocyte esterase, ur Negative Negative [facility] ([place]) UA reflex comment Reflex conditions for microscopic UA and culture not met. MANNYVINH COUNT INCLUDES THE [facility] ([place]) Urine, clean voided 10/27/2024 11:39 AM CDT 10/27/2024 11:39 AM CDT Golden Rosenbaum MD LAB MICROBIOLOGY - GENERAL O RDERABLES Final Result Performing Organization Address City/[facility]/ZIP Co de Phone Number SOLOMON COUNT INCLUDES THE [facility] ([place]) 1 [facility] [place] [address] * ECG 12 lead (10/27/2024 11:38 AM CDT) 10/27/2024 11:3 5 AM CDT Narrative [facility] - 10/27/2024 12:52 PM CDT Vent Rate: 76 bpm RR Interval: 785 msec RI Interval: 162 msec QRS Duration: 87 msec QT Interval: 360 msec QTC Interval: 390 msec P-R-T [place]: 13 - -38 - 63 degrees IMPRESSION: SINUS RHYTHM WITH SINUS ARRHYTHMIA LEFT AXIS DEVIATION [QRS AXIS < -30] ABNORMAL ECG Electronically Signed By: Manuel Maxwell MD Golden Rosenbaum MD ECG ORDERABLES Final Result Performing Organization Address [facility] Co de Phone Number [facility] * eGFR (10/27/2024 11:00 AM CDT) [...] BLOOD ORDERABLES Final R esult SOLOMON HERNANDEZ ([place]) 1 [facility] Department [place] [address] * (ABNORMAL) Differential, auto (10/27/2024 11:00 AM [...] Final R esult [facility] ([place]) [address] [facility] Department [place] [address] * CBC with auto differential (10/27/2024 11:00 [...] ([place]) MCHC 32.5 32.3 - 35.7 g/dL [facility] ([place]) RDW CV 13.5 11.1 - 14.9 % [facility] ([place]) RDW SD 44.5 35.7 - 48.1 fL [facility] ([place]) NRBC abs 0.00 0.00 - 0.01 K/cumm [facility] ([place]) Blood 10/27/2024 11:0 0 AM CDT 10/27/2024 11:34 AM CDT Golden Rosenbaum MD LAB BLOOD ORDERABLES Final R esult Performing Organization Address City/[facility] Co de Phone Number [facility] ([place]) 1 [facility] [place] [address] * Hemoglobin A1c (10/27/2024 11:00 AM CDT) Hgb A1C 5.6 4.0 - 5.6 % Estimated Average Glucose 114 mg/dL [facility] ([place]) Comment: The ADA recommends reporting an estimated Average Glucose (eAG) with all Hemoglobin A1c results using the equation derived from a study of 507 normal and diabetic adults. Minority populations were underrepresented and children were not included. (Diabetes Care 31:0488-7042, 2008). The eAG is not equivalent to a fasting glucose. Blood 10/27/2024 11:0 0 AM CDT 10/27/2024 11:34 AM CDT Golden Rosenbaum MD LAB BLOOD ORDERABLES Final R esult [facility] ([place]) 1 [facility] [place] [address] * (ABNORMAL) Comprehensive metabolic panel (10/27/2024 11:00 AM CDT) Sodium 135 135 - 145 mmol/L Potassium, pl 4.4 3.3 - 4.9 mmol/L [facility] ([place]) Chloride 96(L) 97 - 110 mmol/L [facility] ([place]) CO2 25 22 - 32 mmol/L [...] Final R esult [facility] ([place]) [address] [facility] Department [place] [address] from Last 3 Months Insurance MEDICARE [facility] Address: [address] [address] [place] [address] [employer] [place] MEDICARE [employer] [place] MEDICARE [facility] Advance Directives For more information, please contact: [phone] * Full Code (Latest Code Status on File) Date Activated Date Inactivated Comments 11/25/2024 5:24 PM 11/26/2024 5:38 PM Care Teams Oxygen Therapist Relationship Specialty Start Date End Date Toni Tracey MD [address] [place] [address] PCP - General 02/29/16 Sebastian Lowery, OT Occupational Therapist Occupational Therapy 11/12/24 Burak Mari NP [address] [place] [address] [address] [place] [address] Nurse Practitioner Orthopedic Surgery 11/25/24
--- OUTSIDE RECORDS SUMMARY | 2025-01-02 10:36 | XMS_ITS | Clinical Summary ---
Author Organization [facility] Address [facility] [place] [address] Care Team Providers Care Heel Edge Inker Machine Name Role Phone Unavailable Primary Care Provider [...]
--- OUTSIDE RECORDS SUMMARY | 2025-01-02 10:36 | XMS_ITS | Clinical Summary ---
Author Organization [facility] Address [address] [facility] [place] [address] Care Team Providers Care Hopper Attendant Name Role Phone Unavailable Primary Care Provider Unavailabl e Source Comments [facility],non-owned Affiliates and Associated Physician Practices is amultiple site organization consisting of ambulatory clinics and hospital sitesin [place], [place], [place] and [place]. This disclosure is being madepursuant to the Care Everywhere program and may not contain all information available regarding this patient. 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
[2025-01-02 11:19] LABS: Alanine Aminotransferase 215 U/L (6-35); Albumin Level 4.3 g/dL (3.5-5.1); Alkaline Phosphatase > 1000 U/L (38-126); Anion Gap 11 mmol/L (4-12); Aspartate Amino Transferase 181 U/L (14-36); Bilirubin,Total 1.7 mg/dL (0.2-1.3); Blood Urea Nitrogen 19 mg/dL (7-17); Calcium 9.6 mg/dL (8.4-10.2); Carbon Dioxide 28 mmol/L (22-30); Chloride 99 mmol/L (98-107); Estimated Glomerular Filt Rate > 60; Glucose 175 mg/dL (65-110); Osmolality Calculated 292 mOsm/kg (285-295); Potassium 4.3 mmol/L (3.4-5.0); Sodium 138 mmol/L (137-145); Total Protein 6.9 g/dL (6.3-8.2)
[2025-01-02 11:34] LABS: GGT > 690.0 U/L (12-43)
== END 2025-01-02 10:33 | disposition home or self-care (01) ==
LOC: CHSLAB 10:34
PROVIDERS: PCP Internal Medicine; Visit Provider Nurse Practitioner Family
DX: R74.8 Abnormal levels of other serum enzymes (principal); R10.30 Lower abdominal pain, unspecified; E86.0 Dehydration
CPT/HCPCS: 36415; 80053; 82248; 82977

== ENCOUNTER 2025-01-08 13:11 | Outpatient (CLI) | payer MEDICARE, SELFPAY ==
[2025-01-08 13:22] LABS: Hematocrit 39.0 % (35.0-42.0); Hemoglobin 12.2 g/dL (11.7-13.8); Mean Corpuscular HGB Conc 31.3 g/dL (32-36); Mean Corpuscular Hemoglobin 28.8 pg (27.0-31.0); Mean Corpuscular Volume 92.0 fL (78.0-102.0); Platelet Count Result 433 K/mm3 (150-420); Red Blood Count 4.24 M/mm3 (4.20-5.40); White Blood Count 9.8 K/mm3 (4.8-10.8)
[2025-01-08 14:05] LABS: Alanine Aminotransferase 139 U/L (6-35); Albumin Level 4.5 g/dL (3.5-5.1); Alkaline Phosphatase 746 U/L (38-126); Anion Gap 11 mmol/L (4-12); Aspartate Amino Transferase 103 U/L (14-36); Bilirubin,Total 1.1 mg/dL (0.2-1.3); Blood Urea Nitrogen 16 mg/dL (7-17); Calcium 10.2 mg/dL (8.4-10.2); Carbon Dioxide 29 mmol/L (22-30); Chloride 100 mmol/L (98-107); Estimated Glomerular Filt Rate > 60; Glucose 76 mg/dL (65-110); Osmolality Calculated 290 mOsm/kg (285-295); Potassium 4.4 mmol/L (3.4-5.0); Sodium 140 mmol/L (137-145); Total Protein 7.4 g/dL (6.3-8.2)
[2025-01-08 14:13] LABS: GGT 617.5 U/L (12-43)
--- OUTSIDE RECORDS SUMMARY | 2025-01-08 15:59 | XMS_ITS | Clinical Summary ---
Author Organization [facility] Address [facility] [place] [address] Care Team Providers Care Emergency Response Officer Name Role Phone Unavailable Primary Care Provider [...]
--- OUTSIDE RECORDS SUMMARY | 2025-01-08 15:59 | XMS_ITS | Clinical Summary ---
Author Organization [facility] Address [address] [facility] [place] [address] Care Team Providers Care Gas Plumber Name Role Phone Unavailable Primary Care Provider Unavailabl e Source Comments [facility],non-owned Affiliates and Associated Physician Practices is amultiple site organization consisting of ambulatory clinics and hospital sitesin [place], [place], [place] and [place]. This disclosure is being madepursuant to the Care Everywhere program and may not contain all information available regarding this patient. 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
--- OUTSIDE RECORDS SUMMARY | 2025-01-08 15:59 | XMS_ITS | Encounter Summary ---
Author Organization [facility] Address [address] [place] [address] Care Team Providers Care Pin Puller Name Role Phone Toni Tracey MD Primary Care Provider [phone] Sebastian Lowery OT Unavailable Unavailable Burak Mari PAIN COORDINATOR Unavailable [phone] Encounter Details Date Type Department Care Team (Late st Contact Info) Description 12/16/2019 Telephone [facility] [address] [place] [address] Transcribed Order, Provider Social History Tobacco Use Types Packs/Day Years Used Date Smoking Tobacco: Never Smokeless Tobacco: Never Comments No Sex and Gender Information Value Date Recorded Sex Assigned at Not on file 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
--- OUTSIDE RECORDS SUMMARY | 2025-01-08 15:59 | XMS_ITS | Clinical Summary ---
Author Organization [facility] Address [address] [place] [address] Care Team Providers Care Fiber Optic Technician Name Role Phone Toni Tracey MD Primary Care Provider [phone] Sebastian Lowery OT Unavailable Unavailable Burak Mari PACKING LINE WORKER Unavailable [phone] Allergies No known active allergies Medications ALPRAZolam (XANAX) 0.25 mg tablet prn 0 0 4 Active multivitamin capsule 0 0 4 Active CYANOCOBALAMIN /FOLIC ACID (VITAMIN S43-UBPBM ACID) 1,000-400 mcg tablet, sublingual 0 0 [...] Encounters Date Type Department Care Team Description 01/07/2025 Orders Only [facility] Health Information Management 1 [place] [address] Scanning, Provider 12/16/2024 Orders Only [facility] Orthopedics [facility] Sports Medicine [address] [place] [phone] Burak Mari, TANIYA Status post reverse total shoulder replacement, right (Primary Dx) 12/09/2024 1:00 PM CDT Telemedicine [facility] [address] [place] [address] [address] [place] [phone] Burak Mari NP Status post reverse total shoulder replacement, right (Primary Dx) 12/09/2024 Orders Only [facility] [address] [place] [address] [address] [place] [phone] Burak Mari NP Status post reverse total shoulder replacement, right (Primary Dx) 12/09/2024 Telephone [facility] [address] [place] [address] [address] [place] [phone] Burak Mari NP 11/27/2024 [facility] Post Discharge Follow up phone call [facility] [address] [place] [address] Rebekah Jarvis 11/25/2024 1:49 PM CDT Anesthesia Event [facility] Operating Room 1 [place] [address] Raul Camarena MD Alexander, Jeffrey Michael, DO 11/25/2024 1:30 PM CDT - 11/25/2024 4:00 PM CDT Surgery [facility] Operating Room 1 [place] [address] Golden Rosenbaum MD Right reverse total shoulder arthroplasty 11/25/2024 11:18 AM CDT - 11/26/2024 1:38 PM CDT Hospital Encounter [facility] [address] [place] [address] Golden Rosenbaum MD Rotator cuff tear arthropathy of right shoulder Discharge Disposition: Discharge to home or self care 11/20/2024 4:03 PM CDT - 11/20/2024 11:59 PM CDT Hospital Encounter [facility] 1 [place] [address] Rotator cuff arthropathy of right shoulder Discharge Disposition: Discharge to home or self care 11/19/2024 Telephone [facility] [address] [place] [address] [address] [place] [address] Golden Rosenbaum MD 11/19/2024 Telephone [facility] 1 [place] [address] Mariia Shook 11/19/2024 Telephone [facility] 1 [place] [address] Mariia Shook 11/17/2024 Telephone [facility] [address] [place] [address] Golden Rosenbaum MD 11/12/2024 Telephone [facility] 1 [place] [address] Obdulio Heike Tony 10/27/2024 10:55 AM CDT Lab [address] [address] Rotator cuff arthropathy of right shoulder; Encounter for screening for diabetes mellitus 10/27/2024 10:53 AM CDT - 10/27/2024 11:59 PM CDT Hospital Encounter [facility] 1 [place] [address] Rotator cuff arthropathy of right shoulder Discharge Disposition: Discharge to home or self care 10/27/2024 10:52 AM CDT - 10/27/2024 11:59 PM CDT Hospital Encounter [facility] Cardiology [address] [place] [address] Rotator cuff arthropathy of right shoulder Discharge [...] on file Legal 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 Gender Identity Not on file Sexual [...] 01/28/2015, 01/14 Medical Devices Implanted Type Area Visual Supervisor Device Identifier Shelf Expiration Date Model / Serial / Lot Exactech Component 36mm Glenoid Glenosphere Reverse Shoulder 320-31-36 - [id number] - [id number] Implanted:Qty: 1 on 11/25/2024 by Golden Rosenbaum MD at [facility] Right: Shoulder [employer] [id number] 07/08/2034 320-31-36 / [id number] / Exactech Equinoxe Lock Reverse Shoulder Glenosphere Screw Bone 320-15-05 - [id number] - [id number] Implanted:Qty: 1 on 11/25/2024 by Golden Rosenbaum MD at [facility] Right: Shoulder [employer]ech [id number] 06/17/2029 320-15-05 / [id number] / Ex[employer]ech Equinoxe Small Reverse Superior Augment Shoulder 10d Plate 320-35-02 - [id number] - [id number] Implanted:Qty: 1 on 11/25/2024 by Golden Rosenbaum MD at [facility] Right: Shoulder [employer] [id number] 06/17/2034 320-35-02 / [id number] / Exactech Equinoxe 4.5mm 34mm Kit Compression Lock Cap Reverse Shoulder 320-20-34 - [id number] - [id number] Implanted:Qty: 1 on 11/25/2024 by Golden Rosenbaum MD at [facility] Right: Shoulder [employer] [id number] 12/04/2028 320-20-34 / [id number] / Ex[employer]ech Equinoxe 4.5mm 34mm Kit Compression Lock Cap Reverse Shoulder 320-20-34 - [id number] - [id number] Implanted:Qty: 1 on 11/25/2024 by Golden Rosenbaum MD at [facility] Right: Shoulder [employer]ech [id number] 12/23/2028 320-20-34 / [id number] / [employer] Univers Revers Arthrex 5mm Stem Humeral Sterile Ar-9501-05p - [id number] Implanted:Qty: 1 on 11/25/2024 by Golden Rosenbaum MD at [facility] Right: Shoulder [employer] [id number] 08/13/2029 AR-9501-0 5P / / [id number] [employer] Implant Suture Cup Humeral Reverse Right Univers Revers +2x33mm Titanium [id number] - [id number] Implanted:Qty: 1 on 11/25/2024 by Golden Rosenbaum MD at [facility] Right: Shoulder [employer] [id number] 07/14/2029 AR-9502F- [id number] .[id number] [employer] Insert Humeral Combo Reverse Poly Univers Revers +3x33mm [id number] - [id number] Implanted:Qty: 1 on 11/25/2024 by Golden Rosenbaum MD at [facility] Right: Shoulder [employer] [id number] 12/14/2028 AR-9503-3 336-3 .[id number] Procedures Procedure Name Priority Date/Time Associated Diagnosis Comments SCAN - OTHER ORDERS 01/07/2025 XR SHOULDER RIGHT 2 OR MORE VIEWS IP Routine 11/25/2024 4:08 PM CDT GRAM STAIN - CERNER NABEEL STAT 11/25/2024 3:14 PM CDT AEROBIC AND ANAEROBIC CULTURE AND GRAM STAIN STAT 11/25/2024 3:14 PM CDT NC AN ELECTIVE ENDOTRACHEAL AIRWAY Routine 11/25/2024 2:16 [...] shoulder from Last 3 Months Results * SCAN - OTHER ORDERS (01/07/2025) us Provider Scanning Final Result * XR Shoulder Right 2+ View (11/25/2024 [...] Mp Camacho M.D. RB: RB Report ID: [id number] Reading Location: [id number] Procedure Note Mp Camacho MD - 11/26/2024 [...] Mp Camacho M.D. RB: RB Report ID: [id number] Reading Location: [id number] Rima FLORES IMG XR PROCEDURES Feli l Result * Gram stain Miscellaneous Shoulder, right (11/25/2024 3:14 PM CDT) Direct Specimen Exam Stain: Rare polymorphonuclear leukocytes seen. No organisms seen. Miscellaneous (Shoulder, right) 11/25/2024 3:14 PM CDT 11/25/2024 3:24 PM CDT Golden Rosenbaum MD LAB MICROBIOLOGY - GENERAL O RDERABLES Final Result [facility] [place] [address] [place] [address] * Aerobic and anaerobic culture and gram stain Wound Shoulder, right (11/25/2024 3:14 PM CDT) Direct Specimen Exam Stain: Few polymorphonuclear leukocytes seen. No organisms seen. Comment:Testing performed by : [facility], [address] [place]., [address] Report Final Report: No growth [facility] ([place]) Comment:Testing performed by : [facility], 1 [place]., [address] Wound (Shoulder, right) 11/25/2024 3:14 PM CDT 11/25/2024 6:12 PM CDT Narrative [facility] ([place]) - 12/05/2024 10:06 AM CDT Right shoulder stat culture Specimen received on an ESwab. Testing performed by [facility] Microbiology Laboratory ([phone]) Specimens submitted from normally sterile body sites [...] MICROBIOLOGY - GENERAL O RDERABLES Final Result [facility] ([place]) [address] Department [place] [address] * NC AN ELECTIVE ENDOTRACHEAL AIRWAY (11/25/2024 2:16 PM CDT) Narrative Sintia Sandoval CRNA - 11/25/2024 2:16 PM CDT Sintia Sandoval CRNA 11/25/2024 2:17 PM Airway Patient location: OR Urgency: elective Date/time: 11/25/2024 1:56 PM Indications for airway management: anesthesia Difficult airway: no Staff: Placed by: ENT PHYSICIAN: Sintia Sandoval CRNA Emergent airway documentation: Risks [...] BLOOD ORDERABLES Final R esult [facility]) [address] [place] [address] * aPTT (11/25/2024 11:52 AM CDT) aPTT 33 26 - 38 sec [facility] ([place]) Comment: Interpretive Data Heparin therapeutic range: 66.0 - 100.0 seconds. Range based on correlation with therapeutic heparin activity range of 0.3 - 0.7 Units/mL. Current interpretive data was last revised on 2023. Blood 11/25/2024 11:5 2 AM CDT 11/25/2024 11:55 AM CDT Golden Rosenbaum MD LAB BLOOD ORDERABLES Final R esult Performing Organization Address [facility] Co de Phone Number [facility]) 1 [place] [address] * Protime-INR (11/25/2024 11:52 AM CDT) PT 11.8 10.2 - 13.5 sec [facility] ([place]) INR 1.05 0.90 - 1.20 [facility] ([place] Comment: Interpretive data Oral anticoagulant therapeutic ranges: Venous thromboembolism prophylaxis or treatment: 2.0-3.0 CARDIOLOGY Standard range: 2.0-3.0 High-intensity range: 2.5-3.5 Refer to indication-specific guidelines for appropriate target ranges for prosthetic heart valve replacement. Current interpretive data was last revised on 2019. Blood 11/25/2024 11:5 2 AM CDT 11/25/2024 11:55 AM CDT Golden Rosenbaum MD LAB BLOOD ORDERABLES Final R esult Performing Organization Address [facility] Co de Phone Number [facility] ([place]) [address] [place] [address] [place] [address] * Surgical pathology (11/25/2024 9:27 AM CDT) Tissue (Bone Fragment(s),) 11/25/2024 2:45 PM CDT Comment:Placed in formalin a t time of drop off Narrative PATHOLOGY [facility] ([place]) - 12/01/2024 11:47 AM CDT EPIC results best viewed via link to PDF [facility] Department of Pathology [address] [place] [id number] Note to Patients: This report may contain [...] Final Report Patient Name: RHINA FERREIRA Address: [address] [place] [address]- Gender: F : 1940 (Age: 84) Service: Surgery Location: [facility] Hospital #: [id number] Patient Type: [facility] OP in bed Taken: 11/25/2024 Received: 11/26/2024 [...] determined by the Surgical Pathology Department at [facility] as part of an ongoing air quality chemist program and in compliance with federally mandated [...] characteristics determined by the Surgical Pathology Department [facility]. It has not been cleared or approved by the U. S. Food and Drug Administration. Note for decalcified specimens: This assay has not been validated on decalcified tissues. Results should be interpreted with caution given the possibility of false negativity on decalcified specimens Golden Rosenbaum MD LAB PATHOLOGY ORDERABLES [facility] al Result Performing Organization Address City/State/[facility] Co de Phone Number PATHOLOGY [facility] ([address] [phone] * CT Shoulder Right WO Contrast (11/20/2024 [...] is mild osteoarthritis of the glenohumeral joint. [place] is seen of the greater tuberosity from [...] Ken Blas M.D. MJ: BESS Report ID: [id number] Reading Location: [id number] Procedure Note Ken Blas MD - 11/21/2024 [...] There is mild osteoarthritis of the glenohumeral joint.[place] is seen of the greater tuberosity from [...] Ken Blas M.D. MJ: BESS Report ID: [id number] Reading Location: [id number] Golden Rosenbaum MD IMG CT PROCEDURES [...] Stephan Glover M.D. KH: MARLENE Report ID: [id number] Reading Location: [id number] Procedure Note Stephan Glover MD - 11/07/2024 [...] Stephan Glover M.D. KH: MARLENE Report ID: [id number] Reading Location: [place] [address] Golden Rosenbaum MD IMG XR PROCEDURES Final Resu lt * Urinalysis reflex to microscopic and culture Urine, clean voided (10/27/2024 11:39 AM CDT) Color, ur Yellow Yellow Clarity, ur Clear Clear SOLOMON [facility] ([place]) Specific gravity, ur 1.008 1.003 - 1.030 [facility] ([place]) pH, urine 6.0 [facility] ([place]) Comment: Interpretive Data U rine pH is affected by diet, medications, systemic acid-base disturbances, and renal tubular function. pH may affect urinary stone formation. For example, urine pH below 6.0 may help reduce the tendency for calcium phosphate stones and pH greater than 6.0 may reduce the tendency for uric acid stone formation. Source: [employer] Current Interpretive Data was last revised on [...] O RDERABLES Final Result Performing Organization Address City/[facility] Co de Phone Number [facility] ([place]) [address] Department [place] [address] * ECG 12 lead (10/27/2024 11:38 AM CDT) 10/27/2024 11:3 5 AM CDT Narrative [facility] - 10/27/2024 12:52 PM CDT Vent Rate: 76 bpm RR Interval: 785 msec NC Interval: 162 msec QRS Duration: 87 msec QT Interval: 360 msec QTC Interval: 390 msec P-R-T [place]: 13 - -38 - 63 degrees IMPRESSION: SINUS RHYTHM WITH SINUS ARRHYTHMIA LEFT AXIS DEVIATION [QRS AXIS < -30] ABNORMAL ECG Electronically Signed By: Manuel Maxwell MD Golden Rosenbaum MD ECG ORDERABLES Final Result Performing Organization Address [facility] Co de Phone Number [facility] * eGFR (10/27/2024 11:00 AM [...] MD LAB BLOOD ORDERABLES Final R esult [facility] ([place]) [address] Department [place] [address] * (ABNORMAL) Differential, auto (10/27/2024 11:00 AM [...] MD LAB BLOOD ORDERABLES Final R esult [facility] ([place]) [address] Department [place] [address] * CBC with auto differential (10/27/2024 11:00 AM CDT) WBC 9.69 3.80 - 9.90 K/cumm Hgb 12.9 11.9 - 15.5 g/dL [facility] ([place]) Hct 39.7 35.6 - 45.5 % [facility] ([place]) Plt 286 150 - 400 K/cumm [facility] ([place]) MPV 9.4 9.1 - 12.3 fL [facility] ([place]) RBC 4.43 3.90 - 5.20 M/cumm [facility] ([place]) MCV 89.6 81.3 - 96.4 fL [facility] ([place]) MCH 29.1 27.1 - 33.3 pg [facility] ([place]) MCHC 32.5 32.3 - 35.7 g/dL [facility] ([place]) RDW CV 13.5 11.1 - 14.9 % [facility] ([place]) RDW SD 44.5 35.7 - 48.1 fL [facility] ([place]) NRBC abs 0.00 0.00 - 0.01 K/cumm [facility] ([place]) Blood 10/27/2024 11:0 0 AM CDT 10/27/2024 11:34 AM CDT Golden Rosenbaum MD LAB BLOOD ORDERABLES Final R esult Performing Organization Address City/[facility] Co de Phone Number [facility] ([place]) [address] [place] [address] * Hemoglobin A1c (10/27/2024 11:00 AM CDT) Hgb A1C 5.6 4.0 - 5.6 % Estimated Average Glucose 114 mg/dL [facility] ([place]) Comment: The ADA recommends reporting an estimated Average Glucose (eAG) with all Hemoglobin A1c results using the equation derived from a study of 507 normal and diabetic adults. Minority populations were underrepresented and children were not included. (Diabetes Care 31:9830-5681, 2008). The eAG is not equivalent to a fasting glucose. Blood 10/27/2024 11:0 0 AM CDT 10/27/2024 11:34 AM CDT Golden Rosenbaum MD LAB BLOOD ORDERABLES Final R esult Performing Organization Address City/[facility]/ZIP Co de Phone Number [facility] ([place]) [address] [place] [address] * (ABNORMAL) Comprehensive metabolic panel (10/27/2024 11:00 [...] MD LAB BLOOD ORDERABLES Final R esult [facility] [place]) [address] Department [place] [address] from Last 3 Months Insurance MEDICARE [facility] MEDICARE [facility] MEDICARE [facility] Advance Directives For more information, please contact: [phone] * Full Code (Latest Code Status on File) Date Activated Date Inactivated Comments 11/25/2024 5:24 PM 11/26/2024 5:38 PM Care Teams Fiber Optic Technician Relationship Specialty Start Date End Date Toni Tracey MD [address] [place] [address] PCP - General 02/29/16 Sebastian Lowery OT Occupational Therapist Occupational Therapy 11/12/24 Burak Mari NP [address] [place] [address] [address] [place] [address] Nurse Practitioner Orthopedic Surgery 11/25/24
--- OUTSIDE RECORDS SUMMARY | 2025-01-08 15:59 | XMS_ITS | Encounter Summary ---
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 Gender Identity Not on file Sexual Orientation Not on file documented as of this encounter Plan of Treatment Not on file documented as of this encounter Procedures Procedure Name Priority Date/Time Associated Diagnosis Comments SCAN - OTHER ORDERS 01/07/2025 documented in this encounter Results * SCAN - OTHER ORDERS (01/07/2025) us Provider Scanning Final Result documented in this encounter Visit Diagnoses Not on filedocumented in this encounter Care Teams Emergency Medicine Specialist Relationship Specialty Start Date End Date Toni Tracey MD [address] [place] [address] PCP - General 02/29/16 Sebastian Lowery OT Occupational Therapist Occupational Therapy 11/12/24 Burak Mari NP [address] [place] [address] [address] [place] [address] Nurse Practitioner Orthopedic Surgery 11/25/24 documented as of this encounter
== END 2025-01-08 13:12 | disposition home or self-care (01) ==
LOC: CHSLAB 13:12
PROVIDERS: PCP Internal Medicine; Visit Provider Nurse Practitioner Family
DX: R94.5 Abnormal results of liver function studies (principal)
CPT/HCPCS: 36415; 80053; 82248; 82977; 85027

== ENCOUNTER 2025-01-29 16:01 | Outpatient (CLI) | payer MEDICARE, OTHER, SELFPAY ==
--- OUTSIDE RECORDS SUMMARY | 2025-01-29 09:40 | XMS_ITS | Encounter Summary ---
Author Organization [facility] Address [address] [place] [address] Phone Care Team Providers Care Video Editor Name Role Phone Toni Tracey MD Primary Care Provider [phone] Sebastian Lowery OT Unavailable Unavailable Burak Mari CLARIFIER OPERATOR HELPER Unavailable [phone] Reason for Visit * Reason Comments Establish Care * Consultation (Urgent) - Authorized Specialty Diagnoses / Procedures Referred By Contac t Referred To Contact Gastroenterology Diagnoses Elevated liver enzymes Toni Tracey MD [address] [place] [address] Phone: tel: fax: Elen Dang MD [address] [place] [address] Phone: tel: fax: Referral ID Status Reason Start Date Expiration Date Visits Requested Visits Authorized [id number] Authorized Specialty Services Required 01/05/2025 02/04/2026 12 12 Encounter Details Date Type Department Care Team (Late st Contact Info) Description 01/29/2025 9:40 AM CDT Office Visit [facility] Medicine Gastroenterology [address] [facility] [address] [place] [address] Melanie Phillips MD [address] [place] [address] Hepatic steatosis (Primary Dx); Hepatitis cholestatic; 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, unspecified Social History Tobacco Use Types Packs/Day Years Used Date Smoking Tobacco: Never Smokeless Tobacco: Never Alcohol Use Standard Drinks/Week Comments Never 0 (1 standard drink = 0.6 oz pur e alcohol) PHQ-2 Answer Date Recorded PHQ-2 Total Score (If total score is 3 or more points, staff should administer the PHQ-9) 0 11/25/2024 AUDIT-C Answer Date Recorded Q1: How often do you have a drink containing alcohol? Never 01/29/2025 Q2: How many drinks containi ng alcohol do you have on a typical day when you are drinking? Patient does not drink Q3: How often do you have si x or more drinks on one occasion? Never 01/29/2025 Personal Safety Answer Date Recorded Have you ever been in or are you currently in a harmful physical or emotional relationship or is someone making you feel afraid or unsafe? 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 Gender Identity Not on file Sexual Orientation Not on file documented as of this encounter Last Filed Vital Signs Vital Sign Reading Time Taken Comments Blood Pressure 159/85 01/29/2025 9:53 AM CDT Pulse 74 01/29/2025 9:53 AM CDT Temperature - - Respiratory Rate - - Oxygen Saturation 99% 01/29/2025 9:53 AM CDT Inhaled Oxygen Concentration - - Weight 70.4 kg (155 lb 3.2 oz) 01/29/2025 9:53 A M CDT Height 157.5 cm (5' 2.01) 01/29/2025 9:53 AM CD T Body Mass Index 28.38 01/29/2025 9:53 AM CDT documented in this encounter Functional Status * AUDIT-C Score Answer Date of Assessment Author 0 01/29/2025 9:49 AM CDT Timothy Greco CMA * Question Answer Date of Assessment Author Q1: How often do you have a drink containing alcohol? Never 01/29/2025 9:49 AM CDT Timothy Greco CMA Q2: How many drinks containing alcohol do you have on a typical day when you are drinking? Patient does not drink 01/29/2025 9:49 AM CDTimothy Toth CMA Q3: How often do you have six or more drinks on one occasion? Never 01/29/2025 9:49 AM CDT Timothy Greco CMA documented as of this encounter Ordered Prescriptions Prescription Sig Dispense Quantity Refills Last Filled Start Date End Date ursodioL (ACTIGALL) 300 mg capsuleIndications :Cholelithiasis Prevention Take 3 capsules (900 mg total) by mouth daily 270 capsule 1 01/29/2025 documented in this encounter Progress Notes * Melanie Phillips MD - 01/29/2025 9:40 AM CDT Images from the original note were not included. [facility] DEPARTMENT OF INTERNAL MEDICINE DIVISION OF GASTROENTEROLOGY HEPATOLOGY CLINIC Mailing Address: [address] [place] [address] Patient Name: Julia Comer : 1940 Today's Date: 01/29/2025 PCP: Toni Tracey MD Referring Provider: Toni Tracey MD Chief Complaint Cholestatic liver injury HPI Julia Comer is a 84 y.o. 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 She has a history of mild (<2 x ULN) elevations of her ALP, AST and ALT intermittently since at least 2016. In October she had higher elevation of ALP to ~230. She was then seen by her PCP for epigastric abdominal pain,bloating, aches and was found to have severe elevations in her ALP > 1000 andAST/ALT in the 200- 300 range. Her AST/ALT improved on the most recent labs 12/31 but ALP remained high. 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 The MRI was done approx 3 weeks following her abdominal pain/bloating episode. She does report similar symptoms intermittently a few times a year but has never been as severe as before. She denies any fevers, chills, night sweats, or jaundice. She does report 10# weight loss due to abdominal symptoms and being placed on a low fat diet. She reports resolution of her abdominal symptoms and currently has a normal appetite. She reports she was recently started on atorvastatin for carotid disease but this was stopped 2 weeks ago due to her liver injury. She reports rare use of tylenol. She takes vit c, vit D, calcium, multivitamin, vit B12, folate, and magnesium but otherwise denies any over the counter medications, herbals, or supplements. She denies significant alcohol use. She denies recent antibiotics. Review of Systems Per HPI, otherwise ROS was negative Past Medical History: Diagnosis Date Anxiety Edema Hypertension Pancreatic neoplasm Social History Tobacco Use Smoking status: Never Smokeless tobacco: Never Substance and Sexual Activity Drug use: Never Sexual activity: Defer Alcohol Use: Not At Risk (01/29/2025) AUDIT-C Frequency of Alcohol Consumption: Never Average Number of Drinks: Patient does not drink Frequency of Binge Drinking: Never No family history on file. Current Outpatient Medications Medication Sig Dispense Refill ALPRAZolam (XANAX) 0.25 mg tablet prn 0 0 ascorbic acid, vitamin C, (VITAMIN C) 500 mg capsule, extended release CR capsule 500 mg. 1 0 aspirin 81 mg enteric coated tablet Take 1 tablet (81 mg total) by mouth 2 (two) times a day for 14days, THEN 1 tablet (81 mg total) daily. busPIRone (BUSPAR) 10 mg tablet Take 1 tablet (10 mg total) by mouth as needed calcium acetate (PHOSLO) 667 mg capsule Take 1,200 mg by mouth daily. cholecalciferol 25 mcg (1,000 unit) tablet Take 1 tablet (1,000 Units total) by mouth daily CYANOCOBALAMIN/FOLIC ACID (VITAMIN D77-ZCVLC ACID) 1,000-400 mcg tablet, sublingual 0 0 losartan (COZAAR) 100 mg tablet Take 1 tablet (100 mg total) by mouth daily meloxicam (MOBIC) 15 mg tablet Take 1 tablet (15 mg total) by mouth daily multivitamin capsule 0 0 ondansetron (ZOFRAN) 4 mg tablet Every 4-6 hours as needed 30 tablet 1 senna-docusate (PERICOLACE) 8.6-50 mg 1-2 times daily as needed for constipation 60 tablet 1 torsemide (DEMADEX) 5 mg tablet Take 1 tablet (5 mg total) by mouth daily No current facility-administered medications for this visit. Vitals Vitals: 01/29/25 0953 BP: 159/85 Pulse: 74 SpO2: 99% Weight: 70.4 kg (155 lb 3.2 oz) Height: 157.5 cm (5' 2.01) Body mass index is 28.38 kg/m??. Physical Exam Constitutional: NAD, well developed, well nourished. Eyes: PERRL, EOMI, anicteric. ENT: NCAT. Oropharynx normal, moist mucus membranes. Lungs: Clear to auscultation in all lung rollins, unlabored. On Room air Cardiovascular: RRR, no murmurs, no JVD. GI: Soft, non-tender, non-distended, bowel sounds positive, no organomegaly, no distended abdominalveins Skin: No new rashes, lesions or bruises. No jaundice Extremities: Normal without edema or cyanosis Neurologic: AOx4, no gross abnormalities, no asterixis Psychiatric: Normal affect and mood. Labs: Chronic Viral Hepatitis Labs No results found for: HEPCAB, HEPCGENO, HCVRNARES, HEPBSAG, HEPBSAB, HEPBCAB, HBEAG, HEPBEAB Immune-mediated Liver Disease Labs No results found for: RHIANNON, SMOOTHMUSCAB, MITOAB, IMMUNM, TTGIGA Metabolic Liver Disease LABS Lab Results Component Value Date HGBA1C 5.6 10/27/2024 Lab Results Component Value Date WBC 9.69 10/27/2024 HGB 12.9 10/27/2024 LABPLAT 286 10/27/2024 INR 1.05 11/25/2024 Lab Results Component Value Date AST 60 (H) 10/27/2024 ALT 61 (H) 10/27/2024 ALKPHOS 286 (H) 10/27/2024 PROT 6.6 10/27/2024 ALBUMIN 4.4 10/27/2024 BILITOT 0.8 10/27/2024 SODIUM 135 10/27/2024 POTASSIUM 4.4 10/27/2024 CHLORIDE 96 (L) 10/27/2024 CO2 25 10/27/2024 ANIONGAP 15 10/27/2024 BUNSER 15 10/27/2024 CREATININE 0.79 10/27/2024 GLUCOSE 71 10/27/2024 CALCIUM 9.4 10/27/2024 Labs 01/02/25 Na 138 K 4.3 Cr 0.79 Glu 175 Bili 1.7 AST 181 ALT 215 Alb 4.3 ALP > 1000 D bili < 0.1 GGT > 690 WBC 8.8 Hgb 12.3 Plt 334 Imaging MRI/MRCP IMPRESSION: 1. 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 2. Mild stenosis at the biliary anastomosis in the region of the hepaticojejunostomy. RUQ US 12/31/24 Calcifications in the liver c/w old granulomatous disease CT W 12/26/2024 Liver with hepatic steatosis Pathology Whipple C. DISTAL STOMACH, DUODENUM, PROXIMAL JEJUNUM, HEAD OF PANCREAS, DISTAL COMMON BILE DUCT, WHIPPLE PROCEDURE WITH FROZEN SECTION EVALUATION OF PANCREATIC AND BILE DUCT MARGINS: - Intraductal oncocyticpapillary neoplasm (severe dysplasia) - 7.5 centimeters maximal diameter - Location in head/ampullary region with duct obstruction - Common duct with active inflammation and reactive changes (stent changes) - Negative for invasion of peripancreatic soft tissue - Negative for lymphovascular and perineural invasion - 11 peripancreatic lymph nodes negative for metastasis - Gastric and jejunal margins are unremarkable - Negative common bile duct and pancreatitis margins (confirms frozen section diagnoses) - All resection margins are negative Assessment / Plan Julia Comer is a 84 y.o. female who presents as an initial office visit for severe cholestatic liver injury. Cholestatic liver injury She has a prior whipple and has had intermittent mild liver enzyme elevations in mixed or cholestatic pattern. She also reports intermittent epigastric discomfort, aches, and bloating. She reports a severe episode in December which prompted her to see her PCP. At that time her ALP was severely elevated but she had no jaundice. 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 No masses were seen. I do not suspect his was statin induced.There are no other drugs that I am concerned about based on her recall. I wonder if she had a stonelodge in her biliary system causing the injury given her symptoms at that time. Other differential i ncludes cholangitis, malignancy, IGG4 disease, or autoimmune disease of the biliary system. - IgG4, CA 19-9, AMA, and repeat labs today - start jamel 900 mg daily - I will review her MRI at imaging conference - if enzymes do not resolve, may need to consider biopsy Hepatic steatosis Seen on CT scan. No concerns for fibrosis or cirrhosis based on this scan. Can consider fibroscan at the next office visit based on above workup Return in about 6 months (around 07/30/2025). Melanie Phillips MD Division of Gastroenterology Transplant Hepatology documented in this encounter Plan of Treatment Scheduled Orders Name Type Priority Associated Diagnoses Orde r Schedule Cancer antigen 19-9 Lab Routine 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, unspecified Expected: 01/29/2025 (Approximate), Expires: 04/29/2025 Mitochondrial antibodies, qualitative Lab Routine Hepatitis cholestatic Expected: 01/29/2025 (Approximate), Expires: 04/29/2025 Comprehensive metabolic panel Lab Routine Hepatitis cholestatic Expected: 01/29/2025 (Approximate), Expires: 04/29/2025 Immunoglobulin IgG subclasses Lab Routine Hepatic steatosis Expected: 01/29/2025 (Approximate), Expires: 04/29/2025 documented as of this encounter Visit Diagnoses Diagnosis Hepatic steatosis- Primary Other chronic nonalcoholic liver disease Hepatitis cholestatic Other specified disorders of liver 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, unspecified documented in this encounter Historical Medications * This list may reflect changes made after this encounter. famotidine (PEPCID) 40 mg tablet as needed 12/26/2024 added in this encounter Orders Lab Orders Without Results Count Last Ordered D ate First Ordered Date MITOCHONDRIAL ANTIBODIES, QUALITATIVE 1 documented in this encounter Care Teams Video Editor Relationship Specialty Start Date End Date Toni Tracey MD [address] [place] [address] PCP - General 02/29/16 Sebastian Lowery OT Occupational Therapist Occupational Therapy 11/12/24 Burak Mari NP [address] [facility] [place] [address] Nurse Practitioner Orthopedic Surgery 11/25/24 documented as of this encounter
[2025-01-29 16:40] LABS: Alanine Aminotransferase 167 U/L (6-35); Albumin Level 4.2 g/dL (3.5-5.1); Alkaline Phosphatase 406 U/L (38-126); Anion Gap 8 mmol/L (4-12); Aspartate Amino Transferase 108 U/L (14-36); Bilirubin,Total 0.7 mg/dL (0.2-1.3); Blood Urea Nitrogen 19 mg/dL (7-17); Calcium 9.6 mg/dL (8.4-10.2); Carbon Dioxide 29 mmol/L (22-30); Chloride 101 mmol/L (98-107); Estimated Glomerular Filt Rate 54; Glucose 141 mg/dL (65-110); Osmolality Calculated 290 mOsm/kg (285-295); Potassium 4.0 mmol/L (3.4-5.0); Sodium 138 mmol/L (137-145); Total Protein 6.7 g/dL (6.3-8.2)
--- OUTSIDE RECORDS SUMMARY | 2025-01-29 17:51 | XMS_ITS | Clinical Summary ---
Author Organization [facility] Address [facility] [place] [address] Care Team Providers Care Fire Engine Pump Operator Name Role Phone Unavailable Primary Care Provider [...] - 1-dose 75+ series) 2017 COVID-19 Vaccine ( - 2023-2 5 season) 2024 Influenza Adult (#1) 2025 Meningococcal B Vaccine Aged Out No l onger eligible based on patient's age to complete this topic Meningococcal Vaccine Aged Out No komal chavo eligible based on patient's age to complete this topic RSV Immunizations Under 20 Months Aged Out No longer eligible based on patient's age to complete this topic
--- OUTSIDE RECORDS SUMMARY | 2025-01-29 17:51 | XMS_ITS | Encounter Summary ---
Author Organization [facility] Address [address] [place] [address] Care Team Providers Care Key Worker Name Role Phone Toni Tracey MD Primary Care Provider [phone] Sebastian Lowery OT Unavailable Unavailable Burak Mari FLATTENING MACHINE OPERATOR Unavailable [phone] Encounter Details Date Type Department Care Team (Late st Contact Info) Description 12/16/2019 Telephone [facility] - Imaging [address] [place] [address] Transcribed Order, Provider Social History Tobacco Use Types Packs/Day Years Used Date Smoking Tobacco: Never Smokeless Tobacco: Never Comments No Sex and Gender Information Value Date Recorded Sex Assigned at Not on file 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
--- OUTSIDE RECORDS SUMMARY | 2025-01-29 17:51 | XMS_ITS | Encounter Summary ---
Author Organization [facility] Address [address] [place] [address] Phone Care Team Providers Care Street Light Mechanic Name Role Phone Toni Tracey MD Primary Care Provider Sebastian Lowery OT Unavailable Unavailable Burak Mari UC ARCHITECT Unavailable Encounter Details Date Type Department Care Team (Late st Contact Info) Description 01/29/[address] 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 Never 01/29/2025 9:49 AM CDT Timothy Greco CMA documented as of this encounter Miscellaneous Notes * Telephone Encounter - Bela Hendrix LPN - 01/29/2025 3:21 PM CDT Called Pt. To discuss with no answer at time of call, left VM with call back number ----- Message from Melanie Phillips MD sent at 01/29/2025 2:04 PM CDT ----- I sent julia to the lab today after clinic. It looks like she arrived (signed a HIPAA consent) but then the encounter was cancelled and labs are not pending. Do you mind following up with her aboutif labs were drawn. If not, where she would like them drawn? I had ordered a CMP, IGG subclasses, AMA, CA 19-9 documented in this encounter Plan of Treatment Not on file documented as of this encounter Visit Diagnoses Not on filedocumented in this encounter Care Teams Street Light Mechanic Relationship Specialty Start Date End Date Toni Tracey MD [address] [id number] PCP - General 02/29/16 Sebastian Lowery OT Occupational Therapist Occupational Therapy 11/12/24 Burak Mari NP [address] [place] [address] [address] [place] [address] Nurse Practitioner Orthopedic Surgery 11/25/24 documented as of this encounter
--- OUTSIDE RECORDS SUMMARY | 2025-01-29 17:51 | XMS_ITS | Clinical Summary ---
Author Organization [facility] Address [address] [facility] [place] [address] Care Team Providers Care Central Station Operator Name Role Phone Unavailable Primary Care Provider Unavailabl e Source Comments [facility],non-owned Affiliates and Associated Physician Practices is amultiple site organization consisting of ambulatory clinics and hospital sitesin [place], [place], [place] and [place]. This disclosure is being madepursuant to the Care Everywhere program and may not contain all information available regarding this patient. 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
--- OUTSIDE RECORDS SUMMARY | 2025-01-29 17:51 | XMS_ITS | Clinical Summary ---
Author Organization [facility] Address [address] [place] [address] Care Team Providers Care Portfolio Architect Name Role Phone Toni Tracey MD Primary Care Provider Sebastian Lowery OT Unavailable Unavailable Burak Mari PERSONNEL MONITOR Unavailable [phone] Allergies Active Allergy Reactions Criticality Noted Date Comments Codeine Stomach upset Low 01/29/2025 Constipation Medications ALPRAZolam (XANAX) 0.25 mg tablet prn 0 0 10/15/19 14 Active multivitamin capsule 0 0 10/16/19 14 Active CYANOCOBALAMIN /FOLIC ACID (VITAMIN L58-JDRDB ACID) 1,000-400 mcg tablet, sublingual 0 0 10/16/19 14 Active ascorbic acid, vitamin C, (VITAMIN C) 500 mg capsule, extended release CR capsule 500 mg. 1 0 10/16/19 14 Active calcium acetate (PHOSLO) 667 mg capsule Take 1,200 mg by mouth daily. Active busPIRone (BUSPAR) 10 mg tablet Take 1 tablet (10 mg total) by mouth as needed 04/08/20 24 Active losartan (COZAAR) 100 mg tablet Take 1 tablet (100 mg total) by mouth daily 10/16/19 25 Active meloxicam (MOBIC) 15 mg tablet Take 1 tablet (15 mg total) by mouth daily 11/04/19 25 Active torsemide (DEMADEX) 5 mg tablet Take 1 tablet (5 mg total) by mouth daily 11/11/19 25 Active cholecalcifero l 25 mcg (1,000 unit) tablet Take 1 tablet (1,000 Units total) by mouth daily Active aspirin 81 mg enteric coated tablet Take 1 tablet (81 mg total) by mouth 2 (two) times a day for 14 days, THEN 1 tablet (81 mg total) daily. 11/26/19 25 026 Active senna-docusate (PERICOLACE) 8.6-50 mg 1-2 times daily as needed for constipation 60 tablet 1 11/27/19 25 Active ondansetron (ZOFRAN) 4 mg tablet Every 4-6 hours as needed 30 tablet 1 11/27/19 25 Active famotidine (PEPCID) 40 mg tablet as needed 12/27/19 25 Active ursodioL (ACTIGALL) 300 mg capsuleIndicat ions:Cholelith iasis Prevention Take 3 capsules (900 mg total) by mouth daily 270 capsule 1 01/30/20 25 Active HYDROcodone-ac etaminophen (NORCO) 5-325 mg per tabletIndicati ons:Pain Take 1-2 tablets by mouth every 4 (four) hours as needed for pain 63 tablet 11/27/19 25 025 Discontinued Active Problems Problem Noted Date Diagnosed Date Hepatic steatosis 01/29/2025 Rotator cuff arthropathy, right 11/25/2024 S/P reverse [...] Encounters Date Type Department Care Team Description 01/29/2025 9:40 AM CDT Office Visit [facility] Medicine Gastroenterology [address] [place] [address] Medical Office Building [address], [address] [place] [address] Melanie Phillips MD Hepatic steatosis (Primary Dx); Hepatitis cholestatic; 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, unspecified 01/29/2025 Telephone [facility] Medicine Gastroenterology [address] [facility] Advanced Medicine 12th [place] [address] [place] [address] Bela Hendrix LPN 01/22/2025 1:15 PM CDT Office Visit [facility] Medical [facility] Orthopedics and Sports Medicine [address] [place] [address] [address] [place] [address] Ambrose Stovall PA Status post reverse total shoulder replacement, right (Primary Dx) 01/22/2025 8:08 AM CDT - 01/22/2025 11:59 PM CDT Hospital Encounter [facility] Orthopedics and Sports Medicine [address] [place] [address] [address] [place] [address] Discharge Disposition: Discharge to home or self care 01/22/2025 Orders Only [facility] Orth[facility]ics [facility] Sports Medicine [address] [place] [address] [address] [place] [address] Ambrose Stovall PA Status post reverse total shoulder replacement, right (Primary Dx) 01/22/2025 Documentation [facility] Medicine Scheduling [address] [place] [address] Tamela Lyles DOC 01/21/2025 6:24 PM CDT - 01/21/2025 11:59 PM CDT Hospital Encounter [facility] [address] [place] [address] Abnormal levels of other serum enzymes; Epigastric pain; Other disorders of bilirubin metabolism Discharge Disposition: Discharge to home or self care 01/07/2025 Orders Only [facility] Health Information Management 1 [place] [address] Scanning, Provider 12/16/2024 Orders Only [facility] Medical [facility] Orthopedics and Sports Medicine [address] [place] [address] [address] [place] [address] Burak Mari NP Status post reverse total shoulder replacement, right (Primary Dx) 12/09/2024 1:00 PM CDT Telemedicine [facility] Medical [facility]ics [facility] Medicine [address] [place] [address] [address] [place] [address] Burak Mari NP Status post reverse total shoulder replacement, right (Primary Dx) 12/09/2024 Orders Only [facility] Medicine [address] [place] [address] [address] [place] [address] Burak Mari NP Status post reverse total shoulder replacement, right (Primary Dx) 12/09/2024 Telephone [facility] Medicine [address] [place] [address] [address] [place] [phone] Burak Mrai, TANIYA 11/27/2024 [facility] Post Discharge Follow up phone call [facility] 1 [place] [address] Rebekah Jarvis 11/25/2024 1:49 PM CDT Anesthesia Event [facility] 1 [place] [address] Raul Camarena MD Alexander, Jeffrey Michael, DO 11/25/2024 1:30 PM CDT - 11/25/2024 4:00 PM CDT Surgery [facility] 1 [place] [address] Golden Rosenbaum MD Right reverse total shoulder arthroplasty 11/25/2024 11:18 AM CDT - 11/26/2024 1:38 PM CDT Hospital Encounter [facility] 1 [place] [address] Golden Rosenbaum MD Rotator cuff tear arthropathy of right shoulder Discharge Disposition: Discharge to home or self care 11/20/2024 4:03 PM CDT - 11/20/2024 11:59 PM CDT Hospital Encounter [facility] 1 [place] [address] Rotator cuff arthropathy of right shoulder Discharge Disposition: Discharge to home or self care 11/19/2024 Telephone [facility] Orthopedics and Sports Medicine [address] [place] [address] [address] [place] [address] Golden Rosenbaum MD 11/19/2024 Telephone [facility] 1 [place] [address] Mariia Shook 11/19/2024 Telephone [facility] 1 [place] [address] Mariia Shook 11/17/2024 Telephone [facility] Orthopedics and Sports Medicine [address] [facility] [address] [place] [address] Golden Rosenbaum MD 11/12/2024 Telephone [facility] 1 [place] [address] Heike Mak from Last 3 Months Surgical History Surgery Date Site/Laterality Comments ABSCESS TUBE EXCHANGE 2016 N/A CT GUIDED DRAINAGE PERITONEA L OR RETROPERITONEAL FLUID COLLECTION 01/31/2016 N/A PANCREATICODUODENECTOMY WRIST FRACTURE SURGERY Left Medical History Medical History Date Comments Pancreatic neoplasm Hypertension Edema Anxiety Social History Tobacco Use Types Packs/Day Years Used Date Smoking Tobacco: Never Smokeless Tobacco: Never Tobacco Cessation:Counseling Given: Not Answered Alcohol Use Standard Drinks/Week Comments Never 0 [...] on file Legal Sex Female 7:31 PM MED ASST Gender Identity Not on file Sexual Orientation Not on file Obstetrics History Last Filed Vital Signs Vital Sign Reading Time Taken Comments Blood Pressure 159/85 01/29/2025 9:53 AM CDT Pulse 74 01/29/2025 9:53 AM CDT Temperature 36.3 C (97.3 F) 11/26/2024 7:33 AM CDT Respiratory Rate 18 11/26/2024 7:33 AM CDT Oxygen Saturation 99% 01/29/2025 9:53 AM CDT Inhaled Oxygen Concentration - - Weight 70.4 kg (155 lb 3.2 oz) 01/29/2025 9:53 A M CDT Height 157.5 cm (5' 2.01) 01/29/2025 9:53 AM CD T Body Mass Index 28.38 01/29/2025 9:53 AM CDT Plan of Treatment Health Maintenance Due [...] 01/28/2015, 01/14 Medical Devices Implanted Type Area Director Employment Device Identifier Shelf Expiration Date Model / Serial / Lot Exactech Component 36mm Glenoid Glenosphere Reverse Shoulder 320-31-36 - [id number] - [id number] Implanted:Qty: 1 on 11/25/2024 by Golden Rosenbaum MD at [facility] Right: Shoulder [employer] [id number] 07/08/2034 320-31-36 / [id number] / Ex[employer]ech Equinoxe Lock Reverse Shoulder Glenosphere Screw Bone 320-15-05 - [id number] - [id number] Implanted:Qty: 1 on 11/25/2024 by Golden Rosenbaum MD at [facility] Right: Shoulder [employer] [id number] 06/17/2029 320-15-05 / [id number] / Ex[employer]ech Equinoxe Small Reverse Superior Augment Shoulder 10d Plate 320-35-02 - [id number] - [id number] Implanted:Qty: 1 on 11/25/2024 by Golden Rosenbaum MD at [facility] Right: Shoulder [employer] [id number] 06/17/2034 320-35-02 / [id number] / Ex[employer]ech Equinoxe 4.5mm 34mm Kit Compression Lock Cap Reverse Shoulder 320-20-34 - [id number] - [id number] Implanted:Qty: 1 on 11/25/2024 by Golden Rosenbaum MD at [facility] Right: Shoulder [employer] [id number] 12/04/2028 320-20-34 / [id number] / Ex[employer]ech Equinoxe 4.5mm 34mm Kit Compression Lock Cap Reverse Shoulder 320-20-34 - [id number] - [id number] Implanted:Qty: 1 on 11/25/2024 by Golden Rosenbaum MD at [facility] Right: Shoulder [employer] [id number] 12/23/2028 320-20-34 / [id number] / Ar[employer] Univers Revers Arthrex 5mm Stem Humeral Sterile Ar-9501-05p - [id number] Implanted:Qty: 1 on 11/25/2024 by Golden Rosenbaum MD at [facility] Right: Shoulder [employer] [id number] 08/13/2029 AR-9501-0 5P / .[id number] [employer] Implant Suture Cup Humeral Reverse Right Univers Revers +2x33mm Titanium [id number] - [id number] Implanted:Qty: 1 on 11/25/2024 by Golden Rosenbaum MD at [facility] Right: Shoulder [employer] [id number] 07/14/2029 AR-9502F- 33RCPC / [id number] [employer] Insert Humeral Combo Reverse Poly Univers Revers +3x33mm [id number] - [id number] Implanted:Qty: 1 on 11/25/2024 by Golden Rosenbaum MD at [facility] Right: Shoulder [employer] [id number] 12/14/2028 AR-9503-3 336-3 / .[id number] Procedures Procedure Name Priority Date/Time Associated Diagnosis Comments XR SHOULDER RIGHT 2 OR MORE VIEWS Schedule Routine, Read Routine (OP Routine) 01/22/2025 1:01 PM CDT Status post reverse total shoulder replacement, right MRI ABDOMEN MRCP W WO CONTRAST Schedule Routine, Read Routine (OP Routine) 01/21/2025 7:55 PM CDT Abnormal levels of other serum enzymes Epigastric pain Other disorders of bilirubin metabolism SCAN - OTHER ORDERS 01/07/2025 XR SHOULDER RIGHT 2 OR MORE VIEWS IP Routine 11/25/2024 4:08 PM CDT GRAM STAIN - CERNER NABEEL STAT 11/25/2024 3:14 PM CDT AEROBIC AND ANAEROBIC CULTURE AND GRAM STAIN STAT 11/25/2024 3:14 PM CDT VT AN ELECTIVE ENDOTRACHEAL AIRWAY Routine 11/25/2024 2:16 [...] 3 Months Results * XR Shoulder Right 2 or More Views (01/22/2025 1:01 PM CDT) Anatomical Region Laterality Modality Upper Extremities, Shoulder Right Digi grant Radiography Narrative 01/22/2025 1:19 PM CDT XR show RTSA implants in acceptable position with no signs of fracture or dislocation. us Ambrose FLORES IMG XR PROCEDURES Final Res ult * MRI Abdomen MRCP W WO Contrast Incl 3D (01/21/2025 7:55 PM CDT) Anatomical Region Laterality Modality Body N/A Magnetic Resonan ce 01/22/2025 9:34 AM CDT Impressions 01/22/2025 9:55 AM CDT 1. 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 2. Mild stenosis at the biliary anastomosis in the region of the hepaticojejunostomy. Dictated by: Casey Gamble MD The radiology attending physician has personally reviewed this study, and had reviewed and/or edited this written report and agrees with it. Electronically signed by: Halina Quesada M.D. Narrative 01/22/2025 9:55 AM CDT EXAMINATION: 1. MAGNETIC RESONANCE IMAGING OF THE ABDOMEN WITH AND WITHOUT CONTRAST 2. THREE DIMENSIONAL RECONSTRUCTION OF THE BILIARY TREE AND PANCREATIC DUCT HISTORY: Patient with epigastric pain and abnormal liver function test. Patient is status post Whipple for intraductal pancreatic neoplasm. TECHNIQUE: Magnetic resonance imaging of the abdomen was performed prior to and following the administration of intravenous contrast. The raw data was processed on the scanner by the technologist for 3 dimensional reconstructions of the intrahepatic ducts, extrahepatics ducts, and pancreatic duct. Protocol: Liver MRCP Contrast: Dotarem (gadoterate) 14 mL COMPARISON: CT from 12/17/2019 FINDINGS: Liver: No significant fat or iron deposition. No surface nodularity. - Bile ducts: Mildly dilated sections of the right anterior ducts as well as left ducts in segment 2 and 3 best evaluated on the MRCP, series 36. Changes of hepaticojejunostomy with apparent stenosis at the biliary anastomosis. - Focal liver lesions: Scattered cysts. No suspicious lesion. - Vasculature: Patent hepatic vein, portal vein, splenic and superior mesenteric veins. Hepatic arterial vasculature is patent. Gallbladder: Absent Pancreas: Changes of Whipple procedure. The remnant pancreas is within normal limits. Spleen: Normal with small splenule. Adrenals: Normal Kidneys: Small left lower pole renal cyst. No hydronephrosis. Other Findings: No aggressive osseous lesion. Lung bases are clear. Imaged bowel is within normal limits. Procedure Note Halina Quesada MD - 01/22/2025 EXAMINATION: 1. MAGNETIC RESONANCE IMAGING OF THE ABDOMEN WITH AND WITHOUT CONTRAST 2. THREE DIMENSIONAL RECONSTRUCTION OF THE BILIARY TREE AND PANCREATIC DUCT HISTORY: Patient with epigastric pain and abnormal liver function test. Patient is status post Whipple for intraductal pancreatic neoplasm. TECHNIQUE: Magnetic resonance imaging of the abdomen was performed prior to and following the administration of intravenous contrast. The raw data was processed on the scanner by the technologist for 3 dimensional reconstructions of the intrahepatic ducts, extrahepatics ducts, and pancreatic duct. Protocol: Liver MRCP Contrast: Dotarem (gadoterate) 14 mL COMPARISON: CT from 12/17/2019 FINDINGS: Liver: No significant fat or iron deposition. No surface nodularity. - Bile ducts: Mildly dilated sections of the right anterior ducts as well as left ducts in segment 2 and 3 best evaluated on the MRCP, series 36. Changes of hepaticojejunostomy with apparent stenosis at the biliary anastomosis. - Focal liver lesions: Scattered cysts. No suspicious lesion. - Vasculature: Patent hepatic vein, portal vein, splenic and superior mesenteric veins. Hepatic arterial vasculature is patent. Gallbladder: Absent Pancreas: Changes of Whipple procedure. The remnant pancreas is within normal limits. Spleen: Normal with small splenule. Adrenals: Normal Kidneys: Small left lower pole renal cyst. No hydronephrosis. Other Findings: No aggressive osseous lesion. Lung bases are clear. Imaged bowel is within normal limits. IMPRESSION: 1. 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 2. Mild stenosis at the biliary anastomosis in the region of the hepaticojejunostomy. Dictated by: Casey Gamble MD The radiology attending physician has personally reviewed this study, and had reviewed and/or edited this written report and agrees with it. Electronically signed by: Halina Quesada M.D. Fabiola Granger NP IMG MRI PROCEDURES Final Result * SCAN - OTHER ORDERS (01/07/2025) Provider Scanning Final Result * XR Shoulder [...] Mp Camacho M.D. RB: RB Report ID: [id number] Reading Location: [id number] Procedure Note Mp Camacho MD - 11/26/2024 [...] Mp Camacho M.D. RB: RB Report ID: [id number] Reading Location: [id number] Rima FLORES IMG XR PROCEDURES Feli l Result * Gram stain Miscellaneous Shoulder, right (11/25/2024 3:14 PM CDT) Direct Specimen Exam Stain: Rare polymorphonuclear leukocytes seen. No organisms seen. Miscellaneous (Shoulder, right) 11/25/2024 3:14 PM CDT 11/25/2024 3:24 PM CDT Golden Rosenbaum MD LAB MICROBIOLOGY - GENERAL O RDERABLES Final Result Performing Organization Address City/[facility]/ZIP Co de Phone Number [facility] HERNANDE[facility] ([place]) [address] [facility] [employer] [facility] [place] [address] * Aerobic and anaerobic culture and gram stain Wound Shoulder, right (11/25/2024 3:14 PM CDT) Direct Specimen Exam Stain: Few polymorphonuclear leukocytes seen. No organisms seen. Comment:Testing performed by : [facility], [address] [place]., [address] Report Final Report: No growth [facility] HERNAN[facility] ([place]) Comment:Testing performed by : [facility], [address] [place]., [address] Wound (Shoulder, right) 11/25/2024 3:14 PM CDT 11/25/2024 6:12 PM CDT Narrative [facility] ([place]) - 12/05/2024 10:06 AM CDT Right shoulder stat culture Specimen received on an ESwab. Testing performed by [facility] Microbiology Laboratory ([phone]) Specimens submitted from normally sterile body sites [...] interpretive data was last revised on 2019. Golden Rosenbaum MD LAB MICROBIOLOGY - GENERAL O RDERABLES Final Result Performing Organization Address City/[facility]/ZIP Co de Phone Number [facility] ([place]) 1 [facility] [place] [address] * VT AN ELECTIVE ENDOTRACHEAL AIRWAY (11/25/2024 2:16 PM CDT) Narrative Sintia Sandoval CRNA - 11/25/2024 2:16 PM CDT Sintia Sandoval CRNA 11/25/2024 2:17 PM Airway Patient location: OR Urgency: elective Date/time: 11/25/2024 1:56 PM Indications for airway management: anesthesia Difficult airway: no Staff: Placed by: TECHNOLOGY INFUSION SPECIALIST: Sintia Sandoval CRNA Emergent airway documentation: Risks [...] with: silk tape Number of attempts: 1 us Raul Camarena MD ANESTHESIA ORDERABLES Fi nal [...] BLOOD ORDERABLES Final R esult [facility] ([facility]) [address] [place] [address] * aPTT (11/25/2024 11:52 AM CDT) aPTT 33 26 - 38 sec [facility] ([facility] [place]) Comment: Interpretive Data Heparin therapeutic range: 66.0 - 100.0 seconds. Range based on correlation with therapeutic heparin activity range of 0.3 - 0.7 Units/mL. Current interpretive data was last revised on 2023. Blood 11/25/2024 11:5 2 AM CDT 11/25/2024 11:55 AM CDT Golden Rosenbaum MD LAB BLOOD ORDERABLES Final R esult Performing Organization Address [facility] Co de Phone Number [facility] ([facility] [address] [place] [id number] * Protime-INR (11/25/2024 11:52 AM CDT) PT 11.8 10.2 - 13.5 sec [facility] ([facility] [place]) INR 1.05 0.90 - 1.20 [facility] ([facility] [place]) Comment: Interpretive data Oral anticoagulant therapeutic ranges: Venous thromboembolism prophylaxis or treatment: 2.0-3.0 CARDIOLOGY Standard range: 2.0-3.0 High-intensity range: 2.5-3.5 Refer to indication-specific guidelines for appropriate target ranges for prosthetic heart valve replacement. Current interpretive data was last revised on 2019. Blood 11/25/2024 11:5 2 AM CDT 11/25/2024 11:55 AM CDT Golden Rosenbaum MD LAB BLOOD ORDERABLES Final R esult Performing Organization Address City/[facility] Co de Phone Number [facility] ([facility] [place]) [address] [place] [address] * Surgical pathology (11/25/2024 9:27 AM CDT) Tissue (Bone Fragment(s),) 11/25/2024 2:45 PM CDT Comment:Placed in formalin a t time of drop off Narrative PATHOLOGY [facility] ([facility]) - 12/01/2024 11:47 AM CDT EPIC results best viewed via link to PDF [facility] Department of Pathology [address] [place] [address] Note to Patients: This report may contain [...] Final Report Patient Name: RHINA FERREIRA Address: [address] [place] [address]- Gender: F : 1940 (Age: 84) Service: Surgery Location: [facility] Hospital #: [id number] Patient Type: [facility] OP in bed Taken: 11/25/2024 Received: 11/26/2024 [...] represented in two cassettes. Mary Beth Rocha R.N. P.Virgie./Ness Willett M.D. REPORT IMAGES AND SCANNED DOCUMENTS, IF INCLUDED, ONLY VIEWABLE IN PDF VERSION OF REPORT The performance characteristics of some immunohistochemical stains, fluorescence in-situ hybridization tests and immunophenotyping by flow cytometry cited in this report (if any) were determined by the Surgical Pathology Department at [facility] as part of an ongoing advanced quality engineer program and in compliance with federally [...] characteristics determined by the Surgical Pathology Department [facility]. It has not been cleared or approved by the U. S. Food and Drug Administration. Note for decalcified specimens: This assay has not been validated on decalcified tissues. Results should be interpreted with caution given the possibility of false negativity on decalcified specimens us Golden Rosenbaum MD LAB PATHOLOGY ORDERABLES Fin al Result PATHOLOGY [facility] ([facility] [address] [place] [address] * CT Shoulder Right WO [...] is mild osteoarthritis of the glenohumeral joint. [place] is seen of the greater tuberosity from [...] Ken Blas M.D. MJ: BESS Report ID: [id number] Reading Location: [id number] Procedure Note Ken Blas MD - 11/21/2024 [...] There is mild osteoarthritis of the glenohumeral joint.[place] is seen of the greater tuberosity from [...] 9:04 AM - Electronically signed by Ken KELLOGG: BESS Report ID: [id number] Reading Location: [place] [address] Golden Rosenbaum MD IM CT PROCEDURES Final Resu lt from Last 3 Months Insurance MEDICARE [place] MEDICARE [employer] [place] MEDICARE [employer] [facility] Advance Directives For more information, please contact: [phone] * Full Code (Latest Code Status on File) Date Activated Date Inactivated Comments 11/25/2024 5:24 PM 11/26/2024 5:38 PM Care Teams Portfolio Architect Relationship Specialty Start Date End Date Toni Tracey MD [address] [place], [place] [id number] PCP - General 02/29/16 Sebastian Lowery OT Occupational Therapist Occupational Therapy 11/12/24 Burak Mari NP [address] [place] [address] [place] [place] [address] Nurse Practitioner Orthopedic Surgery 11/25/24
[2025-01-31 07:09] LABS: CA 19-9 39 U/mL (0-35)
[2025-01-31 08:08] LABS: Immunoglobulin G, Qn 611 mg/dL (586-1602)
== END 2025-01-29 16:02 | disposition home or self-care (01) ==
LOC: CHSLAB 16:06
PROVIDERS: PCP Internal Medicine
DX: K75.81 Nonalcoholic steatohepatitis (NASH) (principal); K74.69 Other cirrhosis of liver; D37.9 Neoplasm of uncertain behavior of digestive organ, unspecified; K75.89 Other specified inflammatory liver diseases
CPT/HCPCS: 36415; 80053; 82784; 86003; 86301; 86381

== ENCOUNTER 2025-02-12 13:30 | Outpatient (CLI) | payer MEDICARE, OTHER, SELFPAY ==
--- NOTE | ~2025-02-12 | US_ITS ---
Clinical History: B/L CAROTID STENOSIS Examination: US carotid duplex BI Comparison: Carotid duplex 08/14/2024 Technique: Grayscale, color, duplex/spectral Doppler sonography carotid and vertebral arteries. Distal CCA and Peak ICA systolic velocities provided. Society of Radiologists in Ultrasound (SRU) consensus criteria utilized, indirectly assessing stenosis by velocities. Findings: Scattered plaque Right side: CCA - 100 cm/sec. ICA - 127 cm/sec. ICA/CCA - 1.3 Left Side: CCA - 108 cm/sec. ICA - 69 cm/sec. ICA/CCA - 0.6 Normal antegrade flow measured bilateral vertebral arteries. IMPRESSION: 1. 50-69% stenosis right ICA. Unchanged. 2. No hemodynamically significant left ICA stenosis (i.e., if any stenosis, less than 50%). 3. Normal bilateral antegrade vertebral artery flow. Stenosis measured by Society of Radiologists in Ultrasound (SRU) criteria. Reviewed, dictated and finalized at location R. IMPRESSION: 1. 50-69% stenosis right ICA. Unchanged. 2. No hemodynamically significant left ICA stenosis (i.e., if any stenosis, le ss than 50%). 3. Normal bilateral antegrade vertebral artery flow. Stenosis measured by Society of Radiologists in Ultrasound (SRU) criteria.
--- OUTSIDE RECORDS SUMMARY | 2025-02-12 14:07 | XMS_ITS | Clinical Summary ---
Author Organization [facility] [employer] Address [address] [place] [address] Care Team Providers Care Oracle Hrms Developer Name Role Phone Unavailable Primary Care Provider Unavailabl e Source Comments [facility] [employer],non-owned Affiliates and Associated Physician Practices is amultiple site organization consisting of ambulatory clinics and hospital sitesin [place], [place], [place] and [place]. This disclosure is being madepursuant to the Care Everywhere program and may not contain all information available regarding this patient. 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
--- OUTSIDE RECORDS SUMMARY | 2025-02-12 14:07 | XMS_ITS | Clinical Summary ---
Author Organization [facility] Address [address] [place] [address] Care Team Providers Care Caddy/Caddie Supervisor Name Role Phone Toni Tracey MD Primary Care Provider Sebastian Lowery OT Unavailable Unavailable Burak Mari SUPERVISOR CARDING Unavailable [phone] Allergies Active Allergy Reactions Criticality Noted Date Comments Codeine Stomach upset Low 01/29/2025 Constipation Medications ALPRAZolam (XANAX) 0.25 mg tablet prn 0 0 10/15/19 14 Active multivitamin capsule 0 0 10/16/19 14 Active CYANOCOBALAMIN /FOLIC ACID (VITAMIN [id number] ACID) 1,000-400 mcg tablet, sublingual 0 0 [...] Encounters Date Type Department Care Team Description 02/10/2025 Telephone [facility] G[facility]enterology [address] [facility] [address]th [place] [address] [place] [address] Bela Hendrix LPN 02/10/2025 Orders Only [facility] [address] [facility] 12th [place] [address] [place] [address] Bela Hendrix LPN Hepatic steatosis (Primary Dx); 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, unspecified; Hepatitis cholestatic 02/06/2025 Documentation [facility] [address] [facility] [address] [place] [address] Melanie Phillips MD 01/29/2025 9:40 AM CDT Office Visit [facility] [address] [facility] [address], [address] [place] [address] Melanie Phillips MD Hepatic steatosis (Primary Dx); Hepatitis cholestatic; 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, unspecified 01/29/2025 Orders Only [facility] Scanning, Provider 01/29/2025 Telephone [facility] Gastro[facility]ology Pending sale to [facility] [facility] [address]th [place] [address] [place] [address] Bela Hendrix LPN 01/22/2025 1:15 PM CDT Office Visit [facility] [address] [place] [address] [address] [address] Ambrose Stovall PA Status post reverse total shoulder replacement, right (Primary Dx) 01/22/2025 8:08 AM CDT - 01/22/2025 11:59 PM CDT Hospital Encounter [facility] [address] [place] [address] [address] [address] Discharge Disposition: Discharge to home or self care 01/22/2025 Orders Only [facility] [address] [place] [address] [address], [place] [address] Ambrose Stovall PA Status post reverse total shoulder replacement, right (Primary Dx) 01/22/2025 Documentation [facility] Scheduling [address] [place] [address] Tamela Lyles DOC 01/21/2025 6:24 PM CDT - 01/21/2025 11:59 PM CDT Hospital Encounter [facility] ([facility]) [address] [place] [address] Abnormal levels of other serum enzymes; Epigastric pain; Other disorders of bilirubin metabolism Discharge Disposition: Discharge to home or self care 01/07/2025 Orders Only [facility] Health Information Management 1 [place] [address] Scanning, Provider 12/16/2024 Orders Only [facility] Orthopedics and Sports Medicine [address] [place] [address] [address] [place] [address] Burak Mari NP Status post reverse total shoulder replacement, right (Primary Dx) 12/09/2024 1:00 PM CDT Telemedicine [facility] Orth[facility]ics [facility] Sports Medicine [address] [place] [address] [address] [place] [address] Burak Mari NP Status post reverse total shoulder replacement, right (Primary Dx) 12/09/2024 Orders Only [facility] Medicine [address] [place] [address] [address] [place] [address] Burak Mari NP Status post reverse total shoulder replacement, right (Primary Dx) 12/09/2024 Telephone [facility] Medicine [address] [place] [address] [address] [place] [address] Burak Mari NP 11/27/2024 [facility] Post Discharge Follow up phone call [facility] 1 [place] [address] Rebekah Jarvis 11/25/2024 1:49 PM CDT Anesthesia Event [facility] Operating Room 1 [place] [address] Raul Camarena MD Alexander, Jeffrey Michael, DO 11/25/2024 1:30 PM CDT - 11/25/2024 4:00 PM CDT Surgery [facility] Operating Room 1 [place] [address] Golden Rosenbaum MD Right reverse total shoulder arthroplasty 11/25/2024 11:18 AM CDT - 11/26/2024 1:38 PM CDT Hospital Encounter [facility] 1 [place] [address] Golden Rosenbaum MD Rotator cuff tear arthropathy of right shoulder Discharge Disposition: Discharge to home or self care 11/20/2024 4:03 PM CDT - 11/20/2024 11:59 PM CDT Hospital Encounter [facility] 1 [place] [address] Rotator cuff arthropathy of right shoulder Discharge Disposition: Discharge to home or self care 11/19/2024 Telephone [facility] Orthopedics and Sports Medicine [address] [facility] [address] [place] [address] Golden Rosenbaum MD 11/19/2024 Telephone [facility] 1 [place] [address] Mariia Shook 11/19/2024 Telephone [facility] [address] [place] [address] Mariia Shook 11/17/2024 Telephone [facility] Orthopedics and Sports Medicine [address] [facility] [address] [place] [address] Golden Rosenbaum MD 11/12/2024 Telephone [facility] 1 [place] [address] Heike Mak from Last 3 Months Surgical [...] on file Legal 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 Gender Identity Not on file Sexual Orientation [...] 01/28/2015, 01/14 Medical Devices Implanted Type Area Electric Motor Mechanic Device Identifier Shelf Expiration Date Model / Serial / Lot Exactech Component 36mm Glenoid Glenosphere Reverse Shoulder 320-31-36 - [id number] - [id number] Implanted:Qty: 1 on 11/25/2024 by Golden Rosenbaum MD at [facility] Right: Shoulder [employer] [id number] 07/08/2034 320-31-36 / [id number] / Exactech Equinoxe Lock Reverse Shoulder Glenosphere Screw Bone 320-15-05 - [id number] - [id number] Implanted:Qty: 1 on 11/25/2024 by Golden Rosenbaum MD at [facility] Right: Shoulder [employer] [id number] 06/17/2029 320-15-05 / [id number] / Exactech Equinoxe Small Reverse Superior Augment Shoulder 10d Plate 320-35-02 - [id number] - [id number] Implanted:Qty: 1 on 11/25/2024 by Golden Rosenbaum MD at [facility] Right: Shoulder [employer] [id number] 06/17/2034 320-35-02 / [id number] / Exactech Equinoxe 4.5mm 34mm Kit Compression Lock Cap Reverse Shoulder 320-20-34 - [id number] - [id number] Implanted:Qty: 1 on 11/25/2024 by Golden Rosenbaum MD at [facility] Right: Shoulder [employer] [id number] 12/04/2028 320-20-34 / [id number] / Exactech Equinoxe 4.5mm 34mm Kit Compression Lock Cap Reverse Shoulder 320-20-34 - [id number] - [id number] Implanted:Qty: 1 on 11/25/2024 by Golden Rosenbaum MD at [facility] Right: Shoulder [employer] [id number] 12/23/2028 320-20-34 / [id number] / [employer] Univers Revers Arthrex 5mm Stem Humeral Sterile Ar-9501-05p - [id number] Implanted:Qty: 1 on 11/25/2024 by Golden Rosenbaum MD at [facility] Right: Shoulder [employer] [id number] 08/13/2029 AR-9501-0 5P 26725 [employer] Implant Suture Cup Humeral Reverse Right Univers Revers +2x33mm Titanium [id number] - [id number] Implanted:Qty: 1 on 11/25/2024 by Golden Rosenbaum MD at [facility] Right: Shoulder [employer] Inc [id number] 07/14/2029 AR-9502F- [id number] .[id number] [employer] Insert Humeral Combo Reverse Poly Univers Revers +3x33mm [id number] - [id number] Implanted:Qty: 1 on 11/25/2024 by Golden Rosenbaum MD at [facility] Right: Shoulder [employer] [id number] 12/14/2028 AR-9503-3 [id number]-.[id number] Procedures Procedure Name Priority Date/Time Associated Diagnosis Comments SCAN - LABS 01/29/2025 XR SHOULDER RIGHT 2 OR MORE VIEWS [...] GRAM STAIN STAT 11/25/2024 3:14 PM CDT KS AN ELECTIVE ENDOTRACHEAL AIRWAY Routine 11/25/2024 2:16 [...] Last 3 Months Results * SCAN - LABS (01/29/2025) us Provider Scanning Edited Result - Final * XR Shoulder Right 2 or More [...] by: Halina Quesada M.D. Fabiola Granger NP IM MRI PROCEDURES Final Result * SCAN - [...] Mp Camacho M.D. RB: ADILSON Report ID: [id number] Reading Location: [id number] Procedure Note Mp Camacho MD - 11/26/2024 [...] Mp Camacho M.D. RB: ADILSON Report ID: [id number] Reading Location: [place] [address] Rima FLORES IMG XR PROCEDURES Feli l Result * Gram stain Miscellaneous Shoulder, right (11/25/2024 3:14 PM CDT) Direct Specimen Exam Stain: Rare polymorphonuclear leukocytes seen. No organisms seen. Miscellaneous (Shoulder, right) 11/25/2024 3:14 PM CDT 11/25/2024 3:24 PM CDT Golden Rosenbaum MD LAB MICROBIOLOGY - GENERAL O RDERABLES Final Result [facility] ([facility]ERTUS) [address] [facility] Department [place] [address] * Aerobic and anaerobic culture and gram stain Wound Shoulder, right (11/25/2024 3:14 PM CDT) Direct Specimen Exam Stain: Few polymorphonuclear leukocytes seen. No organisms seen. Comment:Testing performed by : [facility], [address] [place]., [address] Report Final Report: No growth [facility] (JERSON) Comment:Testing performed by : [facility], [address] [place]., [address] Wound (Shoulder, right) 11/25/2024 3:14 PM CDT 11/25/2024 6:12 PM CDT Narrative SOLOMON DAVID ([facility]UBERTUS) - 12/05/2024 10:06 AM CDT Right shoulder stat culture Specimen received on an ESwab. Testing performed by [facility] Microbiology Laboratory ([phone]) Specimens submitted from normally sterile body sites [...] MICROBIOLOGY - GENERAL O RDERABLES Final Result MANNYVINH HERNANDEZ ([place]) [address] [facility] Department [place] [address] * KS AN ELECTIVE ENDOTRACHEAL AIRWAY (11/25/2024 2:16 PM CDT) Narrative Sintia Sandoval CRNA - 11/25/2024 2:16 PM CDT Sintia Sandoval CRNA 11/25/2024 2:17 PM Airway Patient location: OR Urgency: elective Date/time: 11/25/2024 1:56 PM Indications for airway management: anesthesia Difficult airway: no Staff: Placed by: PRODUCT PROMOTER [employer] PET: Sintia Sandoval CRNA Emergent airway documentation: Risks [...] ORDERABLES Final R esult Performing Organization Address [facility] Co de Phone Number [facility] ([place]) [address] [facility] [place] [address] * aPTT (11/25/2024 11:52 AM CDT) aPTT 33 26 - 38 sec [facility] ([place]ERT[place]) Comment: Interpretive Data Heparin therapeutic range: 66.0 - 100.0 seconds. Range based on correlation with therapeutic heparin activity range of 0.3 - 0.7 Units/mL. Current interpretive data was last revised on 2023. Blood 11/25/2024 11:5 2 AM CDT 11/25/2024 11:55 AM CDT Golden Rosenbaum MD LAB BLOOD ORDERABLES Final R esult Performing Organization Address City/[facility]/ZIP Co de Phone Number [facility] ([place]) [address] [facility] [place] [address] * Protime-INR (11/25/2024 11:52 AM CDT) PT 11.8 10.2 - 13.5 sec [facility] ([place]) INR 1.05 0.90 - 1.20 [facility] (HUBERTUS) Comment: Interpretive data Oral anticoagulant therapeutic ranges: Venous thromboembolism prophylaxis or treatment: 2.0-3.0 CARDIOLOGY Standard range: 2.0-3.0 High-intensity range: 2.5-3.5 Refer to indication-specific guidelines for appropriate target ranges for prosthetic heart valve replacement. Current interpretive data was last revised on 2019. Blood 11/25/2024 11:5 2 AM CDT 11/25/2024 11:55 AM CDT us Golden Rosenbaum MD LAB BLOOD ORDERABLES Final R esult SOLOMON [facility] ([place]ERT[facility]) [address] [place] [address] Department [place] [address] * Surgical pathology (11/25/2024 9:27 AM CDT) Tissue (Bone Fragment(s),) 11/25/2024 2:45 PM CDT Comment:Placed in formalin a t time of drop off Narrative PATHOLOGY [facility] (HUBERTUS) - 12/01/2024 11:47 AM CDT EPIC results best viewed via link to PDF [facility] Department of Pathology [address] [place] [address] Note to Patients: This report may contain [...] Final Report Patient Name: RHINA FERREIRA Address: [address] [place] [address]- Gender: F : 1940 (Age: 84) Service: Surgery Location: [facility] Hospital #: [id number] Patient Type: [facility] EP OP in bed Taken: 11/25/2024 Received: [...] arthroplasty. Gross Description: The container is labeled HRINA FERREIRA and right shoulder. It is a [...] Hospital as part of an ongoing quality control clerk program and in compliance with federally mandated [...] characteristics determined by the Surgical Pathology Department [facility]. It has not been cleared or approved by the U. S. Food and Drug Administration. Note for decalcified specimens: This assay has not been validated on decalcified tissues. Results should be interpreted with caution given the possibility of false negativity on decalcified specimens Golden Rosenbaum MD LAB PATHOLOGY ORDERABLES Fin al Result PATHOLOGY [facility] ([facility]) [address] [place] [address] * CT Shoulder Right WO Contrast (11/20/2024 [...] is mild osteoarthritis of the glenohumeral joint. [place] is seen of the greater tuberosity from [...] Ken Blas M.D. MJ: BESS Report ID: [id number] Reading Location: [id number] Procedure Note Ken Blas MD - 11/21/2024 [...] There is mild osteoarthritis of the glenohumeral joint.[place] is seen of the greater tuberosity from [...] Ken Blas M.D. MJ: BESS Report ID: [id number] Reading Location: [id number] us Golden Rosenbaum MD IMG CT PROCEDURES Final Resu lt from Last 3 Months Insurance MEDICARE [facility] [place] [id number] MEDICARE [employer]ICARE [employer] Advance Directives For more information, please contact: [phone] * Full Code (Latest Code Status on File) Date Activated Date Inactivated Comments 11/25/2024 5:24 PM 11/26/2024 5:38 PM Care Teams Caddy/Caddie Supervisor Relationship Specialty Start Date End Date Toni Tracey MD [address] [place] [address] PCP - General 02/29/16 Sebastian Lowery, OT Occupational Therapist Occupational Therapy 11/12/24 Burak Mari, TANIYA [address] [place] [address] DR PIERCE [address] [place] [address] Nurse Practitioner Orthopedic Surgery 11/25/24
--- OUTSIDE RECORDS SUMMARY | 2025-02-12 14:07 | XMS_ITS | Encounter Summary ---
Author Organization [facility] Address [address] [place] [address] Care Team Providers Care Quickbooks Bookkeeper Name Role Phone Toni Tracey MD Primary Care Provider [phone] Sebastian Lowery OT Unavailable Unavailable Burak Mari ERRAND RUNNER Unavailable [phone] Encounter Details Date Type Department Care Team (Late st Contact Info) Description 12/16/2019 Telephone [facility] - Imaging [address] [place] [address] Transcribed Order, Provider Social History Tobacco Use Types Packs/Day Years Used Date Smoking Tobacco: Never Smokeless Tobacco: Never Comments No Sex and Gender Information Value Date Recorded Sex Assigned at Not on file Legal Sex Female 7:31 PM BUSINESS OBJECTS Gender Identity Not on file Sexual Orientation Not on file documented as of this encounter Plan of Treatment Not on file documented as of this encounter Visit Diagnoses Not on filedocumented in this encounter Care Teams Quickbooks Bookkeeper Relationship Specialty Start Date End Date Toni Tracey MD [address] [place] [address] PCP - General 02/29/16 Sebastian Lowery, OT Occupational Therapist Occupational Therapy 11/12/24 Burak Mari, TANIYA [address] [place] [address] [place] [address] Nurse Practitioner Orthopedic Surgery 11/25/24 documented as of this encounter
--- OUTSIDE RECORDS SUMMARY | 2025-02-12 14:07 | XMS_ITS | Clinical Summary ---
Author Organization [facility] Address [address] [place] [address] Care Team Providers Care Wound/Ostomy Clinical Nurse Specialist Name Role Phone Unavailable Primary Care Provider [...] - 1-dose 75+ series) 2017 COVID-19 Vaccine (2024-2 6 season) 2024 Influenza Adult (#1) 2025 Hepatitis A Vaccines Aged Out No long er eligible based on patient's age to complete this topic Meningococcal B Vaccine Aged Out No l onger eligible based on patient's age to complete this topic Meningococcal Vaccine Aged Out No komal chavo eligible based on patient's age to complete this topic RSV Immunizations Under 20 Months Aged Out No longer eligible based on patient's age to complete this topic
[2025-02-12 14:09] LABS: Alanine Aminotransferase 41 U/L (6-35); Albumin Level 4.4 g/dL (3.5-5.1); Alkaline Phosphatase 200 U/L (38-126); Anion Gap 12 mmol/L (4-12); Aspartate Amino Transferase 41 U/L (14-36); Bilirubin,Total 0.8 mg/dL (0.2-1.3); Blood Urea Nitrogen 17 mg/dL (7-17); Calcium 9.4 mg/dL (8.4-10.2); Carbon Dioxide 25 mmol/L (22-30); Chloride 100 mmol/L (98-107); Estimated Glomerular Filt Rate > 60; Glucose 170 mg/dL (65-110); Osmolality Calculated 289 mOsm/kg (285-295); Potassium 4.5 mmol/L (3.4-5.0); Sodium 137 mmol/L (137-145); Total Protein 6.3 g/dL (6.3-8.2)
[2025-02-13 07:09] LABS: CA 19-9 26 U/mL (0-35)
[2025-02-13 08:22] LABS: Immunoglobulin G 635 mg/dL (700-1600)
== END 2025-02-12 13:31 | disposition home or self-care (01) ==
PROVIDERS: PCP Internal Medicine
DX: I65.23 Occlusion and stenosis of bilateral carotid arteries (principal); K76.0 Fatty (change of) liver, not elsewhere classified; D37.9 Neoplasm of uncertain behavior of digestive organ, unspecified; K75.89 Other specified inflammatory liver diseases
CPT/HCPCS: 36415; 80053; 82784; 86301; 86381; 93880